=== PATIENT | male | born 1950 | race Caucasian/White ===

== ENCOUNTER 2019-08-08 14:22 | Emergency (ER) | payer OTHER ==
[2019-08-08 15:21] LABS: Basophils % 0.6 % (0-1.3); Lymphocytes % 10.1 % (15.3-44.8); MPV 7.8 fL (7.6-11.3); RBC Red Blood Cell Count 3.82 M/uL (4.33-5.43)
[2019-08-08 15:34] LABS: Albumin 3.5 g/dL (3.4-5.0); Bilirubin Direct 0.2 mg/dL (0-0.2); Bilirubin Total 0.6 mg/dL (0.2-1.0); Potassium 4.4 mmol/L (3.5-5.1); Protein, Total 7.9 g/dL (6.4-8.2)
--- NOTE | 2019-08-08 16:42 | RAD REPORT ---
EXAM DESCRIPTION: CT - Abdomen Pelvis Wo Contrast - 08/08/2019 4:20 pm CLINICAL HISTORY: ABD PAIN COMPARISON: CT ABD PELVIS W WO CONTRAST dated 01/11/2010 TECHNIQUE: Axial [address] imaging of the abdomen and pelvis was performed without IV contrast. No IV contrast was given because of allergy, abnormal renal function, patient refusal or physician re quest. No oral contrast administered. All CT scans are performed using dose optimization technique as appropriate and may include automated exposure control or mA/KV adjustment according to patient size. FINDINGS: No suspicious findings in the lung bases. The liver, spleen and pancreas show no suspicious findings on non-contrast imaging. Gallbladder and b iliary tree are also without suspicious finding. Moderate hydronephrosis of the pelvis and calices on the right noted secondary to an 8 mm UPJ calculu s. No other obstructing or nonobstructing calculi seen. Right kidney is mildly edematous when compare d with the left. No left-sided calculus or hydronephrosis. There is stranding along the course of the right ureter and there is stranding in the right lower quadrant. This is believed to be related a nd not appendicitis stranding. Nonobstructing calculi are seen in the lower pole of the right kidney. An exophytic 20 millimeter homogeneous hyperdense right renal mass is believed to be a high protein content cysts. The cyst has enlarged from 2009. No significant adrenal finding. Isodense renal masses and pyelonephritis cannot be excluded in the absence of IV contrast. The urinary bladder is without significant finding. Parapelvic cysts noted on the left. No dilated bowel loops or bowel wall thickening. Moderate stool volume is present in the colon. Acute appendicitis is not suspected. No free air or pneumatosis. No mass or bulky lymphadenopathy. Bilater al fat filled inguinal hernias are present. Disc and bone degenerative changes are present. Advanced degenerative disc disease present at L2-3 an d L3-4. No pathologic bone process. Dense arterial tree calcifications are present. IMPRESSION: Moderate severity hydronephrosis of the right side pelvis and calices secondary to an 8 mm UPJ calculus. Stranding is present along the course of the right ureter and there is stranding in the right lower q uadrant that is believed to be related to the system and not related to appendicitis. Full assessment is limited is the absence of IV contrast.
[2019-08-08] MEDS ORDERED: ONDANSETRON 4 MG/2 ML VIAL ONE ×2 (17:50→19:48)
[2019-08-08] MEDS ORDERED: MORPHINE 4 MG/ML SYR ONE (17:50)
--- NOTE | 2019-08-08 18:44 | ER ---
Nurse's Notes [facility] Name: Jose Perry Age: 68 yrs Sex: Male : 1950 Arrival Date: 08/08/2019 Time: 14:24 Bed 6 Private MD: Sagar Cavanaugh Diagnosis: 8 mm right UPJ stone, right hydronephrosis;Abdominal and pelvic pain;Unspecified kidney failure Presentation: 08/07 14:33 Chief complaint: Chief complaint: Patient states: RLQ pain x 7 days, feeling bloated, jl7 constipated, last BM 08/06/2019 with bilateral flank pain for a few days now. Denies nausea. Coronavirus screen: The patient has NOT traveled to a country currently being monitored by the CDC within the last 14 days. Proceed with normal triage procedures. Ebola Screen: No symptoms or risks identified at this time. Initial Sepsis Screen: Does the patient meet any 2 criteria? No. Patient's initial sepsis screen is negative. Does the patient have a suspected source of infection? No. Patient's initial sepsis screen is negative. Risk Assessment: Do you want to hurt yourself or someone else? Patient reports no desire to harm self or others. Onset of symptoms was August 01, 2019. 14:33 Method Of Arrival: Ambulatory [facility] 14:33 Acuity: JESISKA 3 jl7 Triage Assessment: 14:40 General: Appears in no apparent distress. uncomfortable, Behavior is calm, cooperative, jl7 appropriate for age. Pain: Complains of pain in right lower quadrant Pain currently is 4 out of 10 on a pain scale. Neuro: Level of Consciousness is awake, alert, obeys commands. GI: Abdomen is non-distended. Historical: - Allergies: 14:40 No Known Allergies; jl7 - Home Meds: 14:40 Metformin Oral [Active]; losartan oral oral [Active]; jl7 - PMHx: 14:40 Diabetes - NIDDM; Hypertension; jl7 - PSHx: 14:40 corneal transplant- right; jl7 - Immunization history:: Adult Immunizations not up to date. - Social history:: Smoking status: Patient denies any tobacco usage or history of. Screenin:15 Abuse screen: Denies threats or abuse. Denies injuries from another. Nutritional sg screening: No deficits noted. Tuberculosis screening: No symptoms or risk factors identified. Never had TB. Fall Risk None identified. Assessment: 15:00 General: Appears in no apparent distress. uncomfortable, well groomed, well developed, sg well nourished, Behavior is calm, cooperative, appropriate for age. Pain: Complains of pain in right lower quadrant Quality of pain is described as aching. Neuro: Level of Consciousness is awake, alert, obeys commands, Oriented to person, place, time, End User Support Specialist are equal bilaterally Moves all extremities. Speech is normal, Facial symmetry appears normal. Cardiovascular: Capillary refill is brisk in bilateral fingers Patient's skin is warm and dry. Chest pain is denied. Respiratory: Airway is patent Respiratory effort is even, unlabored, Respiratory pattern is regular, symmetrical. GI: Abdomen is round non-distended, obese, Bowel sounds present X 4 quads. Abd is soft X 4 quads Abdomen is tender to palpation in right lower quadrant. : Reports pain in right flank(s). EENT: No signs and/or symptoms were reported regarding the EENT system. Derm: Skin is pink, warm \T\ dry. Musculoskeletal: Circulation, motion, and sensation intact. Range of motion: intact in all extremities. 16:30 Reassessment: Patient appears in no apparent distress at this time. Patient and/or hb family updated on plan of care and expected duration. Pain level reassessed. Patient is alert, oriented x 3, equal unlabored respirations, skin warm/dry/pink. 17:30 Reassessment: Patient appears in no apparent distress at this time. Patient and/or hb family updated on plan of care and expected duration. Pain level reassessed. Patient is alert, oriented x 3, equal unlabored respirations, skin warm/dry/pink. 18:30 Reassessment: Patient appears in no apparent distress at this time. Patient and/or hb family updated on plan of care and expected duration. Pain level reassessed. Patient is alert, oriented x 3, equal unlabored respirations, skin warm/dry/pink. 19:30 Reassessment: Patient appears in no apparent distress at this time. Patient and/or ah family updated on plan of care and expected duration. Pain level reassessed. Pt states that pain is creeping back up. He rates it at 4/10. Informed Dr Aranda and her gave order for Dilaudid and Zofran. No other needs voiced at this time. 20:50 Reassessment: Report called to BE Olivares. Receiving nurse. Vital Signs: 14:33 BP 138 / 66; Pulse 58; Resp 16 S; Temp 98.2(O); Pulse Ox 97% on R/A; Pain 4/10; jl7 17:00 BP 141 / 75; Pulse 49; Resp 16; Pulse Ox 100% on R/A; Pain 5/10; hb 18:00 BP 137 / 71; Pulse 48; Resp 16; Pulse Ox 99% on R/A; hb 19:33 BP 136 / 67; Pulse 50; Resp 17; Pulse Ox 99% ; ah 20:30 BP 142 / 82; Pulse 52; Resp 17; Temp 98; Pulse Ox 98.0% ; ah ED Course: 14:24 Patient arrived in ED. ag5 14:24 Sagar Cavanaugh MD is Private Physician. ag5 14:39 Triage completed. jl7 14:40 Arm band placed on right wrist. jl7 14:53 Rey Lizama MD is Attending Physician. kdr 15:00 Patient has correct armband on for positive identification. Bed in low position. Call sg light in reach. equipment monitor phototypesetting on. Pulse ox on. NIBP on. Head of bed elevated. 15:42 Initial lab(s) drawn, by ED staff, sent to lab. Inserted saline lock: 20 gauge in right sg antecubital area, using aseptic technique. 16:14 Adi Lovett RN is Primary Nurse. 16:21 CT completed. Patient tolerated procedure well. Patient moved to OR via wheelchair. nv Patient moved back from OR. 19:08 Attending Physician role handed off by Rey Lizama MD [facility] 19:08 Tre Aranda MD is Attending Physician. [facility] 19:52 Urine Culture Sent. 4 21:00 No provider procedures requiring assistance completed. Patient transferred, IV remains in place. intact. Administered Medications: 17:50 Drug: morphine 4 mg {Note: pre medication Alert and calm - 0 .} Route: IVP; Site: right dm5 antecubital; 21:33 Follow up: Response: No adverse reaction 17:51 Drug: Zofran (Ondansetron) 4 mg Route: IVP; Site: right antecubital; dm5 21:33 Follow up: Response: No adverse reaction 19:37 Drug: Rocephin 1 grams Route: IV; Rate: per protocol; Site: right antecubital; 19:50 Drug: Zofran (Ondansetron) 4 mg Route: IVP; Site: left antecubital; 21:33 Follow up: Response: No adverse reaction 19:51 Drug: Dilaudid 0.5 mg {Note: RASS 1.} Route: IVP; Site: left antecubital; 21:33 Follow up: Response: No adverse reaction 21:10 Drug: Dilaudid 0.5 mg Route: IVP; Site: right antecubital; 21:32 Follow up: Response: No adverse reaction; Pain is decreased Outcome: 18:40 ER care complete, transfer ordered by . kdr 20:50 Transferred by ground EMS to [facility], Transfer form completed. X-rays sent w/ patient. 20:50 Condition: stable 20:50 Discharge instructions given to patient, family, Instructed on the need for transfer, Demonstrated understanding of instructions. 21:35 Patient left the ED. Addendum: 08/13/2019 08:02 Addendum: Culture Results: Positive urine culture. Phone call Attempt #1 Called [facility]. Pt has been treated and discharged home to follow up. Signatures: Mulu Galvan RN BE dm5 Adi Lovett RN RN sg Anderson, Corey, MD MD cha Rittger, Kevin, MD MD kdr Smirch, Shelby, RN RN ss Swanson, Donovan ds4 Peggy York RN RN hb Jordan, Nathan nj Leal, Jahala, RN RN jl7 Perla Peraza Amy, RN RN Corrections: (The following items were deleted from the chart) 08/07 18:03 17:50 morphine 4 mg IVP in right antecubital frederic dm5 19:57 19:51 Dilaudid 0.5 mg IVP in left antecubital [facility]
--- NOTE | 2019-08-08 18:44 | EDPHYS ---
Physician Documentation [facility] Name: Jose Perry Age: 68 yrs Sex: Male : 1950 Arrival Date: 08/08/2019 Time: 14:24 Bed 6 Private MD: Sagar Cavanaugh ED Physician Tre Aranda HPI: 08/07 18:46 This 68 yrs old Male presents to ER via Ambulatory with complaints of kdr Abdominal Pain. 18:46 The patient presents with abdominal pain right lower quadrant, Also, bilateral flank kdr pain and bloating. Onset: The symptoms/episode began/occurred gradually, 7 day(s) ago. The symptoms radiate to both flanks. Associated signs and symptoms: Pertinent positives: nausea. The symptoms are described as achy, crampy, dull, vague, waxing/waning. Modifying factors: The symptoms are alleviated by nothing, the symptoms are aggravated by movement. Severity of pain: At its worst the pain was moderate severe this morning, in the emergency department the pain has improved mildly. The patient has not experienced similar symptoms in the past. The patient has not recently seen a physician. Historical: - Allergies: 14:40 No Known Allergies; jl7 - Home Meds: 14:40 Metformin Oral [Active]; losartan oral oral [Active]; jl7 - PMHx: 14:40 Diabetes - NIDDM; Hypertension; jl7 - PSHx: 14:40 corneal transplant- right; jl7 - Immunization history:: Adult Immunizations not up to date. - Social history:: Smoking status: Patient denies any tobacco usage or history of. ROS: 18:46 Constitutional: Negative for fever, chills, and weight loss, Eyes: Negative for injury, kdr pain, redness, and discharge, ENT: Negative for injury, pain, and discharge, Neck: Negative for injury, pain, and swelling, Cardiovascular: Negative for chest pain, palpitations, and edema, Respiratory: Negative for shortness of breath, cough, wheezing, and pleuritic chest pain, : Negative for injury, bleeding, discharge, and swelling, MS/Extremity: Negative for injury and deformity, Skin: Negative for injury, rash, and discoloration, Neuro: Negative for headache, weakness, numbness, tingling, and seizure activity. Psych: Negative for depression, anxiety, suicide ideation, homicidal ideation, and hallucinations, Allergy/Immunology: Negative for hives, rash, and allergies, Endocrine: Negative for neck swelling, polydipsia, polyuria, polyphagia, and marked weight changes, Hematologic/Lymphatic: Negative for swollen nodes, abnormal bleeding, and unusual bruising. 18:46 Abdomen/GI: Positive for abdominal pain, nausea, Negative for abdominal cramps, abdominal distension, anorexia, black/tarry stool, rectal pain. Exam: 18:46 Constitutional: This is a well developed, well nourished patient who is awake, alert, kdr and in no acute distress. Head/Face: Normocephalic, atraumatic. Eyes: Pupils equal round and reactive to light, extra-ocular motions intact. Lids and lashes normal. Conjunctiva and sclera are non-icteric and not injected. Cornea within normal limits. Periorbital areas with no swelling, redness, or edema. Neck: Trachea midline, no thyromegaly or masses palpated, and no cervical lymphadenopathy. Supple, full range of motion without nuchal rigidity, or vertebral point tenderness. No Meningismus. Chest/axilla: Normal chest wall appearance and motion. Nontender with no deformity. No lesions are appreciated. Cardiovascular: Regular rate and rhythm with a normal S1 and S2. No gallops, murmurs, or rubs. Normal PMI, no JVD. No pulse deficits. Respiratory: Lungs have equal breath sounds bilaterally, clear to auscultation and percussion. No rales, rhonchi or wheezes noted. No increased work of breathing, no retractions or nasal flaring. Skin: Warm, dry with normal turgor. Normal color with no rashes, no lesions, and no evidence of cellulitis. MS/ Extremity: Pulses equal, no cyanosis. Neurovascular intact. Full, normal range of motion. Neuro: Awake and alert, GCS 15, oriented to person, place, time, and situation. Cranial nerves II-XII grossly intact. Motor strength 5/5 in all extremities. Sensory grossly intact. Cerebellar exam normal. Normal gait. Psych: Awake, alert, with orientation to person, place and time. Behavior, mood, and affect are within normal limits. 18:46 Abdomen/GI: Inspection: abdomen appears normal. Vital Signs: 14:33 BP 138 / 66; Pulse 58; Resp 16 S; Temp 98.2(O); Pulse Ox 97% on R/A; Pain 4/10; jl7 17:00 BP 141 / 75; Pulse 49; Resp 16; Pulse Ox 100% on R/A; Pain 5/10; hb 18:00 BP 137 / 71; Pulse 48; Resp 16; Pulse Ox 99% on R/A; hb 19:33 BP 136 / 67; Pulse 50; Resp 17; Pulse Ox 99% ; ah 20:30 BP 142 / 82; Pulse 52; Resp 17; Temp 98; Pulse Ox 98.0% ; ah MDM: 18:40 Patient medically screened. kdr 19:16 Data reviewed: vital signs, nurses notes, lab test result(s), radiologic studies, CT iglesia scan. 08/07 15:06 Order name: Basic Metabolic Panel 08/07 15:06 Order name: CBC with Diff 08/07 15:06 Order name: Creatinine for Radiology 08/07 15:06 Order name: Hepatic Function 08/07 15:06 Order name: Lipase 08/07 15:27 Order name: CBC with Automated Diff; Complete Time: 16:01 EDNY 08/07 15:34 Order name: Creatinine (Radiology Only); Complete Time: 16:01 EDNY 08/07 15:39 Order name: Basic Metabolic Panel; Complete Time: 16:01 EDNY 08/07 15:39 Order name: Liver (Hepatic) Function; Complete Time: 16:01 EDNY 08/07 15:39 Order name: Lipase; Complete Time: 16:01 EDNY 08/07 16:01 Order name: CT Abd/Pelvis - IV Contrast Only [facility] 08/07 17:49 Order name: Abdomen ; Complete Time: 19:16 EDNY 08/07 19:18 Order name: Urine Culture [facility] 08/07 19:53 Order name: Urine Dipstick--Ancillary (enter results) ds4 08/07 15:06 Order name: IV Saline Lock; Complete Time: 15:08 08/07 15:06 Order name: Labs collected and sent; Complete Time: 15:08 08/07 19:18 Order name: Urine Dipstick-Ancillary (obtain specimen); Complete Time: 19:52 [facility] Administered Medications: 17:50 Drug: morphine 4 mg {Note: pre medication Alert and calm - 0 .} Route: IVP; Site: right dm5 antecubital; 21:33 Follow up: Response: No adverse reaction 17:51 Drug: Zofran (Ondansetron) 4 mg Route: IVP; Site: right antecubital; dm5 21:33 Follow up: Response: No adverse reaction 19:37 Drug: Rocephin 1 grams Route: IV; Rate: per protocol; Site: right antecubital; 19:50 Drug: Zofran (Ondansetron) 4 mg Route: IVP; Site: left antecubital; 21:33 Follow up: Response: No adverse reaction 19:51 Drug: Dilaudid 0.5 mg {Note: RASS 1.} Route: IVP; Site: left antecubital; 21:33 Follow up: Response: No adverse reaction 21:10 Drug: Dilaudid 0.5 mg Route: IVP; Site: right antecubital; 21:32 Follow up: Response: No adverse reaction; Pain is decreased Disposition: 08/08/19 18:40 Transfer ordered to [facility]. Diagnosis are 8 mm right UPJ stone, right hydronephrosis, Abdominal and pelvic pain, Unspecified kidney failure. - Reason for transfer: Higher level of care. - Accepting physician is [facility]. - Condition is Fair. - Problem is new. - Symptoms have improved. Signatures: Dispatcher [employer] EDMulu Dailey RN RN dm5 Adi Lovett RN RN sg Anderson, Corey, MD MD cha Rittger, Kevin, MD MD kdr Leal, Jahala, RN RN jl7 Gayle Armando RN RN Corrections: (The following items were deleted from the chart) 19:20 18:40 08/08/2019 18:40 Transfer ordered to [facility]. iglesia Diagnosis is 8 mm right UPJ stone, right hydronephrosis; Abdominal and pelvic pain. Reason for transfer: Higher level of care. Accepting physician is [facility]. Condition is Fair. Problem is new. Symptoms have improved. kdr 21:35 19:20 08/08/2019 18:40 Transfer ordered to [facility]. Diagnosis is 8 mm right UPJ stone, right hydronephrosis; Abdominal and pelvic pain; Unspecified kidney failure. Reason for transfer: Higher level of care. Accepting physician is [facility]. Condition is Fair. Problem is new. Symptoms have improved. iglesia
[2019-08-08] MEDS ORDERED: CEFTRIAXONE/SWI 1gm 1 GM/10 ML SYR ONE (19:34)
[2019-08-08] MEDS ORDERED: HYDROMORPHONE HCL 0.5 MG/0.5 ML INJ ONE ×2 (19:48→21:09)
[2019-08-08 20:09] LABS: Urine Blood NEGATIVE (NEG); Urine Glucose NEGATIVE (NEG); Urine Protein 2+ (NEG); Urine Specific Gravity 1.025 (1.005-1.030); Urine pH 5.5 (5.0-7.0)
[2019-08-08 21:53] VITALS: O2SAT 99
[2019-08-08 21:56] VITALS: BP 142/82; TEMP 98
== END 2019-08-08 21:35 | disposition short-term general hospital (02) ==
LOC: ER 14:22
DX: N13.2 Hydronephrosis with renal and ureteral calculous obstruction (principal); N19 Unspecified kidney failure; I10 Essential (primary) hypertension; E11.9 Type 2 diabetes mellitus without complications
CPT/HCPCS: 87088; 85025; 87086; 80048; 36415; 80076; 87077; 87186; 81003; 83690; 74176; 99285; J1170 ×2; J0696; J2405 ×2

== ENCOUNTER 2020-12-02 15:42 | Emergency (ER) | payer OTHER ==
--- OUTSIDE RECORDS SUMMARY | 2020-12-02 15:44 | XMS REPORT | Continuity of Care Document ---
:1950 Author Organization [facility] t Address [address] [place] [place] [address] Care Team Providers Name Role Phone Ronald Cavanaugh Primary Care Physician Maikol Huang MD Attending Clinician Maikol Huang MD Attending Clinician Nirav NGUYEN Attending Clinician Yuriy LEE Attending Clinician MAIKOL HUANG Attending Clinician Unavailable AYO GALVAN Attending Clinician Unavailable MAIKOL HUANG Admitting Clinician Unavailable AYO GALVAN Admitting Clinician Unavailable Payers Payer Name Policy Type Policy Effective Date Expiration Date Sour ce Number MEDICAREMEDICARE PART [id number] 2018 Stewart Del nAgel [id number] 2017- 00:00:00 - Alysha lowery PresentMedicare Center CIGNA - MGD CARECIGNA [id number] 2016 Stewart Del Angel HMO/POS/OPEN 00:00:00 - Medical [id number]/ [place] [address] C[facility]NACIGNA OPEN [id number] 2013 [place] ACCESS/NETWORKxxxxxxx 00:00:00 Met jony 231 2013-Present MO Problems Condition Condition Condition Status Onset Resolution Last Treating Co mments Source Name Details Category Date Date Treatment Clinician Date Hydronephr Hydronephr Disease Active [facility] osis with osis with 3-13 [facility] - urinary urinary 00:00: Medical obstructio obstructio 00 Ce nter n due to n due to renal renal calculus calculus Allergies, Adverse Reactions, Alerts Allergy Allergy Status Severity Reaction(s) Onset Inactive Treating Comm ents Source Name Type Date Date Clinician No Known DA Active U [facility] Allergie 4-24 [place] s 00:00: d 00 [facility] Family History Family Member Diagnosis Comments Start Date Stop Date Source Natural brother Hypertension [facility] Natural brother Cancer [facility] Natural father Cancer [facility] Natural father Hypertension [facility] Natural sister Cancer [facility] Natural sister Hypertension [facility] Social History Social Habit Start Date Stop Date Quantity Comments Source History SDOH [facility] Dr[facility] History [facility] - Alcohol Binge Medical Robbi [facility] Sex Assigned At [facility] Tobacco use and 2019-12-25 2019-12-[address] [facility] k[facility] - exposure 00:00:00 00:00:00 [facility] Alcohol intake 2019-12-25 2019-12-25 [facility] 00:[facility]00:00 alcohol (finding) [facility] Center History SDOH 2019-08-08 2019-08-[address] [facility] - Alcohol Frequency 00:00:00 00:00:00 [facility] Alcohol Comment 2019-08-08 2019-08-08 occassionaly [address] [facility] - 00:00:00 00:00:00 2-3 days [facility] Smoking Status Start Date Stop Date Source Never smoker [facility] Medications Ordered Filled Start Stop Current Ordering Indication Dosage Frequency Signature Comments Components Source Medication Medication Date Date Medication? Clinician (SIG) Name Name metFORMIN Yes 1000mg Take 1,[address] (GLUCOPHAGE 7-29 mg by Lukes - ) 1000 MG 11:19: mouth 2 Medic al tablet 10 (two) Center times daily with breakfast and dinner. minoxidil 2020-0 Yes 10mg QD Take [address] (LONITEN) 12-24 by mouth [facility]ukes - 10 MG 11:19: daily. Medical tablet 10 Center latanoprost 2020-0 Yes 1[drp] QD Place [address] (XALATAN) - drop into [facility] - 0.005 % 11:19: both eyes Medic al ophthalmic 10 nightly . Cent er solution aspirin 81 2020-0 Yes 81mg QD Take [address] MG EC 12-24 by mouth [facility]ukes - tablet 11:19: daily. Medical 10 Center AMLODIPINE 2020-0 Yes 10mg QD [address] BESYLATE, 12-24 Miscellane Luke s - BULK, MISC 11:19: ous route Me dical 10 nightly. Center hydroCHLORO 2020-0 Yes 12.5mg QD Take 12.[address] thiazide - mg by Lukes - (HYDRODIURI 11:19: mouth Medic al L) 12.5 MG 10 daily. Center tablet fluorometho 2020-0 Yes 1[drp] QD Place [address] lone (FML) 12-24 drop into Luke s - 0.1 % 11:19: the right Medical ophthalmic [address] suspension cholecalcif 2020-0 Yes Take by [facility] daniel, 12-24 mouth. [facility]ukes - vitamin D3, 11:19: Medica l (VITAMIN D3 10 Center ORAL) cyanocobala 2020-0 Yes Take by [facility] min, 12-24 mouth. [facility]ukes - vitamin 11:19: Medical B-12, 10 Center (VITAMIN B-12 ORAL) omega-3 2020-0 Yes 1{tbl} Take [address] fatty acids - tablet by Monika es - (FISH OIL 11:19: mouth. Medica l CONCENTRATE 10 Center ORAL) ascorbic 2020-0 Yes 1{tbl} Take 1 [facility]I S t acid - tablet by Lukes - (VITAMIN C 11:19: mouth. Medic al ORAL) 10 Center gatifloxaci 2020-0 Yes 1[drp] Apply [address] n 0.5 % - drop to [facility] - Drop 11:19: eye(s) Medical 10 Administer Center in right eye . UNKNOWN 2020-0 Yes [place] XL . [facility] 12-24 [facility] - 11:19: [address] Vital Signs Vital Name Observation Time Observation Value Comments Source Systolic blood 2019-12-25 11:00:00 143 mm[Hg] [facility] Diastolic blood 2019-12-25 11:00:00 58 mm[Hg] [facility] Heart rate 2019-12-25 11:00:00 75 /min [facility] Respiratory rate 2019-12-25 11:00:00 22 /min [facility] Oxygen saturation in 2019-12-25 11:00:00 95 /min [facility] Arterial blood by Medical Ce nter Pulse oximetry Body temperature 2019-12-25 10:35:00 36.56 Dina [facility] Body height 2019-12-23 16:34:00 170.2 cm [facility] Body weight 2019-12-23 16:34:00 92.987 kg [facility] BMI 2019-12-23 16:34:00 32.11 kg/m2 [facility] Procedures Procedure Date / Time Performed Performing Clinician [facility] e TRANSPLANT,CORNEAL 2019-12-25 08:36:00 Devonte Huang I [facility] POCT-GLUCOSE METER 2019-12-25 07:19:00 Devonte Huang I [facility] ACRIDINE ORANGE STAIN 2019-12-20 15:00:00 [facility]onte Huang [facility] EYE C[facility]URE, 2019-12-20 15:00:00 [facility]onte [facility] ANAEROBIC EYE CULTURE 2019-12-20 15:00:00 [facility]onte [facility] GRAM STAIN 2019-12-20 15:00:00 [facility]onte [facility] FUNGUS CULTURE 2019-12-20 15:00:00 Devonte [facility] Plan of Care Planned Activity Planned Date Details Comments Source Future Scheduled 2021-01-27 INFLUENZA VACCINE [facility] 00:00:00 (Season Ended) [code = [facility] INFLUENZA VACCINE (Season Ended)] Future Scheduled 2020-12-27 INFL[place]ZA VACCINE [place] [facility] 00:00:00 [code = INFLUENZA VACCINE] Future Scheduled 2020-05-[address] [facility] - Test 00:00:00 (12+) [code = Medical Center DEPRESSION SCREENING (12+)] Future Scheduled 2013 PNEUMOCOCCAL 65+ YRS [facility] - Test 00:00:00 (1 of 1 - Medical Center [id number] PCV13) [code = PNEUMOCOCCAL 65+ YRS (1 of 1 - [id number] PCV13)] Future Scheduled 2013 65+ PNEUMOCOCCAL [facility] Test 00:00:00 VACCINE (1 of 1 - PPSV23) [code = 65+ PNEUMOCOCCAL VACCINE (1 of 1 - PPSV23)] Future Scheduled 1998 SHINGLES VACCINES ([address] [facility] - Test 00:00:00 of 2) [code = SHINGLES Medic al Center VACCINES (1 of 2)] Future Scheduled 1998 COLONOSCOPY SCREENING [place] [facility] 00:00:00 [code = COLONOSCOPY SCREENING] Future Scheduled 1998 SHINGLES VACCINES (#1) [place] [facility] Test 00:00:00 [code = SHINGLES VACCINES (#1)] Future Scheduled 1967-11-18 DTAP/TDAP/TD VACCINES [facility] Test 00:00:00 (1 - Tdap) [code = Medical C enter DTAP/TDAP/TD VACCINES (1 - Tdap)] Future Scheduled 1966 HEPATITIS C SCREENING [facility] Test 00:00:00 [code = HEPATITIS C Medical Center SCREENING] Future Scheduled 1960 COVID-19 VACCINE (1) [facility] - Test 00:00:00 [code = COVID-[address] VACCINE (1)] Future Scheduled 1960 COVID-19 VACCINE (1) [facility] Test 00:00:00 [code = COVID-19 VACCINE (1)] Future Scheduled [address] [facility] - Test 00:00:00 [facility] colon (procedure) [code = 796974810] Encounters Start End Encounter Admission Attending Care Care Encounter Source Date/Time Date/Time Type Type Clinicians Facility Department ID 2020-03-02 2020-03-02 AYSE Duron [id number] 10:45:08 10:55:08 Visit Devonte AMBULATOR [id number] Maikol Y 0.2.7.2.686 [id number] 300 2020-01-28 2020-01-28 Office AYSE Huang [id number] 12:31:31 12:41:31 Visit Devonte AMBULATOR [id number] Maikol Y 0.2.7.2.686 [id number] 300 2020-01-20 2020-01-20 Office AYSE Huang 1.2.840.114 [id number] 10:26:35 10:36:35 Visit Devonte AMBULATOR [id number] Maikol Y 0.2.7.2.686 [id number] 300 2020-01-06 2020-01-06 Office AYSE Huang 1.2.840.114 [id number] 07:26:28 07:36:28 Visit Devonte AMBULATOR [id number] Maikol Y 0.2.7.2.686 [id number] 300 2019-12-30 2019-12-30 Office AYSE Huang 1.2.840.114 [id number] 09:40:16 09:50:16 Visit Devonte AMBULATOR 350.1.13.21 Maikol Y 0.2.7.2.686 [id number] 300 2019-12-26 2019-12-26 Office AYSE Huang 1.2.840.114 [id number] 15:46:14 15:56:14 Visit Devonte AMBULATOR 350.1.13.21 Maikol Y 0.2.7.2.686 [id number] 300 2019-12-24 2019-12-24 Office AYSE Huang 1.2.840.114 [id number] 12:29:14 12:39:14 Visit Devonte AMBULATOR 350.1.13.21 Maikol Y 0.2.7.2.686 [id number] 300 2019-12-23 2019-12-23 Office AYSE Huang 1.2.840.114 [id number] 09:45:01 10:26:23 Visit Devonte AMBULATOR 350.1.13.21 Maikol Y 0.2.7.2.686 [id number] 300 2019-12-21 2019-12-21 [facility] Candice [facility] 1.2.840.114 [id number] 09:00:00 09:10:00 Visit Devonte AMBULATOR 350.1.13.21 Maikol Y 0.2.7.2.686 [id number] 300 2019-12-20 2019-12-20 [facility] Candice [facility] 1.2.840.114 [id number] 13:44:32 17:12:04 Visit Devonte AMBULATOR 350.1.13.21 Maikol Y 0.2.7.2.686 [id number] 300 2019-12-20 2019-12-[address] [facility] [id number] [address] [place] [address] 00:00:00 00:00:00 DEVONTE Chowdary[address] 2019-07-23 2019-07-23 [facility] 1.2.840.114 [id number] 13:06:08 13:16:08 Visit Devonte AMBULATOR 350.1.13.21 Maikol Y 0.2.7.2.686 [id number] 300 2019-01-15 2019-01-15 [facility] Candice [facility] 1.2.840.114 [id number] 14:15:43 14:30:43 Visit Devonte AMBULATOR 350.1.13.21 Maikol Y 0.2.7.2.686 [id number] 300 Results Test Description Test Time Test Comments Results Result Comments Source Fungus culture 2020-01-18 00:16:03 Test Item Value Reference Range Interpretation Comme nts Fungus culture isolate No growth after 4 weeks of Specimen InformationSpecimen (test code = 1441) incubation. Source: C orneal scrapingSpecimen Site: Right Eye [place] Vanesa [id number] 07:08:56 Test Item Value Reference Interpretation Comments Range Eye culture Corynebacterium A Specimen isolate (test code pseudodiphtheritic Inf ormationSpecimen = 1369) um1+Growth first Source: Cor mala detected on scrapingSpecime n Site: Blood/Chocolate Right Eye agar on day 2Interpretations of the ARACELY values are based on serum and urinelevels. Interpret results accordingly.Interp retations of the ARACELY values are based on serum and urinelevels. Interpret results accordingly. Lab Interpretation Abnormal (test code = 75854-3) [place] Vanesa culture, [id number] 07:08:56 Test Item Value Reference Interpretation Comments Range Eye culture Cutibacterium acnes A Specimen isolate, (formerly InformationSpec imen anaerobic (test Propionibacterium Source: Corneal code = 1370) acnes)Growth first scrapingS pecimen detected on Site: Right Eye [place] blood agar on day 5Interpretations of the ARACELY values are based on serum and urinelevels. Interpret results accordingly. Lab Abnormal Interpretation (test code = 97020-2) [facility] [id number] 07:30:00 Test Item Value Reference Range Interpretation Comments POC-Glucose Meter (test 129 mg/dL 70-110 H : TE STED AT code = 1538) [facility] [address], [address] [place] [address] 0: Host Coordinator/Techni adalid ID = [id number] for [place] TTE Lab Interpretation (test Abnormal code = 71800-2) [facility] [id number] 07:30:00 Test Item Value Reference Range Interpretation Comments POC-GLUCOSE METER 129 mg/dL 70-110 H : TESTED A T [facility] (BEAKER) (test code [address] [facility], BLDG B = 1538) [place] [address] 0: Host Coordinator/Techni adalid ID = [id number] for VANNESSA MCLAIN Fungus [id number] 14:55:25 Test Item Value Reference Range Interpretation Comments Fungus smear No fungi Specimen (test code = observed. InformationSpec imen Source: 1443) Corneal scrapin gSpecimen Site: Right Eye [place] MethodistAcridine orange [id number] 22:01:35Acridine orange stainOccasional WBC'sNo organisms seen Comment: Specimen InformationSpecimen Source:Corneal scrapingSpecimen Site: [facility] MethodistGram [id number] 22:01:35Gram stain isolateCancelled - Gram stain not performed since Acridine orange stain is negative. Comment: Specimen InformationSpecimen Source: Corneal scrapingSpecimen Site: Right Eye [facility] MethodistCALCULI URINARY WITH [id number] 15:09:00 Test Item Value Reference Range Interpretation Comments ST COLOR (test code = Alger () COLST) ST SIZE (test code = 5x4 mm () Multipl e pieces SIZST) received. Dime nsions of the largest piecereported. ST WEIGHT (test code 105.0 mg () = WGTST) ST COMPOSITION (test Comment () Percent age (Represents code = COMPST) the % composi tion) ST URIC ACID (test 100 % () code = URIST) ST PHOTO (test code = Comment () Photog raph will follow PHOTST) under a separat e cover ST COMMENT 3 (test Comment () Physician questions code = CMTST3) regarding Moiz culi Analysis contac [facility]Lab[facility] at: . - XR FLUOROSCOPY 0-60 [id number] 10:11:00 Name: PAULCHRISTINA Lamas [facility] : 1950 Age/S: 68 / M [id number] Unit #: [id number] Loc: [place] [address] Phys: Franko Crowley MD Acct: [id number] Dis Date: Status: [facility] PHONE #: [phone] Exam Date: 09/24/2019 0824 FAX #: Reason: LASER LITHO WITH STENT EXAMS: CPT: [id number] XR FLUOROSCOPY 0-60 MIN 68438 Fluoro Time: 28 SEC DAP (Gy m2): Air Kerma (mGy): EXAM: - XR FLUOROSCOPY 0-60 MINHISTORY: LASER LITHO WITH STENT LOCATION CODE: B2 IMPRESSION: Fluoroscopic images provided for surgical guidance. Please see operative report for full details. Fluoroscopy time:28.9 seconds Cumulative Dose: 8.79 mGy at 1011 Reported and signed by: Edda Diallo MD CC: Franko Crowley MD; Sagar Cavanaugh MD PAGE1 Signed Report Name: CHRISTINA NICHOLS : 1950 Age/S: 68 / M [address] Unit #: [id number] Loc: [place] [address] Phys: Eren josephFranko MD Acct: [id number] Dis Date: Status: REG SDC PHONE #: [phone] Exam Date: 09/24/2019 0845 FAX #: Reason: LASER LITHO WITH STENT EXAMS: CPT: [id number] XR FLUOROSCOPY 0-60 MIN 42388 Fluoro Time: 28 SEC DAP (Gy m2): Air Kerma (mGy): <Continued> Technologist: Maggy Monge, RT(R) Trnscb Date/Time: 09/24/2019 (1011) SaraEB14 Orig Print D/T: S: 09/24/2019 (1015) PAGE 2 Signed ReportGLUCOSE BEDSIDE [id number] 06:32:00 Test Item Value Reference Range Interpretation Comments GLUCOSE BEDSIDE TESTING (test code 141 mg/dL 70-110 H = GLUBED) URINALYSIS [id number] 14:48:00 Test Item Value Reference Range Interpretation Comments RBC UA (BEAKER) (test code = 519) 1072 /HPF WBC UA (BEAKER) (test code = 520) 1555 /HPF Host Coordinator ID - techURINALYSIS WITH MICROSCOPIC IF [id number] 14:37:00 Test Item Value Reference Range Interpretation Comments COLOR (BEAKER) (test code = 470) Red CLARITY (BEAKER) (test code = 469) Cloudy SPECIFIC GRAVITY UA (BEAKER) (test 1.016 1.001-1.035 code = 468) PH UA (BEAKER) (test code = 467) 6.0 5.0-8.0 PROTEIN UA (BEAKER) (test code = 200 mg/dL Negative A 464) GLUCOSE UA (BEAKER) (test code = Negative Negative 365) KETONES UA (BEAKER) (test code = Trace Negative A 371) BILIRUBIN UA (BEAKER) (test code = Negative Negative 462) BLOOD UA (BEAKER) (test code = 461) Large Negative A NITRITE UA (BEAKER) (test code = Negative Negative 465) LEUKOCYTE ESTERASE UA (BEAKER) Large Negative A (test code = 466) UROBILINOGEN UA (BEAKER) (test code 0.2 mg/dL 0.2-1.0 = 463) SOURCE(BEAKER) (test code = 2795) Host Coordinator ID - [auto]FL, FLUORO, NON-SPECIFIC, UP TO 1 [id number] 11:28:00 Reason for exam:->ureter stoneFINAL REPORT Fluoroscopic spot imaging was performed at the time of the procedure by the ordering service. This examination is nondiagnostic. Fluoroscopy was not performed by theundersigned, and the radiologist was not present at the time of examination. Interpretation of the images was not requested. Total fluoroscopy time: 1 minute 42 seconds Total number of films: 32 Pleaserefer to the referring physician's procedure report for complete detail. Signed: Iraj Loredo MDReport Verified Date/Time: 08/10/2019 11:28:32 Reading Location: [address] Transitional Reading Room POCT-GLUCOSE [id number] 11:17:00 Test Item Value Reference Range Interpretation Comments POC-GLUCOSE METER 146 mg/dL 70-110 H : TESTED A T [facility] 6720 (BEAKER) (test code = RUI Lamas [facility], 1538) [address]: Host Coordinator/Techni adalid ID = [id number] for FRANCIA JULES BASIC METABOLIC [id number] 06:56:00 Test Item Value Reference Range Interpretation Comments SODIUM (BEAKER) 137 meq/L 136-145 (test code = 381) POTASSIUM (BEAKER) 4.5 meq/L 3.5-5.1 (test code = 379) CHLORIDE (BEAKER) 103 meq/L 98-107 (test code = 382) CO2 (BEAKER) (test 24 meq/L 22-29 code = 355) BLOOD UREA NITROGEN 30 mg/dL 7-21 H (BEAKER) (test code = 354) CREATININE (BEAKER) 2.07 mg/dL 0.57-1.25 H (test code = 358) GLUCOSE RANDOM 141 mg/dL 70-105 H (BEAKER) (test code = 652) CALCIUM (BEAKER) 9.8 mg/dL 8.4-10.2 (test code = 697) EGFR (BEAKER) (test 32 mL/min/1.73 ESTIMA RADHA GFR IS code = 1092) sq m NOT ACCURATE CREATININE CLEARANCE IN PREDICTING GLOMERULAR FILTRATION RATE . ESTIMATED GFR I S NOT APPLICABLE FOR DIALYSIS PATIEN TS. Host Coordinator ID - KIKA MCBC W/PLT COUNT & AUTO [id number] 06:35:00 Test Item Value Reference Range Interpretation Comments WHITE BLOOD CELL COUNT (BEAKER) 8.2 K/ L 3.5-10.5 (test code = 775) RED BLOOD CELL COUNT (BEAKER) 3.59 M/ L 4.63-6.08 L (test code = 761) HEMOGLOBIN (BEAKER) (test code = 11.7 GM/DL 13.7-17.5 L 410) HEMATOCRIT (BEAKER) (test code = 34.3 % 40.1-51.0 L 411) MEAN CORPUSCULAR VOLUME (BEAKER) 95.5 fL 79.0-92.2 H (test code = 753) MEAN CORPUSCULAR HEMOGLOBIN 32.6 pg 25.7-32.2 H (BEAKER) (test code = 751) MEAN CORPUSCULAR HEMOGLOBIN CONC 34.1 GM/DL 32.3-36.5 (BEAKER) (test code = 752) RED CELL DISTRIBUTION WIDTH 12.1 % 11.6-14.4 (BEAKER) (test code = 412) PLATELET COUNT (BEAKER) (test 278 K/CU MM 150-450 code = 756) MEAN PLATELET VOLUME (BEAKER) 9.6 fL 9.4-12.4 (test code = 754) NUCLEATED RED BLOOD CELLS 0 /100 WBC 0-0 (BEAKER) (test code = 413) NEUTROPHILS RELATIVE PERCENT 71 % (BEAKER) (test code = 429) LYMPHOCYTES RELATIVE PERCENT 16 % (BEAKER) (test code = 430) MONOCYTES RELATIVE PERCENT 9 % (BEAKER) (test code = 431) EOSINOPHILS RELATIVE PERCENT 2 % (BEAKER) (test code = 432) BASOPHILS RELATIVE PERCENT 1 % (BEAKER) (test code = 437) NEUTROPHILS ABSOLUTE COUNT 5.81 K/ L 1.78-5.38 H (BEAKER) (test code = 670) LYMPHOCYTES ABSOLUTE COUNT 1.32 K/ L 1.32-3.57 (BEAKER) (test code = 414) MONOCYTES ABSOLUTE COUNT (BEAKER) 0.75 K/ L 0.30-0.82 (test code = 415) EOSINOPHILS ABSOLUTE COUNT 0.17 K/ L 0.04-0.54 (BEAKER) (test code = 416) BASOPHILS ABSOLUTE COUNT (BEAKER) 0.07 K/ L 0.01-0.08 (test code = 417) IMMATURE GRANULOCYTES-RELATIVE 0 % 0-1 PERCENT (BEAKER) (test code = 2801) POCT-GLUCOSE [id number] 23:53:00 Test Item Value Reference Range Interpretation Comments POC-GLUCOSE METER 168 mg/dL 70-110 H : TESTED A T [facility] 6720 (BEAKER) (test code = [place], 1538) [address]: Host Coordinator/Techni adalid ID = [id number] for GIFTY HOLMAN, HENNA RAD, CHEST, 1 VIEW, NON [id number] 13:37:00Reason for exam:->pre-opShould this be performed at the bedside?->YesFINAL REPORT INDICATION: pre-op COMPARISON: None TECHNIQUE: Single frontal view of the chest. FINDINGS: Lungs and pleura: Clear lungs. No effusion.Heart and mediastinum: Normal heart size. Unremarkable mediastinal contours.Osseous structures: No acute abnormality.Other: None. IMPRESSION: No acute intrathoracic abnormality. Signed: Paras Batista MDReport Verified Date/Time: 08/09/2019 13:37:32 Reading Location: [facility] Radiology Reading Room URINALYSIS W/ REFLEX URINE [id number] 07:47:00 Test Item Value Reference Range Interpretation Comments COLOR (BEAKER) (test code = 470) Yellow CLARITY (BEAKER) (test code = 469) Clear SPECIFIC GRAVITY UA (BEAKER) (test 1.024 1.001-1.035 code = 468) PH UA (BEAKER) (test code = 467) 5.5 5.0-8.0 PROTEIN UA (BEAKER) (test code = 100 mg/dL Negative A 464) GLUCOSE UA (BEAKER) (test code = Negative Negative 365) KETONES UA (BEAKER) (test code = Negative Negative 371) BILIRUBIN UA (BEAKER) (test code = Negative Negative 462) BLOOD UA (BEAKER) (test code = 461) Negative Negative NITRITE UA (BEAKER) (test code = Negative Negative 465) LEUKOCYTE ESTERASE UA (BEAKER) Negative Negative (test code = 466) UROBILINOGEN UA (BEAKER) (test code 2.0 mg/dL 0.2-1.0 H = 463) RBC UA (BEAKER) (test code = 519) 5 /HPF WBC UA (BEAKER) (test code = 520) 3 /HPF MUCUS (BEAKER) (test code = 1574) Rare SQUAMOUS EPITHELIAL (BEAKER) (test 1 /HPF code = 516) HYALINE CASTS (BEAKER) (test code = 3 /LPF 514) SOURCE(BEAKER) (test code = 2795) Host Coordinator ID - [auto]Host Coordinator ID - hankBASIC METABOLIC [id number] 07:13:00 Test Item Value Reference Range Interpretation Comments SODIUM (BEAKER) 139 meq/L 136-145 (test code = 381) POTASSIUM (BEAKER) 4.4 meq/L 3.5-5.1 (test code = 379) CHLORIDE (BEAKER) 105 meq/L 98-107 (test code = 382) CO2 (BEAKER) (test 24 meq/L 22-29 code = 355) BLOOD UREA NITROGEN 30 mg/dL 7-21 H (BEAKER) (test code = 354) CREATININE (BEAKER) 2.06 mg/dL 0.57-1.25 H (test code = 358) GLUCOSE RANDOM 151 mg/dL 70-105 H (BEAKER) (test code = 652) CALCIUM (BEAKER) 9.4 mg/dL 8.4-10.2 (test code = 697) EGFR (BEAKER) (test 32 mL/min/1.73 ESTIMA RADHA GFR IS code = 1092) sq m NOT ACCURATE CREATININE CLEARANCE IN PREDICTING GLOMERULAR FILTRATION RATE . ESTIMATED GFR I S NOT APPLICABLE FOR DIALYSIS PATIEN TS. Host Coordinator ID - KIKA MCBC W/PLT COUNT & AUTO [id number] 06:04:00 Test Item Value Reference Range Interpretation Comments WHITE BLOOD CELL COUNT (BEAKER) 9.3 K/ L 3.5-10.5 (test code = 775) RED BLOOD CELL COUNT (BEAKER) 3.71 M/ L 4.63-6.08 L (test code = 761) HEMOGLOBIN (BEAKER) (test code = 12.3 GM/DL 13.7-17.5 L 410) HEMATOCRIT (BEAKER) (test code = 35.0 % 40.1-51.0 L 411) MEAN CORPUSCULAR VOLUME (BEAKER) 94.3 fL 79.0-92.2 H (test code = 753) MEAN CORPUSCULAR HEMOGLOBIN 33.2 pg 25.7-32.2 H (BEAKER) (test code = 751) MEAN CORPUSCULAR HEMOGLOBIN CONC 35.1 GM/DL 32.3-36.5 (BEAKER) (test code = 752) RED CELL DISTRIBUTION WIDTH 12.4 % 11.6-14.4 (BEAKER) (test code = 412) PLATELET COUNT (BEAKER) (test 270 K/CU MM 150-450 code = 756) MEAN PLATELET VOLUME (BEAKER) 9.4 fL 9.4-12.4 (test code = 754) NUCLEATED RED BLOOD CELLS 0 /100 WBC 0-0 (BEAKER) (test code = 413) NEUTROPHILS RELATIVE PERCENT 75 % (BEAKER) (test code = 429) LYMPHOCYTES RELATIVE PERCENT 14 % (BEAKER) (test code = 430) MONOCYTES RELATIVE PERCENT 9 % (BEAKER) (test code = 431) EOSINOPHILS RELATIVE PERCENT 2 % (BEAKER) (test code = 432) BASOPHILS RELATIVE PERCENT 1 % (BEAKER) (test code = 437) NEUTROPHILS ABSOLUTE COUNT 6.94 K/ L 1.78-5.38 H (BEAKER) (test code = 670) LYMPHOCYTES ABSOLUTE COUNT 1.32 K/ L 1.32-3.57 (BEAKER) (test code = 414) MONOCYTES ABSOLUTE COUNT (BEAKER) 0.81 K/ L 0.30-0.82 (test code = 415) EOSINOPHILS ABSOLUTE COUNT 0.14 K/ L 0.04-0.54 (BEAKER) (test code = 416) BASOPHILS ABSOLUTE COUNT (BEAKER) 0.07 K/ L 0.01-0.08 (test code = 417) IMMATURE GRANULOCYTES-RELATIVE 0 % 0-1 PERCENT (BEAKER) (test code = 2801) POCT-GLUCOSE [id number] 08:29:00 Test Item Value Reference Range Interpretation Comments POC-GLUCOSE METER 178 mg/dL 70-110 H TESTED AT [facility] 7200 (FABYCOLLEEN) (test code KRISTANG E BLDG B = 1538) [facility] 7703 0
[2020-12-02 16:26] LABS: Absolute Lymphocytes (CBC) 0.6 K/uL (0.7-4.9); Basophils % 0.4 % (0-1.3); Hematocrit 39.1 % (39.6-49.0); Lymphocytes % 7.6 % (15.3-44.8); MPV 9.2 fL (7.6-11.3); RBC Red Blood Cell Count 4.27 M/uL (4.33-5.43)
[2020-12-02 16:41] LABS: Protime INR 1.11
[2020-12-02 16:51] LABS: ALT/SGPT 40 U/L (12-78); AST/SGOT 23 U/L (15-37); Albumin 3.4 g/dL (3.4-5.0); Alkaline Phosphatase 107 U/L (45-117); BUN Blood Urea Nitrogen 46 mg/dL (7-18); Bicarbonate 22 mmol/L (21-32); Bilirubin Direct 0.5 mg/dL (0-0.2); Bilirubin Total 1.1 mg/dL (0.2-1.0); Glucose Level 273 mg/dL (74-106); Magnesium 1.7 mg/dL (1.8-2.4); NT PRO-BNP 7796 pg/mL (<125); Protein, Total 8.1 g/dL (6.4-8.2); Sodium Level 133 mmol/L (136-145); Troponin (Emerg Dept Use Only) < 0.02 ng/mL (0.0-0.045)
--- NOTE | 2020-12-02 17:23 | RAD REPORT ---
EXAM DESCRIPTION: Dave Single View12/02/2020 4:56 pm CLINICAL HISTORY: Palpitations COMPARISON: none FINDINGS: The lungs appear clear of acute infiltrate. The heart is mildly enlarged IMPRESSION: No acute abnormalities displayed
--- NOTE | 2020-12-02 18:54 | ER ---
Nurse's Notes [facility] Name: Jose Perry Age: 70 yrs Sex: Male : 1950 Arrival Date: 12/02/2020 Time: 15:44 Bed 26 Private MD: Diagnosis: Unspecified atrial flutter Presentation: 12/02 15:57 Chief complaint: Patient states: Noticed pain to R jaw and R shoulder Monday. R foot ll1 pain, L shoulder/hand pain started Monday morning. + body aches and chills. Today, still has L shoulder/L hand, and bilateral jaw pain still. Went to see his doctor, EKG showed A flutter. Sent in for eval. Coronavirus screen: Client denies travel out of the [place] in the last 14 days. At this time, the client does not indicate any symptoms associated with coronavirus-19. Ebola Screen: Patient denies travel to an Ebola-affected area in the 21 days before illness onset. Initial Sepsis Screen: Does the patient meet any 2 criteria? No. Patient's initial sepsis screen is negative. Does the patient have a suspected source of infection? No. Patient's initial sepsis screen is negative. Risk Assessment: Do you want to hurt yourself or someone else? Patient reports no desire to harm self or others. Onset of symptoms was November 30, 2020. 15:57 Method Of Arrival: Ambulatory ll1 15:57 Acuity: JESSIKA 3 ll1 Historical: - Allergies: 15:56 No Known Allergies; ll1 - Home Meds: 17:23 cholecalciferol (vitamin D3) 25 mcg (1,000 unit) oral cap [Active]; fluorometholone ca1 0.25 % ophthalmic (eye) drps 1 drop 2 times per day [Active]; latanoprost 0.005 % ophthalmic (eye) drop 1 drop once daily [Active]; losartan-hydrochlorothiazide 100-25 mg oral tab 1 tab once daily [Active]; metformin 500 mg oral tr24 2 tabs 2 times per day [Active]; minoxidil 10 mg Oral tab 1 tab once daily [Active]; omega-3 fatty acids 1,000 mg oral cap daily [Active]; - PMHx: 15:56 Diabetes - NIDDM; Hypertension; bradycardia; high cholesterol; ll1 - PSHx: 15:56 cataract repair; kidney stone removal; ll1 - Immunization history:: Flu vaccine is not up to date. - Social history:: Smoking status: Patient denies any tobacco usage or history of. Screenin:15 Abuse screen: Denies threats or abuse. Denies injuries from another. Nutritional ca1 screening: No deficits noted. Tuberculosis screening: No symptoms or risk factors identified. Fall Risk IV access (20 points). Assessment: 16:15 General: Appears in no apparent distress. comfortable, Behavior is calm, cooperative, ca1 appropriate for age. Pain: Complains of pain in jaw and L shoulder Pain currently is 0 out of 10 on a pain scale. at worst was 6 out of 10 on a pain scale. Pain began 2-3 days ago. Is intermittent. Neuro: Level of Consciousness is awake, alert, obeys commands, Oriented to person, place, time, situation. Cardiovascular: Heart tones S1 S2 present Capillary refill < 3 seconds Patient's skin is warm and dry. Rhythm is atrial flutter. Respiratory: Airway is patent Respiratory effort is even, unlabored, Respiratory pattern is regular, symmetrical, Breath sounds are clear bilaterally. GI: Abdomen is round non-distended, Bowel sounds present X 4 quads. Abd is soft and non tender X 4 quads. : No signs and/or symptoms were reported regarding the genitourinary system. EENT: No signs and/or symptoms were reported regarding the EENT system. Derm: Skin is intact, is healthy with good turgor, Skin is pink, warm \T\ dry. Musculoskeletal: Circulation, motion, and sensation intact. Capillary refill < 3 seconds. 16:48 Reassessment: Patient appears in no apparent distress at this time. Patient and/or ca1 family updated on plan of care and expected duration. Pain level reassessed. Patient is alert, oriented x 3, equal unlabored respirations, skin warm/dry/pink. 17:57 Reassessment: Patient appears in no apparent distress at this time. Patient and/or ca1 family updated on plan of care and expected duration. Pain level reassessed. Patient is alert, oriented x 3, equal unlabored respirations, skin warm/dry/pink. 18:49 Reassessment: Patient appears in no apparent distress at this time. Patient and/or ca1 family updated on plan of care and expected duration. Pain level reassessed. Patient is alert, oriented x 3, equal unlabored respirations, skin warm/dry/pink. 19:11 Reassessment: Patient appears in no apparent distress at this time. Patient is alert, ca1 oriented x 3, equal unlabored respirations, skin warm/dry/pink. Vital Signs: 15:57 BP 118 / 62; Pulse 83; Resp 17; Temp 97.7; Pulse Ox 100% ; Weight 93.89 kg; Height 5 ll1 ft. 8 in. (172.72 cm); Pain 2/10; 16:48 BP 147 / 96; Pulse 88; Resp 18 S; Pulse Ox 98% on R/A; ca1 17:57 BP 111 / 78; Pulse 90; Resp 18 S; Pulse Ox 100% on R/A; ca1 18:49 BP 125 / 74; Pulse 83; Resp 16 S; Pulse Ox 98% on R/A; ca1 19:11 BP 135 / 74; Pulse 81; Resp 16 S; Pulse Ox 99% on R/A; ca1 15:57 Body Mass Index 31.47 (93.89 kg, 172.72 cm) ll1 ED Course: 15:44 Patient arrived in ED. ds1 15:55 Arm band placed on. ll1 16:01 Triage completed. ll1 16:03 Nia Pelaez, BE is Primary Nurse. ca1 16:07 Rey Lizama MD is Attending Physician. kdr 16:15 Patient has correct armband on for positive identification. Placed in gown. Bed in low ca1 position. Call light in reach. Side rails up X 1. bus driver/monitor on. Pulse ox on. NIBP on. Warm blanket given. 16:17 No provider procedures requiring assistance completed. Initial lab(s) drawn, by nv, ca1 sent to lab. EKG done, by ED staff, reviewed by Rey Lizama MD. Inserted saline lock: 20 gauge in right antecubital area, using aseptic technique. Blood collected. 16:56 XRAY Chest (1 view) In Process Unspecified. EDMS 18:51 Parveen Rogers MD is Referral Physician. kdr 19:11 IV discontinued, intact, bleeding controlled, No redness/swelling at site. Pressure ca1 dressing applied. Administered Medications: 19:05 Drug: Eliquis (apixaban) 5 mg Route: PO; ca1 19:11 Follow up: Response: Medication administered at discharge. ca1 Outcome: 18:53 Discharge ordered by . kdr 19:11 Discharged to home ambulatory, with family. ca1 19:11 Condition: stable 19:11 Discharge instructions given to patient, Instructed on discharge instructions, follow up and referral plans. medication usage, Demonstrated understanding of instructions, follow-up care, medications, Prescriptions given X 1. 19:11 Patient left the ED. ca1 Signatures: Dispatcher [employer] EDMS Rey Lizama MD MD kdr Sanford, Demi ds1 Nia Pelaez RN RN ca1 Chaya Faye RN RN ll1
--- NOTE | 2020-12-02 18:54 | EDPHYS ---
Physician Documentation [facility] Name: Jose Perry Age: 70 yrs Sex: Male : 1950 Arrival Date: 12/02/2020 Time: 15:44 Bed 26 Private MD: ED Physician Rey Lizama HPI: 12/03 11:35 This 70 yrs old Male presents to ER via Ambulatory with complaints of kdr Abnormal EKG. 11:35 The patient presents with a history of irregular heart beat. Context: The symptoms kdr occur at rest, without known cause, This was an incidental finding on outpatient workup. Onset: The symptoms/episode began/occurred at an unknown time. Duration: The patient or guardian reports a single episode, that is still ongoing. Modifying factors: The symptoms are aggravated by nothing. The symptoms are alleviated by nothing. Associated signs and symptoms: The patient has no apparent associated signs or symptoms. Severity of symptoms: At their worst the symptoms were very mild in the emergency department the symptoms are unchanged. It is unknown whether or not the patient has had similar symptoms in the past. The patient has been recently seen by a physician: the patient's primary care provider. Historical: - Allergies: 12/02 15:56 No Known Allergies; ll1 - Home Meds: 17:23 cholecalciferol (vitamin D3) 25 mcg (1,000 unit) oral cap [Active]; fluorometholone ca1 0.25 % ophthalmic (eye) drps 1 drop 2 times per day [Active]; latanoprost 0.005 % ophthalmic (eye) drop 1 drop once daily [Active]; losartan-hydrochlorothiazide 100-25 mg oral tab 1 tab once daily [Active]; metformin 500 mg oral tr24 2 tabs 2 times per day [Active]; minoxidil 10 mg Oral tab 1 tab once daily [Active]; omega-3 fatty acids 1,000 mg oral cap daily [Active]; - PMHx: 15:56 Diabetes - NIDDM; Hypertension; bradycardia; high cholesterol; ll1 - PSHx: 15:56 cataract repair; kidney stone removal; ll1 - Immunization history:: Flu vaccine is not up to date. - Social history:: Smoking status: Patient denies any tobacco usage or history of. ROS: 12/03 11:35 Constitutional: Negative for fever, chills, and weight loss, Eyes: Negative for injury, kdr pain, redness, and discharge, ENT: Negative for injury, pain, and discharge, Neck: Negative for injury, pain, and swelling, Cardiovascular: Negative for chest pain, palpitations, and edema, Respiratory: Negative for shortness of breath, cough, wheezing, and pleuritic chest pain, Abdomen/GI: Negative for abdominal pain, nausea, vomiting, diarrhea, and constipation, Back: Negative for injury and pain, : Negative for injury, bleeding, discharge, and swelling, MS/Extremity: Negative for injury and deformity, Skin: Negative for injury, rash, and discoloration, Neuro: Negative for headache, weakness, numbness, tingling, and seizure activity. Psych: Negative for depression, anxiety, suicide ideation, homicidal ideation, and hallucinations, Allergy/Immunology: Negative for hives, rash, and allergies, Endocrine: Negative for neck swelling, polydipsia, polyuria, polyphagia, and marked weight changes, Hematologic/Lymphatic: Negative for swollen nodes, abnormal bleeding, and unusual bruising. Exam: 11:35 Constitutional: This is a well developed, well nourished patient who is awake, alert, kdr and in no acute distress. Head/Face: Normocephalic, atraumatic. Eyes: Pupils equal round and reactive to light, extra-ocular motions intact. Lids and lashes normal. Conjunctiva and sclera are non-icteric and not injected. Cornea within normal limits. Periorbital areas with no swelling, redness, or edema. Neck: Trachea midline, no thyromegaly or masses palpated, and no cervical lymphadenopathy. Supple, full range of motion without nuchal rigidity, or vertebral point tenderness. No Meningismus. Chest/axilla: Normal chest wall appearance and motion. Nontender with no deformity. No lesions are appreciated. Respiratory: Lungs have equal breath sounds bilaterally, clear to auscultation and percussion. No rales, rhonchi or wheezes noted. No increased work of breathing, no retractions or nasal flaring. Abdomen/GI: Soft, non-tender, with normal bowel sounds. No distension or tympany. No guarding or rebound. No evidence of tenderness throughout. Back: No spinal tenderness. No costovertebral tenderness. Full range of motion. Skin: Warm, dry with normal turgor. Normal color with no rashes, no lesions, and no evidence of cellulitis. MS/ Extremity: Pulses equal, no cyanosis. Neurovascular intact. Full, normal range of motion. Neuro: Awake and alert, GCS 15, oriented to person, place, time, and situation. Cranial nerves II-XII grossly intact. Motor strength 5/5 in all extremities. Sensory grossly intact. Cerebellar exam normal. Normal gait. Psych: Awake, alert, with orientation to person, place and time. Behavior, mood, and affect are within normal limits. 11:35 Cardiovascular: Rate: normal, Rhythm: irregular. Vital Signs: 12/02 15:57 BP 118 / 62; Pulse 83; Resp 17; Temp 97.7; Pulse Ox 100% ; Weight 93.89 kg; Height 5 ll1 ft. 8 in. (172.72 cm); Pain 2/10; 16:48 BP 147 / 96; Pulse 88; Resp 18 S; Pulse Ox 98% on R/A; ca1 17:57 BP 111 / 78; Pulse 90; Resp 18 S; Pulse Ox 100% on R/A; ca1 18:49 BP 125 / 74; Pulse 83; Resp 16 S; Pulse Ox 98% on R/A; ca1 19:11 BP 135 / 74; Pulse 81; Resp 16 S; Pulse Ox 99% on R/A; ca1 15:57 Body Mass Index 31.47 (93.89 kg, 172.72 cm) ll1 MDM: 18:53 Patient medically screened. [facility] 12/03 11:35 Data reviewed: vital signs, nurses notes, lab test result(s), radiologic studies. kdr Counseling: I had a detailed discussion with the patient and/or guardian regarding: the historical points, exam findings, and any diagnostic results supporting the discharge/admit diagnosis, lab results, radiology results, the need for outpatient follow up. Physician consultation: Parveen Rogers MD regarding consult, patient's condition, and will see patient in office, in 2-3 days, would like medications started, Eliquis 2.5 mg BID. 12/02 16:08 Order name: Basic Metabolic Panel kdr 12/02 16:08 Order name: CBC with Diff; Complete Time: 17:17 kdr 12/02 16:08 Order name: LFT's kdr 12/02 16:08 Order name: Magnesium; Complete Time: 17:17 kdr 12/02 16:08 Order name: NT PRO-BNP; Complete Time: 17:17 kdr 12/02 16:08 Order name: PT-INR; Complete Time: 17:17 kdr 12/02 16:08 Order name: Troponin (emerg Dept Use Only); Complete Time: 17:17 kdr 12/02 16:08 Order name: XRAY Chest (1 view); Complete Time: 18:40 kdr 12/02 16:08 Order name: EKG; Complete Time: 16:08 kdr 12/02 16:08 Order name: Cardiac monitoring; Complete Time: 16:17 kdr 12/02 16:08 Order name: EKG - Nurse/Tech; Complete Time: 16:18 kdr 12/02 16:08 Order name: Basic Metabolic Panel; Complete Time: 17:17 EDMS 12/02 16:08 Order name: Liver (Hepatic) Function; Complete Time: 17:17 EDMS 12/02 16:08 Order name: IV Saline Lock; Complete Time: 16:18 kdr 12/02 16:08 Order name: Labs collected and sent; Complete Time: 16:18 kdr 12/02 16:08 Order name: O2 Per Protocol; Complete Time: 16:18 kdr 12/02 16:08 Order name: O2 Sat Monitoring; Complete Time: 16:18 kdr Administered Medications: 12/02 19:05 Drug: Eliquis (apixaban) 5 mg Route: PO; ca1 19:11 Follow up: Response: Medication administered at discharge. ca1 Disposition Summary: 12/02/20 18:53 Discharge Ordered Location: Home kdr Problem: new kdr Symptoms: have improved kdr Condition: Stable kdr Diagnosis - Unspecified atrial flutter kdr Followup: kdr - With: Parveen Rogers MD - When: 2 - 3 days - Reason: If symptoms return, Further diagnostic work-up, Recheck today's complaints, Continuance of care, Re-evaluation by your physician, Be at his office at 8:30 AM on Monday Discharge Instructions: - Discharge Summary Sheet kdr - Atrial Flutter kdr Forms: - Medication Reconciliation Form kdr - Thank You Letter kdr Prescriptions: - Eliquis 2.5 mg Oral tablet - take 1 tablet by ORAL route 2 times per day; 20 tablet; Refills: 0, Product kdr Selection Permitted Signatures: Dispatcher MedHoPresbyterian Kaseman HospitalRey Burton MD MD kdr Arpit Du, FREIGHT COORDINATOR-C FREIGHT COORDINATOR-Cla1 Nia Pelaez, RN RN ca1 Chaya Faye RN RN ll1
[2020-12-02] MEDS ORDERED: APIXABAN 5 MG TABLET ONE (19:19)
[2020-12-02 19:22] VITALS: TEMP 97.7
[2020-12-02 19:28] VITALS: BP 135/74; O2SAT 99
--- NOTE | 2020-12-03 08:04 | EKG ---
Test Date: 2020-12-02 Test Time: 16:10:29 Mold Preparer: SRIDHAR MEASUREMENT RESULTS: Intervals: Rate: 91 DE: QRSD: 80 QT: 372 QTc: 457 [place]: P: DE: QRS: -3 T: 27 INTERPRETIVE STATEMENTS: Atrial flutter with variable AV block Low voltage QRS Cannot rule out Inferior infarct, age undetermined Abnormal ECG No previous ECG available for comparison Electronically Signed On 12-03-20 08:03:35 CDT by Parveen Rogers
== END 2020-12-02 19:11 | disposition home or self-care (01) ==
LOC: ER 15:42
DX: I48.92 Unspecified atrial flutter (principal); I10 Essential (primary) hypertension; E11.9 Type 2 diabetes mellitus without complications
CPT/HCPCS: 36415; 71045; 80048; 80076; 83735; 83880; 84484; 85025; 85610; 93005; 99285

== ENCOUNTER 2022-05-04 18:29 | Inpatient (IN) | payer BC, OTHER ==
--- OUTSIDE RECORDS SUMMARY | 2022-05-04 19:12 | XMS REPORT | Continuity of Care Document ---
:1950 Author Organization [facility] t Address [address] [place] [address] Care Team Providers Name Role Phone Asked, No Pcp Primary Care Physician Unavailable JEANE HUANG Attending Clinician Unavailable Franko Crowley Attending Clinician Unavailable [id number] Attending Clinician Unavailable NAVEED AFLARO Attending Clinician Unavailable AVERY KHAN Attending Clinician Unavailable JEANE HUANG Attending Clinician Unavailable LORI VIVEROS Attending Clinician Unavailable Naveed Alfaro MD Attending Clinician Jeane Huang MD Attending Clinician [phone] NAZIA GALVAN Attending Clinician Unavailable JEANE HUANG Admitting Clinician Unavailable Sagar Cavanaugh Admitting Clinician Unavailable NAZAI GALVAN Admitting Clinician Unavailable Payers Payer Name Policy Type Policy Number Effective Date Expiration Date S soraida MEDICARE PART A [id number] 2018 00:00:00 CIGNA HMO/POS/OPEN [id number] 2016 ACCESS 00:00:00 BCBS 2 [id number] 2020 00:00:00 OUT OF STATE [facility] [id number] O - [facility] OPEN ACCESS PLUS - [id number] 2016 CIGNA 00:00:00 CVCP-CIGNA O [id number] MEDICARE PART A [id number] \T\ B - MEDICARE Problems Condition Condition Condition Status Onset Resolution Last Treating Co mments Source Name Details Category Date Date Treatment Clinician Date 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 6-17 Seybold 00:00: - 00 Externa l Stage 3a Stage 3a Disease Active Kelse y chronic chronic 6-17 Seybold kidney kidney 00:00: - disease disease 00 Externa l Bradycardi Bradycardi Disease Active Coy miles a a 6-17 Seybold 00:00: - 00 Externa l 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 6-17 Se ybold ventricula ventricula 00:00: r r 00 contractio contractio n) n) 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 6-17 Se ybold ventricula ventricula 00:00: - r r 00 Externa contractio contractio l n) n) Hydronephr Hydronephr Disease Active [facility] osis with osis with 3-13 Luke s urinary urinary 00:00: Medical obstructio obstructio 00 Ce nter n due to n due to renal renal calculus calculus Presence Presence Disease Active [facility] [facility] cornea of cornea 5-11 [place] transplant transplant 00:00: of 00 Medicin e CRF CRF Disease Active Mirtha (chronic (chronic Seybol d renal renal - failure), failure), Exte rna stage 3 stage 3 l (moderate) (moderate) 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 Natural father Hypertension [facility] Natural sister Cancer [facility] Natural sister Hypertension [facility] Social History Social Habit Start Date Stop Date Quantity Comments Source History of Cigarette Smoker [facility] [place] self tobacco use of Medicine History [facility] Alcohol Std Medical Cente r Drinks History [facility] Alcohol Binge Medical [address] Alcohol intake 2019-12-25 2019-12-25 [facility] 00:[facility]:00 alcohol (finding) Medical Center History [facility] 2019-08-09 2019-08-[address] [facility] Alcohol Frequency 00:00:00 00:00:00 Medical Center History [facility] 2019-08-08 2019-08-[address] [facility] Alcohol Comment 00:00:00 00:00:00 2-3 days Medical C enter Tobacco use and 2018-10-05 2018-10-[address] [facility] exposure 00:00:00 00:00:00 Medical Center Sex Assigned At [address] [facility] 00:[facility]00 00[facility] Center Smoking Status Start Date Stop Date Source Tobacco smoking [facility] consumption unknown Never smoked tobacco Mirtha Bk old - External Former smoker 2020-03-02 00:00:00 2020-03-02 [facility] Colle ge of 00:00:00 Medicine Medications Ordered Filled Start Stop Current Ordering Indication Dosage Frequency Signature Comments Components Source Medication Medication Date Date Medication? Clinician (SIG) Name Name Apixaban 2021-05- No 2.5mg Take 2.5 Omer sey 2.5 MG oral 2-07 12-07 mg by Seybol d Tablet 08:25: 00:00 mouth 2 - 32 :00 times Externa daily l Cholecalcif 2021-05 Yes 1{tbl} Take 1 Paras gomez daniel 2-07 tablet by Kely (D3-1000) 08:04: mouth - 25 MCG 24 daily Externa (1000 UT) l oral Capsule [place]-3 2021-05 Yes 1{tbl} Take 1 Mirtha Fatty Acids 2-07 tablet by Solomon delgadillo (Fish Oil) 08:04: mouth - 1000 MG 24 Externa oral l Capsule Latanoprost 2021-05 Yes 1[drp] 1 drop Paras gomez 0.005 % 2-07 nightly Seybold ophthalmic 08:04: - Solution 24 Externa l Ascorbic 2021-05 Yes 1{tbl} Take 1 Omerse y Acid 2-07 tablet by Kely (Vitamin C) 08:04: mouth - 100 MG oral 24 Externa Chewable l Tablet FLUOROMETHO 2021-05 Yes 1[drp] 1 drop 2 Mirtha LONE, 2-07 times Seybold OPHTH, 0.25 08:04: daily - % 24 Externa ophthalmic l Suspension Aspirin 81 2021-05 Yes 81mg Take 81 mg K elsey MG oral 2-07 by mouth Seybold Tablet 08:04: daily - Delayed 24 Externa Response l Gatifloxaci 2021-05 Yes 1[drp] Apply 1 K elsey n (ZYMAXID) 2-07 drop to Seybo ld 0.5 % 08:04: eye - ophthalmic 24 Externa Solution l Losartan 2021-05 Yes [id number] 1{tbl} Take 1 K elsey Potassium-H 2-07 tablet by Solomon delgadillo CTZ 100-25 00:00: mouth - MG oral 00 daily Externa Tablet l Metformin 2021-05 Yes [id number] 500mg Take 1 K elsey HCl ER 500 2-07 tablet Seybold MG oral 00:00: (500 mg - TABLET SR 00 total) by Exter na 24 HR mouth 4 l times daily Apixaban 2021-05 Yes [id number] 2.5mg Take 1 Ke lsey (Eliquis) 2-07 tablet Seybold 2.5 MG oral 00:00: (2.5 mg - Tablet 00 total) by Externa mouth 2 l times daily Metoprolol 2021-05 Yes [id number] 25mg Take 0.5 Mirtha Tartrate 50 2-07 tablets Seybo ld MG oral 00:00: (25 mg - Tablet 00 total) by Externa mouth l daily Minoxidil 2021-05 Yes [id number] 10mg Take 1 Ke lsey 10 MG oral 2-07 tablet (10 Sey bold Tablet 00:00: mg total) - 00 by mouth Externa daily l Losartan 2021-05- No [id number] 1{tbl} TAKE 1 Mirtha Potassium-H 2-05 12-07 TABLET BY Se ybskyalr CTZ 100-25 00:00: 00:00 MOUTH - MG oral 00 :00 DAILY Externa Tablet l Minoxidil 2020-05- No TAKE 1 Kelse y 10 MG oral 2-16 12-07 TABLET(10 Sey bold Tablet 00:00: 00:00 MG) BY - 00 :00 MOUTH Externa DAILY l Cholecalcif 2020-05 Yes 1{tbl} Take 1 Ke lsey daniel 0-22 tablet by Seybold (D3-1000) 09:51: mouth 25 MCG 47 daily (1000 UT) oral Capsule [place]-3 2020-05 Yes 1{tbl} Take 1 Mirtha Fatty Acids 0-22 tablet by Sey bold (Fish Oil) 09:51: mouth 1000 MG 47 oral Capsule Latanoprost 2020-05 Yes 1[drp] 1 drop Ke lsey 0.005 % 0-22 nightly Seybold ophthalmic 09:51: Solution 47 Ascorbic 2020-05 Yes 1{tbl} Take 1 Kelse y Acid 0-22 tablet by Seybold (Vitamin C) 09:51: mouth 100 MG oral 47 Chewable Tablet FLUOROMETHO 2020-05 Yes 1[drp] 1 drop 2 Mirtha LONE, 0-22 times Seybold OPHTH, 0.25 09:51: daily % 47 ophthalmic Suspension Aspirin 81 2020-05 Yes 81mg Take 81 mg K elsey MG oral 0-22 by mouth Seybold Tablet 09:51: daily Delayed 47 Response Gatifloxaci 2020-05 Yes 1[drp] Apply 1 K elsey n (ZYMAXID) 0-22 drop to Seybo ld 0.5 % 09:51: eye ophthalmic 47 Solution Apixaban 2020-05 Yes 2.5mg Take 2.5 Kenzie ey (Eliquis) 0-22 mg by Seybold 2.5 MG oral 09:51: mouth 2 Tablet 47 times daily Losartan 2020-05 Yes [id number] 1{tbl} Take 1 K elsey Potassium-H 0-22 tablet by Sey bold CTZ 00:00: mouth 100-12.5 MG 00 daily oral Tablet Metformin 2020-05 Yes [id number] 500mg Take 1 K elsey HCl ER 500 0-22 tablet Seybold MG oral 00:00: (500 mg TABLET SR 00 total) by 24 HR mouth 4 times daily Losartan 2020-05- No [id number] 1{tbl} Take 1 Mirtha Potassium-H 0-22 12-07 tablet by Se ybold CTZ 00:00: 00:00 mouth - 100-12.5 MG 00 :00 daily Externa oral Tablet l Metformin 2020-05- No [id number] 500mg Take 1 Mirtha HCl ER 500 0-22 12-07 tablet Seybol d MG oral 00:00: 00:00 (500 mg - TABLET SR 00 :00 total) by Chaitanya amin 24 HR mouth 4 l times daily Metformin 2020-05- No Mirtha HCl ER 500 0-09 10-22 Seybold MG oral 00:00: 00:00 TABLET SR 00 :00 24 HR Losartan 2020- No [id number] 1{tbl} Take 1 Mirtha Potassium-H 7-23 10-22 tablet by Se ybold CTZ 00:00: 00:00 mouth 100-12.5 MG 00 :00 daily oral Tablet Metoprolol Yes 25mg Take 25 mg K elsey Tartrate 50 7-09 by mouth Seyb old MG oral 00:00: daily Tablet 00 Metoprolol 2021- No 25mg Take 25 mg Mirtha Tartrate 50 7 12-07 by mouth Sey bold MG oral 00:00: 00:00 daily - Tablet 00 :00 Externa l Eliquis 2.5 Yes 2.5mg Take 2.5 K elsey MG oral 7-08 mg by Seybold Tablet 00:00: mouth 2 00 times daily Eliquis 2.5 0 2021- No 2.5mg Take 2.5 Mirtha MG oral 7-08 12-07 mg by Seybold Tablet 00:00: 00:00 mouth 2 - 00 :00 times Externa daily l Fluorometho Yes PLACE 1 Omer sey lone 0.1 % 6-08 DROP INTO Seyb old ophthalmic 00:00: THE RIGHT Suspension 00 EYE DAILY. Fluorometho Yes PLACE 1 Omer sey lone 0.1 % 6-08 DROP INTO Seyb old ophthalmic 00:00: THE RIGHT - Suspension 00 EYE DAILY. Ext priscilla l Minoxidil Yes 10mg Take 1 Mirtha 10 MG oral 5-28 tablet (10 Sey bold Tablet 00:00: mg total) 00 by mouth daily metFORMIN 2019-0 Yes 1000mg Take 1,[address] [facility] [facility] (GLUCOPHAGE 7-29 mg by [facility] ) 1000 MG 11:19: mouth 2 Medic al tablet 10 (two) Center times daily with breakfast and dinner. minoxidil 2019-0 Yes 10mg QD Take [address] (LONITEN) 7- by mouth Lukes 10 MG 11:19: daily. Medical tablet 10 [place] latanoprost 2019-0 Yes 1[drp] QD Place [address] (XALATAN) 7- drop into [facility]ukes 0.005 % 11:19: both eyes Medic al ophthalmic 10 nightly . Cent er solution aspirin 81 2019-0 Yes 81mg QD Take [address] MG EC 7- by mouth Lukes tablet 11:19: daily. Medical 10 Center AMLODIPINE 2019-0 Yes 10mg QD [address] BESYLATE, 7- Miscellane Luke s BULK, MISC 11:19: ous route Me dical 10 nightly. Center hydroCHLORO 2019-0 Yes 12.5mg QD Take 12.[address] thiazide 7-29 mg by [employer] (HYDRODIURI 11:19: mouth Medic al L) 12.5 MG 10 daily. Center tablet fluorometho 2020-0 Yes 1[drp] QD Place [address] lone (FML) 7-29 drop into Luke s 0.1 % 11:19: the right Medical ophthalmic [address] suspension cholecalcif 2020-0 Yes Take by [facility] daniel, 12-24 mouth. [employer] vitamin D3, 11:19: Medica l (VITAMIN D3 10 Center ORAL) cyanocobala 2020-0 Yes Take by [facility] St min, 12-24 mouth. [facility]ukes vitamin 11:19: Medical B-12, 10 Center (VITAMIN B-12 ORAL) omega-3 2020-0 Yes 1{tbl} Take [address] [facility] [address] fatty acids -29 tablet by Monika es (FISH OIL 11:19: mouth. Medica l CONCENTRATE 10 Center ORAL) ascorbic 2020-0 Yes 1{tbl} Take 1 [facility] t acid - tablet by [employer] (VITAMIN C 11:19: mouth. Medic al ORAL) 10 Center gatifloxaci 2020-0 Yes 1[drp] Apply [address] n 0.5 % - drop to [facility]ukes Drop 11:19: eye(s) Medical 10 Administer Center in right eye . UNKNOWN 2020-0 Yes [place] XL . [facility] 12-24 [facility] 11:19: Medical 10 Center diflupredna 2020-0 Yes 1[drp] Place 1 [facility] [facility] 7-27 Drop into [facility] (DUREZOL) 00:00: the right of 0.05 % 00 eye four Medicin ophthalmic times e emulsion daily. diflupredna 2020-0 Yes 1[drp] Place 1 [facility] [place] te 7-27 Drop into [facility] (DUREZOL) 00:00: the right of 0.05 % 00 eye four Medicin ophthalmic times e emulsion daily. diflupredna 2020-0 Yes 1[drp] Place 1 [facility] [place] te 7-27 Drop into [facility] (DUREZOL) 00:00: the right of 0.05 % 00 eye four Medicin ophthalmic times e emulsion daily. diflupredna 2020-0 Yes 1[drp] Place 1 [facility] [place] te 7-27 Drop into [facility] (DUREZOL) 00:00: the right of 0.05 % 00 eye four Medicin ophthalmic times e emulsion daily. diflupredna 2020-0 Yes 1[drp] Place 1 [facility] [place] te 7-27 Drop into [facility] (DUREZOL) 00:00: the right of 0.05 % 00 eye four Medicin ophthalmic times e emulsion daily. diflupredna 2020-0 Yes 1[drp] Place 1 [facility] [place] te 7-27 Drop into [facility] (DUREZOL) 00:00: the right of 0.05 % 00 eye four Medicin ophthalmic times e emulsion daily. diflupredna 2020-0 Yes 1[drp] Place 1 [facility] [place] te 7-27 Drop into [facility] (DUREZOL) 00:00: the right of 0.05 % 00 eye four Medicin ophthalmic times e emulsion daily. diflupredna 2020-0 Yes 1[drp] Place 1 B [place] te 7-27 Drop into [place] (DUREZOL) 00:00: the right of 0.05 % 00 eye four Medicin ophthalmic times e emulsion daily. moxifloxaci 2020-0 Yes 400mg Take 1 Tab Dom n (AVELOX) 7-24 by mouth Colle ge 400 MG 00:00: daily. of tablet 00 Medicin e atropine 1 2020-0 Yes 1[drp] Apply 1 Ba ylor % 7-24 Drop to [place] ophthalmic 00:00: eye two of solution 00 times Medicin daily. e Apply to eye(s) as directed. moxifloxaci 2020-0 Yes 400mg Take 1 Tab [facility] n (AVELOX) 7-24 by mouth Colle ge 400 MG 00:00: daily. of tablet 00 Medicin e atropine 1 2020-0 Yes 1[drp] Apply 1 Ba ylor % 7-24 Drop to [place] ophthalmic 00:00: eye two of solution 00 times Medicin daily. e Apply to eye(s) as directed. moxifloxaci 2020-0 Yes 400mg Take 1 Tab Dom n (AVELOX) 7-24 by mouth Colle ge 400 MG 00:00: daily. of tablet 00 Medicin e atropine 1 2020-0 Yes 1[drp] Apply 1 Ba ylor % 7-24 Drop to [place] ophthalmic 00:00: eye two of solution 00 times Medicin daily. e Apply to eye(s) as directed. moxifloxaci 2020-0 Yes 400mg Take 1 Tab Dom n (AVELOX) 7-24 by mouth Colle ge 400 MG 00:00: daily. of tablet 00 Medicin e atropine 1 2020-0 Yes 1[drp] Apply 1 Ba ylor % 7-24 Drop to [place] ophthalmic 00:00: eye two of solution 00 times Medicin daily. e Apply to eye(s) as directed. moxifloxaci 2020-0 Yes 400mg Take 1 Tab [facility] n (AVELOX) 7-24 by mouth Colle ge 400 MG 00:00: daily. of tablet 00 Medicin e atropine 1 2020-0 Yes 1[drp] Apply 1 Ba ylor % 7-24 Drop to [place] ophthalmic 00:00: eye two of solution 00 times Medicin daily. e Apply to eye(s) as directed. moxifloxaci 2020-0 Yes 400mg Take 1 Tab Dom n (AVELOX) 7-24 by mouth Colle ge 400 MG 00:00: daily. of tablet 00 Medicin e atropine 1 2020-0 Yes 1[drp] Apply 1 Ba ylor % 7-24 Drop to [place] ophthalmic 00:00: eye two of solution 00 times Medicin daily. e Apply to eye(s) as directed. moxifloxaci 2020-0 Yes 400mg Take 1 Tab [facility] n (AVELOX) 7-24 by mouth Colle ge 400 MG 00:00: daily. of tablet 00 Medicin e atropine 1 2020-0 Yes 1[drp] Apply 1 Ba ylor % 7-24 Drop to [place] ophthalmic 00:00: eye two of solution 00 times Medicin daily. e Apply to eye(s) as directed. moxifloxaci 2020-0 Yes 400mg Take 1 Tab Dom n (AVELOX) 7-24 by mouth Colle ge 400 MG 00:00: daily. of tablet 00 Medicin e atropine 1 2020-0 Yes 1[drp] Apply 1 Ba ylor % 7-24 Drop to [place] ophthalmic 00:00: eye two of solution 00 times Medicin daily. e Apply to eye(s) as directed. moxifloxaci 2020-0 Yes 400mg Take 1 Tab [facility] n (AVELOX) 7-24 by mouth Colle ge 400 MG 00:00: daily. of tablet 00 Medicin e atropine 1 2020-0 Yes 1[drp] Apply 1 Ba ylor % 7-24 Drop to [place] ophthalmic 00:00: eye two of solution 00 times Medicin daily. e Apply to eye(s) as directed. moxifloxaci 2020-0 Yes 400mg Take 1 Tab [facility] n (AVELOX) 7-24 by mouth Colle ge 400 MG 00:00: daily. of tablet 00 Medicin e atropine 1 2020-0 Yes 1[drp] Apply 1 Ba ylor % 7-24 Drop to [place] ophthalmic 00:00: eye two of solution 00 times Medicin daily. e Apply to eye(s) as directed. fluorometho 2019-0 Yes 1[drp] Place 1 [place] (FML) 7-23 Drop into [place] 0.1 % 00:00: the right of ophthalmic 00 eye daily. Med icin suspension e fluorometho 2019-0 Yes 1[drp] Place 1 [place] (FML) 7-23 Drop into [place] 0.1 % 00:00: the right of ophthalmic 00 eye daily. Med icin suspension e fluorometho 2019-0 Yes 1[drp] Place 1 [place] (FML) 7-23 Drop into [place] 0.1 % 00:00: the right of ophthalmic 00 eye daily. Med icin suspension e fluorometho 2019-0 Yes 1[drp] Place 1 [place] (FML) 7-23 Drop into [place] 0.1 % 00:00: the right of ophthalmic 00 eye daily. Med icin suspension e fluorometho 2019-0 Yes 1[drp] Place 1 [place] (FML) 7-23 Drop into [place] 0.1 % 00:00: the right of ophthalmic 00 eye daily. Med icin suspension e fluorometho 2019-0 Yes 1[drp] Place 1 [place] (FML) 7-23 Drop into [place] 0.1 % 00:00: the right of ophthalmic 00 eye daily. Med icin suspension e fluorometho 2019-0 Yes 1[drp] Place 1 [place] (FML) 7-23 Drop into [place] 0.1 % 00:00: the right of ophthalmic 00 eye daily. Med icin suspension e fluorometho 2019-0 Yes 1[drp] Place 1 [place] (FML) 7-23 Drop into [place] 0.1 % 00:00: the right of ophthalmic 00 eye daily. Med icin suspension e fluorometho 2019-0 Yes 1[drp] Place 1 [place] (FML) 7-23 Drop into [place] 0.1 % 00:00: the right of ophthalmic 00 eye daily. Med icin suspension e fluorometho 2018- Yes 1[drp] Place 1 [place] (FML) 7-23 Drop into [place] 0.1 % 00:00: the right of ophthalmic 00 eye daily. Med icin suspension e fluorometho 2019-0 Yes 1[drp] Place 1 [place] (FML) 7-23 Drop into [place] 0.1 % 00:00: the right of ophthalmic 00 eye daily. Med icin suspension e fluorometho 2018- Yes 1[drp] Place 1 [place] (FML) 7-23 Drop into [place] 0.1 % 00:00: the right of ophthalmic 00 eye daily. Med icin suspension e diflupredna 2018- Yes [id number] 1[drp] Place 1 Dom te 5-11 Drop into [facility] (DUREZOL) 00:00: the right of 0.05 % 00 eye four Medicin ophthalmic times e emulsion daily. VALTREX 1 g Yes [id number] 1000mg Take 1 Tab Dom tablet 5-11 by mouth 3 College 00:00: times of 00 daily. Medicin e COMBIGAN Yes [id number] 1[drp] Place 1 [facility] [place] 0.2-0.5 % 5-11 Drop into [facility] ge ophthalmic 00:00: both eyes of solution 00 every 12 Medicin hours. e diflupredna 2018- Yes [id number] 1[drp] Place 1 [facility] te 5-11 Drop into College (DUREZOL) 00:00: the right of 0.05 % 00 eye four Medicin ophthalmic times e emulsion daily. VALTREX 1 g Yes [id number] 1000mg Take 1 Tab Dom tablet 5-11 by mouth 3 College 00:00: times of 00 daily. Medicin e diflupredna Yes [id number] 1[drp] Place 1 Dom te 5-11 Drop into [facility] (DUREZOL) 00:00: the right of 0.05 % 00 eye four Medicin ophthalmic times e emulsion daily. VALTREX 1 g Yes [id number] 1000mg Take 1 Tab Dom tablet 5-11 by mouth 3 College 00:00: times of 00 daily. Medicin e COMBIGAN 2018- Yes [id number] 1[drp] Place 1 [facility] [place] 0.2-0.5 % 5-11 Drop into Colle ge ophthalmic 00:00: both eyes of solution 00 every 12 Medicin hours. e COMBIGAN 2018- Yes [id number] 1[drp] Place 1 [place] 0.2-0.5 % 5-11 Drop into Colle ge ophthalmic 00:00: both eyes of solution 00 every 12 Medicin hours. e diflupredna 2018- Yes [id number] 1[drp] Place 1 Dom te 5-11 Drop into [facility] (DUREZOL) 00:00: the right of 0.05 % 00 eye four Medicin ophthalmic times e emulsion daily. VALTREX 1 g Yes [id number] 1000mg Take 1 Tab [facility] tablet 5-11 by mouth 3 [place] 00:00: times of 00 daily. Medicin e COMBIGAN Yes [id number] 1[drp] Place 1 [place] 0.2-0.5 % 5-11 Drop into Colle ge ophthalmic 00:00: both eyes of solution 00 every 12 Medicin hours. e diflupredna 2018- Yes [id number] 1[drp] Place 1 Dom te 5-11 Drop into [facility] (DUREZOL) 00:00: the right of 0.05 % 00 eye four Medicin ophthalmic times e emulsion daily. VALTREX 1 g Yes [id number] 1000mg Take 1 Tab [facility] tablet 5-11 by mouth 3 College 00:00: times of 00 daily. Medicin e COMBIGAN 2018- Yes [id number] 1[drp] Place 1 [place] 0.2-0.5 % 5-11 Drop into Colle ge ophthalmic 00:00: both eyes of solution 00 every 12 Medicin hours. e diflupredna 2019- Yes [id number] 1[drp] Place 1 [facility] te 5-11 Drop into [facility] (DUREZOL) 00:00: the right of 0.05 % 00 eye four Medicin ophthalmic times e emulsion daily. VALTREX 1 g 2019- Yes [id number] 1000mg Take 1 Tab Dom tablet 5-11 by mouth 3 College 00:00: times of 00 daily. Medicin e COMBIGAN 2018- Yes [id number] 1[drp] Place 1 [place] 0.2-0.5 % 5-11 Drop into Colle ge ophthalmic 00:00: both eyes of solution 00 every 12 Medicin hours. e diflupredna 2019- Yes [id number] 1[drp] Place 1 Dom te 5-11 Drop into [facility] (DUREZOL) 00:00: the right of 0.05 % 00 eye four Medicin ophthalmic times e emulsion daily. VALTREX 1 g Yes [id number] 1000mg Take 1 Tab [facility] tablet 5-11 by mouth 3 [place] 00:00: times of 00 daily. Medicin e COMBIGAN 2018- Yes [id number] 1[drp] Place 1 [facility] [place] 0.2-0.5 % 5-11 Drop into Colle ge ophthalmic 00:00: both eyes of solution 00 every 12 Medicin hours. e diflupredna 2018- Yes [id number] 1[drp] Place 1 Dom te 5-11 Drop into [facility] (DUREZOL) 00:00: the right of 0.05 % 00 eye four Medicin ophthalmic times e emulsion daily. VALTREX 1 g Yes [id number] 1000mg Take 1 Tab [facility] tablet 5-11 by mouth 3 [place] 00:00: times of 00 daily. Medicin e COMBIGAN 2018- Yes [id number] 1[drp] Place 1 [place] 0.2-0.5 % 5-11 Drop into Colle ge ophthalmic 00:00: both eyes of solution 00 every 12 Medicin hours. e diflupredna 2019- Yes [id number] 1[drp] Place 1 [facility] te 5-11 Drop into College (DUREZOL) 00:00: the right of 0.05 % 00 eye four Medicin ophthalmic times e emulsion daily. VALTREX 1 g Yes [id number] 1000mg Take 1 Tab [facility] tablet 5-11 by mouth 3 [place] 00:00: times of 00 daily. Medicin e COMBIGAN 2018- Yes [id number] 1[drp] Place 1 [place] 0.2-0.5 % 5-11 Drop into Colle ge ophthalmic 00:00: both eyes of solution 00 every 12 Medicin hours. e diflupredna Yes [id number] 1[drp] Place 1 Dom te 5-11 Drop into [facility] (DUREZOL) 00:00: the right of 0.05 % 00 eye four Medicin ophthalmic times e emulsion daily. VALTREX 1 g Yes [id number] 1000mg Take 1 Tab Dom tablet 5-11 by mouth 3 [place] 00:00: times of 00 daily. Medicin e COMBIGAN Yes [id number] 1[drp] Place 1 [place] 0.2-0.5 % 5-11 Drop into Colle ge ophthalmic 00:00: both eyes of solution 00 every 12 Medicin hours. e diflupredna Yes [id number] 1[drp] Place 1 [facility] te 5-11 Drop into [place] (DUREZOL) 00:00: the right of 0.05 % 00 eye four Medicin ophthalmic times e emulsion daily. VALTREX 1 g Yes [id number] 1000mg Take 1 Tab [facility] tablet 5-11 by mouth 3 [place] 00:00: times of 00 daily. Medicin e COMBIGAN Yes [id number] 1[drp] Place 1 [place] 0.2-0.5 % 5-11 Drop into Colle ge ophthalmic 00:00: both eyes of solution 00 every 12 Medicin hours. e diflupredna Yes [id number] 1[drp] Place 1 [facility] te 5-11 Drop into [place] (DUREZOL) 00:00: the right of 0.05 % 00 eye four Medicin ophthalmic times e emulsion daily. VALTREX 1 g Yes [id number] 1000mg Take 1 Tab [facility] tablet 5-11 by mouth 3 [place] 00:00: times of 00 daily. Medicin e COMBIGAN Yes [id number] 1[drp] Place 1 [place] 0.2-0.5 % 5-11 Drop into Colle ge ophthalmic 00:00: both eyes of solution 00 every 12 Medicin hours. e valacyclovi Yes TK 1 T PO B [facility] r (VALTREX) 7-26 QD College 500 MG 00:00: of tablet 00 Medicin e valacyclovi Yes TK 1 T PO B [facility] r (VALTREX) 12-21 QD College 500 MG 00:00: of tablet 00 Medicin e valacyclovi Yes TK 1 T PO B [facility] r (VALTREX) 12-21 QD [facility] 500 MG 00:00: of tablet 00 Medicin e valacyclovi Yes TK 1 T [facility] (VALTREX) 12-21 QD [facility] 500 MG 00:00: of tablet Medicin e valacyclovi Yes TK 1 T [facility] (VALTREX) 12-21 QD [facility] 500 MG 00:00: of tablet Medicin e valacyclovi Yes TK 1 T [facility] (VALTREX) 12-21 QD [facility] 500 MG 00:00: of tablet Medicin e valacyclovi Yes TK 1 T [facility] (VALTREX) 12-21 QD [facility] 500 MG 00:00: of tablet Medicin e valacyclovi Yes TK 1 T PO [facility] (VALTREX) 12-21 QD [facility] 500 MG 00:00: of tablet Medicin e valacyclovi Yes TK 1 T PO [facility] (VALTREX) 12-21 QD [facility] 500 MG 00:00: of tablet Medicin e valacyclovi Yes TK 1 T PO [facility] (VALTREX) 12-21 QD [facility] 500 MG 00:00: of tablet Medicin e valacyclovi Yes TK 1 T PO [facility] (VALTREX) 12-21 QD [facility] 500 MG 00:00: of tablet Medicin e valacyclovi Yes TK 1 T PO [facility] (VALTREX) 12-21 QD [facility] 500 MG 00:00: of tablet 00 Medicin e XALATAN Yes INSTILL 1 [facility] 0.005 % 6-28 GTT IN [facility] ophthal[facility] 00:00: BOTH EYES of solution 00 HS Medicin e XALATAN 2016- Yes INSTILL 1 [facility] 0.005 % 6-28 [facility] 00:00: BOTH EYES of solution 00 HS Medicin e XALATAN Yes INSTILL 1 [facility] 0.[facility] % 6-28 G[facility] 00:00: BOTH EYES of solution 00 HS Medicin e XALATAN 2016-0 Yes INSTILL 1 [facility] 0.005 % 6-28 GTT IN [place] [facility] 00:00: BOTH EYES of solution 00 HS Medicin e XALATAN 2017-0 Yes INSTILL 1 [facility] 0.[facility] % 6-28 GTT IN [place] [facility] 00:00: BOTH EYES of solution 00 HS Medicin e XALATAN 2016-0 Yes INSTILL 1 [facility] 0.005 % 6-28 GTT IN [place] [facility] 00:00: BOTH EYES of solution 00 HS Medicin e XALATAN 2016-0 Yes INSTILL 1 [facility] 0.005 % 6-28 GTT IN [place] [facility] 00:00: BOTH EYES of solution 00 HS Medicin e XALATAN 2016-0 Yes INSTILL 1 [facility] 0.[facility] % 6-28 GTT IN [place] [facility] 00:00: BOTH EYES of solution 00 HS Medicin e XALATAN 2016-0 Yes INSTILL 1 [facility] 0.[facility] % 6-28 GTT IN [place] [facility] 00:00: BOTH EYES of solution 00 HS Medicin e XALATAN 2016-0 Yes INSTILL 1 [facility] 0.005 % 6-28 GTT IN [place] [facility] 00:00: BOTH EYES of solution 00 HS Medicin e XALATAN 2016-0 Yes INSTILL 1 [facility] 0.[facility] % 6-28 GTT IN [place] [facility] 00:00: BOTH EYES of solution 00 HS Medicin e XALATAN 2016-0 Yes INSTILL 1 [facility] 0.[facility] % 6-28 GTT IN [place] [facility] 00:00: BOTH EYES of solution 00 HS Medicin e minoxidil Yes TK 1 T PO [facility] (LONITEN) 11-21 QD [place] 10 MG 00:00: of tablet Medicin e minoxidil Yes TK 1 T PO [facility] (LONITEN) 11-21 QD [place] 10 MG 00:00: of tablet Medicin e minoxidil Yes TK 1 T PO [facility] (LONITEN) 11-21 QD [place] 10 MG 00:00: of tablet Medicin e minoxidil Yes TK 1 T PO [facility] (LONITEN) 11-21 QD [place] 10 MG 00:00: of tablet Medicin e minoxidil Yes TK 1 T PO [facility] (LONITEN) 11-21 QD [facility] 10 MG 00:00: of tablet 00 Medicin e minoxidil Yes TK 1 T PO [facility] (LONITEN) 6 QD [facility] 10 MG 00:00: of tablet 00 Medicin e minoxidil Yes TK 1 T PO [facility] (LONITEN) 11-21 QD [facility] 10 MG 00:00: of tablet 00 Medicin e minoxidil Yes TK 1 T PO [facility] (LONITEN) 11-21 QD [facility] 10 MG 00:00: of tablet 00 Medicin e minoxidil Yes TK 1 T PO [facility] (LONITEN) 11-21 QD [facility] 10 MG 00:00: of tablet Medicin e minoxidil Yes TK 1 T PO [facility] (LONITEN) 11-21 QD [facility] 10 MG 00:00: of tablet 00 Medicin e minoxidil Yes TK 1 T PO [facility] (LONITEN) 11-21 QD [facility] 10 MG 00:00: of tablet Medicin e minoxidil Yes TK 1 T PO [facility] (LONITEN) 11-21 QD [facility] 10 MG 00:00: of tablet 00 Medicin e amlodipine Yes [facility] (NORVASC) 6-16 [facility] 10 MG 00:00: of tablet 00 Medicin e amlodipine Yes [facility] (NORVAS) 6-16 [facility] 10 MG 00:00: of tablet 00 Medicin e amlodipine Yes [facility] (LENORAVASC) 6-16 [facility] 10 MG 00:00: of tablet 00 Medicin e amlodipine Yes [facility] (NORVASC) 6-16 [facility] 10 MG 00:00: of tablet 00 Medicin e amlodipine Yes [facility] (NORVASC) 6-16 [facility] 10 MG 00:00: of tablet 00 Medicin e amlodipine Yes [facility] (NORVASC) 6-16 [facility] 10 MG 00:00: of tablet 00 Medicin e amlodipine Yes [facility] (NORVASC) 6-16 [facility] 10 MG 00:00: of tablet 00 Medicin e amlodipine Yes [facility] (NORVASC) 6-16 [facility] 10 MG 00:00: of tablet 00 Medicin [address] Yes [facility] 6-16 [place] 10 MG 00:00: of tablet 00 Medicin e amlodipine [address] [facility] 6-16 [place] 10 MG 00:00: of tablet 00 Medicin e amlodipine [address] [facility] 6-16 [place] 10 MG 00:00: of tablet 00 Medicin e amlodipine [address] [facility] 6-16 [place] 10 MG 00:00: of tablet 00 Medicin e INVOKANA 20170 Yes TK 1 T PO [facility] 100 MG TABS 6-03 QD [facility] 00:00: of 00 Medicin e INVOKANA 2017-0 Yes TK 1 T PO [facility] 100 MG TABS 6-03 QD [facility] 00:00: of 00 Medicin e INVOKANA 2017-0 Yes TK 1 T PO [facility] 100 MG TABS 6-03 QD [facility] 00:00: of 00 Medicin e INVOKANA 2017-0 Yes TK 1 T PO [facility] 100 MG TABS 6-03 QD [facility] 00:00: of 00 Medicin e INVOKANA 2017-0 Yes TK 1 T PO [facility] 100 MG TABS 6-03 QD [facility] 00:00: of 00 Medicin e INVOKANA 2017-0 Yes TK 1 T PO [facility] 100 MG TABS 6-03 QD [facility] 00:00: of 00 Medicin e INVOKANA 2017-0 Yes TK 1 T PO [facility] 100 MG TABS 6-03 QD [facility] 00:00: of 00 Medicin e INVOKANA 2017-0 Yes TK 1 T PO [facility] 100 MG TABS 6-03 QD [facility] 00:00: of 00 Medicin e INVOKANA 2017-0 Yes TK 1 T PO [facility] 100 MG TABS 6-03 QD [facility] 00:00: of 00 Medicin e INVOKANA 2017-0 Yes TK 1 T PO [facility] 100 MG TABS 6-03 QD [facility] 00:00: of 00 Medicin e INVOKANA 2017-0 Yes TK 1 T PO [facility] 100 MG TABS 6-03 QD [facility] 00:00: of 00 Medicin e INVOKANA 2017-0 Yes TK 1 T PO [facility] 100 MG TABS 6-03 QD [facility] 00:00: of 00 Medicin e losartan-hy 2017-0 Yes TK ONE T [facility] drochloroth 5-27 PO D [facility] iazide 00:00: of (HYZAAR) 00 Medicin 100-25 MG e per tablet losartan-hy Yes TK ONE [facility] drochloroth 5-27 PO D [facility] iazide 00:00: of (HYZAAR) 00 Medicin 100-25 MG e per tablet losartan-hy Yes TK ONE [facility] drochloroth 5-27 PO D [facility] iazide 00:00: of (HYZAAR) 00 Medicin 100-25 MG e per tablet losartan-hy Yes TK ONE [facility] dro[facility] 5-27 PO D [facility] iazide 00:00: of (HYZAAR) 00 Medicin 100-25 MG e per tablet losartan-hy Yes TK ONE [facility] dro[facility] 5-27 PO D [facility] iazide 00:00: of (HYZAAR) 00 Medicin 100-25 MG e per tablet losartan-hy Yes TK ONE [facility] dro[facility] 5-27 PO D [facility] iazide 00:00: of (HYZAAR) 00 Medicin 100-25 MG e per tablet losartan-hy Yes TK ONE [facility] dro[facility] 5-27 PO D [facility] iazide 00:00: of (HYZAAR) 00 Medicin 100-25 MG e per tablet losartan-hy Yes TK ONE [facility] dro[facility] 5-27 PO D [facility] iazide 00:00: of (HYZAAR) 00 Medicin 100-25 MG e per tablet losartan-hy Yes TK ONE [facility] dro[facility] 5-27 PO D [facility] iazide 00:00: of (HYZAAR) 00 Medicin 100-25 MG e per tablet losartan-hy Yes TK ONE [facility] dro[facility] 5-27 PO D [facility] iazide 00:00: of (HYZAAR) 00 Medicin 100-25 MG e per tablet losartan-hy Yes TK ONE [facility] dro[facility] 5-27 PO D [facility] iazide 00:00: of (HYZAAR) 00 Medicin 100-25 MG e per tablet losartan-hy 2017-0 Yes TK ONE [facility] dro[facility] 5-27 PO D [facility] iazide 00:00: of (HYZAAR) 00 Medicin 100-25 MG e per tablet metformin Yes TK 2 TS [facility] (GLUCOPHAGE 5-22 BID [facility] -XR) 500 MG 00:00: of XR tablet 00 Medicin e metformin Yes TK 2 TS [facility] (GLUCOPHAGE 5-22 BID [facility] -XR) 500 MG 00:00: of XR tablet 00 Medicin e metformin Yes TK 2 TS [facility] (GLUCOPHAGE 5-22 BID [facility] -XR) 500 MG 00:00: of XR tablet 00 Medicin e metformin Yes TK 2 TS [facility] (GLUCOPHAGE 5-22 BID [facility] -XR) 500 MG 00:00: of XR tablet 00 Medicin e metformin Yes TK 2 TS [facility] (GLUCOPHAGE 5-22 BID [facility] -XR) 500 MG 00:00: of XR tablet 00 Medicin e metformin Yes TK 2 TS [facility] (GLUCOPHAGE 5-22 BID [facility] -XR) 500 MG 00:00: of XR tablet 00 Medicin e metformin Yes TK 2 TS [facility] (GLUCOPHAGE 5-22 BID [facility] -XR) 500 MG 00:00: of XR tablet 00 Medicin e metformin Yes TK 2 TS [facility] (GLUCOPHAGE 5-22 BID [facility] -XR) 500 MG 00:00: of XR tablet 00 Medicin e metformin Yes TK 2 TS [facility] (GLUCOPHAGE 5-22 BID [facility] -XR) 500 MG 00:00: of XR tablet 00 Medicin e metformin Yes TK 2 TS [facility] (GLUCOPHAGE 5-22 BID [facility] -XR) 500 MG 00:00: of XR tablet 00 Medicin e metformin Yes TK 2 TS [facility] (GLUCOPHAGE 5-22 BID [facility] -XR) 500 MG 00:00: of XR tablet 00 Medicin e metformin Yes TK 2 TS [facility] (GLUCOPHAGE 5-22 BID [facility] -XR) 500 MG 00:00: of XR tablet 00 Medicin e Immunizations Ordered Immunization Filled Immunization Date Status Commen ts Source Name Name Tdap- (Boostrix, 2019-05-14 Completed Mirtha S eybold Adacel) 00:00:00 Tdap- (Boostrix, 2019-05-14 Completed Mirtha tylerbold Adacel) 00:00:00 - External Influenza Virus 2014-04-04 Completed Mirtha ybold Vaccine, age 6 months 00:00:00 and up Influenza Virus 2014-04-04 Completed Mirtha Woods ybold Vaccine, age 6 months 00:00:00 - E xternal and up Shingles SQ 2014-03-14 Completed Mirtha Seybol d (Zostavax) 00:00:00 Shingles SQ 2014-03-14 Completed Mirtha Seybol d (Zostavax) 00:00:00 - External Pneumococcal Vaccine, 2014-01-07 Completed Omer sey Seybold Polysaccharide 00:00:00 Pneumococcal Vaccine, 2014-01-07 Completed Omer sey [facility] Polysaccharide 00:00:00 - External Vital Signs Vital Name Observation Time Observation Value Comments Source HEIGHT 2019-12-23 00:00:00 170.2 cm WEIGHT 2019-12-23 00:00:00 92.987 kg Systolic blood 2022-05-04 14:01:00 124 mm[Hg] Mirtha Woodsybold - pressure External Diastolic blood 2022-05-04 14:01:00 72 mm[Hg] Gomez delgadillo Seybold - pressure External Heart rate 2022-05-04 14:01:00 82 /min Mirthasolomon tylerbogénesis - External Body temperature 2022-05-04 14:01:00 36.56 Dina Kenzie tyler Seybold - External Respiratory rate 2022-05-04 14:01:00 14 /min Kenziemeredith tyler Seybold - External Body height 2022-05-04 14:01:00 172.7 cm Mirtha Meredith nayelibogénesis - External Body weight 2022-05-04 14:01:00 97.977 kg Mirtha Meredith nayelibogénesis - External BMI 2022-05-04 14:01:00 32.84 kg/m2 Mirtha S nayelibogénesis - External Oxygen saturation in 2022-05-04 14:01:00 99 /min Mirtha Edge - Arterial blood by External Pulse oximetry Systolic blood 2021-03-19 14:46:00 156 mm[Hg] Mirtha Woodsybskylar pressure Diastolic blood 2021-03-19 14:46:00 76 mm[Hg] Kelse y Seybskylar pressure Heart rate 2021-03-19 14:46:00 63 /min Mirtha burns Body temperature 2021-03-19 14:46:00 36.56 Dina Kenzie Edge Respiratory rate 2021-03-19 14:46:00 16 /min Kenzie Edge Body height 2021-03-19 14:46:00 165.1 cm Mirtha burns Body weight 2021-03-19 14:46:00 92.534 kg Mirtha burns BMI 2021-03-19 14:46:00 33.95 kg/m2 Mirtha burns HEIGHT 2019-12-23 00:00:00 170.2 cm WEIGHT 2019-12-23 00:00:00 92.987 kg Systolic blood 2019-12-23 15:05:00 135 mm[Hg] [facility] Medicine Diastolic blood 2019-12-23 15:05:00 70 mm[Hg] [facility] Medicine Heart rate 2019-12-23 15:05:00 48 /min [facility] Systolic blood 2019-12-23 15:05:00 135 mm[Hg] [facility] Diastolic blood 2019-12-23 15:05:00 70 mm[Hg] [facility] Medicine Heart rate 2019-12-23 15:05:00 48 /min [facility] Procedures This patient has no known procedures. Plan of Care Planned Activity Planned Date Details Comments Source Future Scheduled 2022-04-03 HEPATITIS B VACCINES [facility] 13:39:02 (1 of 3 - 3-dose Hospital series) [code = HEPATITIS B VACCINES (1 of 3 - 3-dose series)] Future Scheduled 2022-04-03 COVID-[address] Test 13:39:02 (#1) [code = Hospital COVID-19 VACCINE (#1)] Future Scheduled 2022-04-03 COLONOSCOPY [facility] 13:39:02 SCREENING [code = Hospital COLONOSCOPY SCREENING] Future Scheduled 2022-04-03 SHINGLES VACCINES (1 [facility] 13:39:02 of 2) [code = Hospital SHINGLES VACCINES (1 of 2)] Future Scheduled 2022-04-03 65+ [facility]OCOCCAL [facility] 13:39:02 VACCINE (1 - PCV) Hospital [code = 65+ PNEUMOCOCCAL VACCINE (1 - PCV)] Future Scheduled 2022-04-03 INFLUENZA VACCINE [facility] Test 13:39:02 [code = INFLUENZA Hospital VACCINE] Future Scheduled 2022-01-[address] [facility] Test 00:00:00 (#1) [code = Medical Center INFLUENZA VACCINE (#1)] Future Scheduled 2021-05-[address] [facility] Test 00:00:00 (12+) [code = Medical Center DEPRESSION SCREENING (12+)] Future Scheduled 2021-05-29 FALLS RISK SCREENING [facility] Test 00:00:00 [code = FALLS RISK Medical C enter SCREENING] Future Scheduled 2020-12-[address] [facility] Test 00:00:00 [facility] Cent[facility] r Screening (12+) [code = Tobacco Cessation Counseling and Screening (12+)] Future Scheduled 2013 PNEUMOCOCCAL 65+ YRS [facility] Test 00:00:00 (1 - PCV) [code = Medical Ce nter PNEUMOCOCCAL 65+ YRS (1 - PCV)] Future Scheduled 1998 SHINGLES VACCINES ([address] [facility] Test 00:00:00 of 2) [code = Medical Center SHINGLES VACCINES (1 of 2)] Future Scheduled 1967-11-18 DTAP/TDAP/TD [facility] Test 00:[facility]:00 VACCINES (1 - Tdap) [facility] Center [code = DTAP/TDAP/TD VACCINES (1 - Tdap)] Future Scheduled [address] [facility] Test 00:00:00 SCREENING [code = Medical Ce nter HEPATITIS C SCREENING] Future Scheduled 1949-05-19 COVID-[address] [facility] Test 00:00:00 (#1) [code = Medical Center COVID-19 VACCINE (#1)] Future Scheduled [address] [facility] Test 00[facility]00:00 (combo) [code = CT Medical C enter Colonography (combo)] Future Scheduled [address] [facility] 00:00:00 malignant neoplasm Medical C enter of colon (procedure) [code = 088463344] Future Scheduled [address] [facility] Test 00:00:00 malignant neoplasm Medical C enter of colon (procedure) [code = [id number]] Future Scheduled [address] [facility] Test 00:00:00 malignant neoplasm Medical C enter of colon (procedure) [code = [id number]] Future Scheduled [address] [facility] Test 00:00:00 malignant neoplasm Medical C enter of colon (procedure) [code = [id number]] Future Scheduled 1948 Sigmoidoscopy [code [facility] Test 00:00:00 = Sigmoidoscopy] Medical [address] [facility] Future Scheduled TETANUS SHOT (ADULT) [facility] [facility] Test [code = TETANUS SHOT of Medi cine (ADULT)] Future Scheduled Diabetic foot [facility] Test examination of Medicine (regime/therapy) [code = [id number]] Future Scheduled HEPATITIS C [facility] Test SCREENING [code = of Medicin e HEPATITIS C SCREENING] Future Scheduled AAA Screen [code = [facility] [employer] [facility] AAA Screen] of Medicine Future Scheduled FALL SCREEN [code = [facility] Test FALL SCREEN] of Medicine Future Scheduled PNEUMOVAX >=65 [facility] Test (PPSV23) [code = of Medicine PNEUMOVAX >=65 (PPSV23)] Future Scheduled FLU VACCINE > 6 [facility] Test MONTHS [code = FLU of Medici ne VACCINE > 6 MONTHS] Future Scheduled ANNUAL DIABETIC [facility] C [facility]lege Test RETINOPATHY of Medicine SCREENING [code = ANNUAL DIABETIC RETINOPATHY SCREENING] Future Scheduled COLON CANCER [facility] Test SCREENING: of Medicine COLONOSCOPY [code = COLON CANCER SCREENING: COLONOSCOPY] Future Scheduled TETANUS SHOT (ADULT) [employer] [employer] [facility] Test [code = TETANUS SHOT of Medi cine (ADULT)] Future Scheduled Diabetic foot [facility] examination of Medicine (regime/therapy) [code = [id number]] Future Scheduled HEPATITIS C [facility] SCREENING [code = of Medicin e HEPATITIS C SCREENING] Future Scheduled AAA Screen [code = [facility] [employer] [facility] AAA Screen] of Medicine Future Scheduled FALL SCREEN [code = [facility] Test FALL SCREEN] of Medicine Future Scheduled PNEUMOVAX >=65 [facility] Test (PPSV23) [code = of Medicine PNEUMOVAX >=65 (PPSV23)] Future Scheduled FLU VACCINE > 6 [facility] C [facility]lege Test MONTHS [code = FLU of Medici ne VACCINE > 6 MONTHS] Future Scheduled ANNUAL DIABETIC [facility] C [facility]lege Test RETINOPATHY of Medicine SCREENING [code = ANNUAL DIABETIC RETINOPATHY SCREENING] Future Scheduled COLON CANCER [facility] Test SCREENING: of Medicine COLONOSCOPY [code = COLON CANCER SCREENING: COLONOSCOPY] Future Scheduled TETANUS SHOT (ADULT) [facility] [employer] [facility] Test [code = TETANUS SHOT of Medi cine (ADULT)] Future Scheduled Diabetic foot [facility] Test examination of Medicine (regime/therapy) [code = [id number]] Future Scheduled HEPATITIS C [facility] Test SCREENING [code = of Medicin e HEPATITIS C SCREENING] Future Scheduled [facility] Screen [code = [employer] [facility] AAA Screen] of Medicine Future Scheduled FALL SCREEN [code = [facility] Test FALL SCREEN] of Medicine Future Scheduled PNEUMOVAX >=65 [facility] Test (PPSV23) [code = of Medicine PNEUMOVAX >=65 (PPSV23)] Future Scheduled FLU VACCINE > 6 [facility] C [facility] Test MONTHS [code = FLU of Medici ne VACCINE > 6 MONTHS] Future Scheduled ANNUAL DIABETIC [facility] RETINOPATHY of Medicine SCREENING [code = ANNUAL DIABETIC RETINOPATHY SCREENING] Future Scheduled COLON CANCER [facility] Test SCREENING: of Medicine COLONOSCOPY [code = COLON CANCER SCREENING: COLONOSCOPY] Future Scheduled TETANUS SHOT (ADULT) [facility] [employer] [facility] Test [code = TETANUS SHOT of Medi cine (ADULT)] Future Scheduled COLON CANCER [facility] Test SCREENING: of Medicine COLONOSCOPY [code = COLON CANCER SCREENING: COLONOSCOPY] Future Scheduled TETANUS SHOT (ADULT) [facility] [facility] [facility] Test [code = TETANUS SHOT of Medi cine (ADULT)] Future Scheduled Diabetic foot [facility] Test examination of Medicine (regime/therapy) [code = [id number]] Future Scheduled HEPATITIS C [facility] Test SCREENING [code = of Medicin e HEPATITIS C SCREENING] Future Scheduled AAA Screen [code = [employer] [facility] AAA Screen] of Medicine Future Scheduled FALL SCREEN [code = [facility] [employer] Test FALL SCREEN] of Medicine Future Scheduled PNEUMOVAX >=65 [facility] Test (PPSV23) [code = of Medicine PNEUMOVAX >=65 (PPSV23)] Future Scheduled HEPATITIS C [facility] SCREENING [code = of Medicin e HEPATITIS C SCREENING] Future Scheduled FLU VACCINE > 6 [facility] Test MONTHS [code = FLU of Medici ne VACCINE > 6 MONTHS] Future Scheduled ANNUAL DIABETIC [facility] C [facility] Test RETINOPATHY of Medicine SCREENING [code = ANNUAL DIABETIC RETINOPATHY SCREENING] Future Scheduled FALL SCREEN [code = [facility] [employer] Test FALL SCREEN] of Medicine Future Scheduled PNEUMOVAX >=65 [facility] Test (PPSV23) [code = of Medicine PNEUMOVAX >=65 (PPSV23)] Future Scheduled COLON CANCER [facility] Test SCREENING: of Medicine COLONOSCOPY [code = COLON CANCER SCREENING: COLONOSCOPY] Future Scheduled TETANUS SHOT (ADULT) [employer] [facility] Test [code = TETANUS SHOT of Medi cine (ADULT)] Future Scheduled Diabetic foot [facility] Test examination of Medicine (regime/therapy) [code = [id number]] Future Scheduled HEPATITIS C [facility] Test SCREENING [code = of Medicin e HEPATITIS C SCREENING] Future Scheduled [facility] Screen [code = [employer] [facility] AAA Screen] of Medicine Future Scheduled FALL SCREEN [code = [facility] [employer] Test FALL SCREEN] of Medicine Future Scheduled PNEUMOVAX >=65 [facility] Test (PPSV23) [code = of Medicine PNEUMOVAX >=65 (PPSV23)] Future Scheduled FLU VACCINE > 6 [facility] C [facility]lege Test MONTHS [code = FLU of Medici ne VACCINE > 6 MONTHS] Future Scheduled ANNUAL DIABETIC [facility] C [facility] Test RETINOPATHY of Medicine SCREENING [code = ANNUAL DIABETIC RETINOPATHY SCREENING] Future Scheduled PREVNAR >= 65 [facility] Test (PCV13) [code = of Medicine PREVNAR >= 65 (PCV13)] Future Scheduled FLU VACCINE > 6 [facility] Test MONTHS [code = FLU of Medici ne VACCINE > 6 MONTHS] Future Scheduled COLON CANCER [facility] Test SCREENING: of Medicine COLONOSCOPY [code = COLON CANCER SCREENING: COLONOSCOPY] Future Scheduled TETANUS SHOT (ADULT) [employer] Test [code = TETANUS SHOT of Medi cine (ADULT)] Future Scheduled Diabetic foot [facility] Test examination of Medicine (regime/therapy) [code = [id number]] Future Scheduled HEPATITIS C [facility] SCREENING [code = of Medicin e HEPATITIS C SCREENING] Future Scheduled [facility] Screen [code = [employer] [facility] AAA Screen] of Medicine Future Scheduled FALL SCREEN [code = [facility] [facility] [employer] Test FALL SCREEN] of Medicine Future Scheduled PNEUMOVAX >=65 [facility] Test (PPSV23) [code = of Medicine PNEUMOVAX >=65 (PPSV23)] Future Scheduled FLU VACCINE > 6 [facility] Test MONTHS [code = FLU of Medici ne VACCINE > 6 MONTHS] Future Scheduled ANNUAL DIABETIC [facility] Test RETINOPATHY of Medicine SCREENING [code = ANNUAL DIABETIC RETINOPATHY SCREENING] Future Scheduled COLON CANCER [facility] Test SCREENING: of Medicine COLONOSCOPY [code = COLON CANCER SCREENING: COLONOSCOPY] Future Scheduled TETANUS SHOT (ADULT) [employer] Test [code = TETANUS SHOT of Medi cine (ADULT)] Future Scheduled Diabetic foot [facility] Test examination of Medicine (regime/therapy) [code = [id number]] Future Scheduled HEPATITIS C [facility] Test SCREENING [code = of Medicin e HEPATITIS C SCREENING] Future Scheduled ZOSTER VACCINE (1 of [employer] Test 2) [code = ZOSTER of Medicin e VACCINE (1 of 2)] Future Scheduled [facility] Screen [code = [employer] [facility] AAA Screen] of Medicine Future Scheduled FALL SCREEN [code = [facility] Test FALL SCREEN] of Medicine Future Scheduled PNEUMOVAX >=65 [facility] Test (PPSV23) [code = of Medicine PNEUMOVAX >=65 (PPSV23)] Future Scheduled FLU VACCINE > 6 [facility] C [facility]lege Test MONTHS [code = FLU of Medici ne VACCINE > 6 MONTHS] Future Scheduled ANNUAL DIABETIC [facility] C [facility] Test RETINOPATHY of Medicine SCREENING [code = ANNUAL DIABETIC RETINOPATHY SCREENING] Future Scheduled COLON CANCER [facility] Test SCREENING: of Medicine COLONOSCOPY [code = COLON CANCER SCREENING: COLONOSCOPY] Future Scheduled TETANUS SHOT (ADULT) [employer] Test [code = TETANUS SHOT of Medi cine (ADULT)] Future Scheduled Diabetic foot [facility] Test examination of Medicine (regime/therapy) [code = [id number]] Future Scheduled HEPATITIS C [facility] Test SCREENING [code = of Medicin e HEPATITIS C SCREENING] Future Scheduled ZOSTER VACCINE (1 of [employer] Test 2) [code = ZOSTER of Medicin e VACCINE (1 of 2)] Future Scheduled [facility] Screen [code = [employer] [facility] AAA Screen] of Medicine Future Scheduled FALL SCREEN [code = [facility] [employer] Test FALL SCREEN] of Medicine Future Scheduled PNEUMOVAX >=65 [facility] Test (PPSV23) [code = of Medicine PNEUMOVAX >=65 (PPSV23)] Future Scheduled FLU VACCINE > 6 [facility] C [facility] Test MONTHS [code = FLU of Medici ne VACCINE > 6 MONTHS] Future Scheduled ANNUAL DIABETIC [facility] C [facility] Test RETINOPATHY of Medicine SCREENING [code = ANNUAL DIABETIC RETINOPATHY SCREENING] Future Scheduled COLON CANCER [facility] Test SCREENING: of Medicine COLONOSCOPY [code = COLON CANCER SCREENING: COLONOSCOPY] Future Scheduled TETANUS SHOT (ADULT) [employer] Test [code = TETANUS SHOT of Medi cine (ADULT)] Future Scheduled Diabetic foot [facility] Test examination of Medicine (regime/therapy) [code = [id number]] Future Scheduled HEPATITIS C [facility] Test SCREENING [code = of Medicin e HEPATITIS C SCREENING] Future Scheduled ZOSTER VACCINE (1 of [employer] Test 2) [code = ZOSTER of Medicin e VACCINE (1 of 2)] Future Scheduled [facility] Screen [code = [facility] [facility] [place] Test AAA Screen] of Medicine Future Scheduled FALL SCREEN [code = [employer] Test FALL SCREEN] of Medicine Future Scheduled PNEUMOVAX >=65 [facility] Co [facility]lege Test (PPSV23) [code = of Medicine PNEUMOVAX >=65 (PPSV23)] Future Scheduled FLU VACCINE > 6 [facility] C ollege Test MONTHS [code = FLU of Medici ne VACCINE > 6 MONTHS] Future Scheduled ANNUAL DIABETIC [facility] C [facility] Test RETINOPATHY of Medicine SCREENING [code = ANNUAL DIABETIC RETINOPATHY SCREENING] Future Scheduled COLON CANCER [facility] Migue [facility]ge Test SCREENING: of Medicine COLONOSCOPY [code = COLON CANCER SCREENING: COLONOSCOPY] Future Scheduled TETANUS SHOT (ADULT) [employer] Test [code = TETANUS SHOT of Medi cine (ADULT)] Future Scheduled HEPATITIS C [facility] Test SCREENING [code = of Medicin e HEPATITIS C SCREENING] Future Scheduled FALL SCREEN [code = [employer] Test FALL SCREEN] of Medicine Future Scheduled PNEUMOVAX >=65 [facility] Test (PPSV23) [code = of Medicine PNEUMOVAX >=65 (PPSV23)] Future Scheduled PREVNAR >= 65 [facility] Test (PCV13) [code = of Medicine PREVNAR >= 65 (PCV13)] Future Scheduled FLU VACCINE > 6 [facility] Test MONTHS [code = FLU of Medici ne VACCINE > 6 MONTHS] Future Scheduled DC REPAIR CORNEA Ordered: [facility] Test LAC,PERF,NO UVEAL 12/20/2019 of Medicin e [code = 98987] Future Scheduled COLON CANCER [facility] Test SCREENING: of Medicine COLONOSCOPY [code = COLON CANCER SCREENING: COLONOSCOPY] Future Scheduled TETANUS SHOT (ADULT) [facility] College Test [code = TETANUS SHOT of Medi cine (ADULT)] Future Scheduled Diabetic foot [facility] Col lege Test examination of Medicine (regime/therapy) [code = 908309414] Future Scheduled HEPATITIS C [facility] Test SCREENING [code = of Medicin e HEPATITIS C SCREENING] Future Scheduled AAA Screen [code = [facility] [place] Test AAA Screen] of Medicine Future Scheduled FALL SCREEN [code = [facility] or [place] Test FALL SCREEN] of Medicine Future Scheduled PNEUMOVAX >=65 [facility] Test (PPSV23) [code = of Medicine PNEUMOVAX >=65 (PPSV23)] Future Scheduled FLU VACCINE > 6 [facility] C [facility]lege Test MONTHS [code = FLU of Medici ne VACCINE > 6 MONTHS] Future Scheduled ANNUAL DIABETIC [facility] C [facility] Test RETINOPATHY of Medicine SCREENING [code = ANNUAL DIABETIC RETINOPATHY SCREENING] Future Scheduled COLON CANCER [facility] Test SCREENING: of Medicine COLONOSCOPY [code = COLON CANCER SCREENING: COLONOSCOPY] Future Scheduled CT ORBITS W WO 1 Occurrences [facility] C [facility]lege Test CONTRAST [code = starting of Medicine 38854] 12/20/2019 until 12/19/2020 Encounters Start End Encounter Admission Attending Care Care Encounter Source Date/Time Date/Time Type Type Clinicians Facility Department ID 2021-03-03 Outpatient CAL HUANG Surgery [id number] [facility] 01:06:36 JEANE 2019-09-24 [facility] [id number] [facility] 08:00:00 Franko Mckenzie [facility] 2019-08-08 Inpatient [facility] [id number] SLE 22:36:00 [id number] 2022-05-04 2022-05-04 Outpatient LAB90 MIRTHA SOLIS [id number] [facility] 09:00:00 09:00:00 Seybol d 2022-05-04 2022-05-04 Outpatient MIRTHA ALFARO [id number] [facility] 08:00:00 08:00:00 NAVEED Seybol d 2022-05-04 2022-05-04 Outpatient MIRTHA ALFARO [id number] [place] 00:00:00 00:00:00 NAVEED Seybol d 2022-05-02 2022-05-02 Outpatient MIRTHA KHAN [id number] [place] 00:00:00 00:00:00 AVERY Seybol d 2022-05-02 2022-05-02 Outpatient MIRTHA ALFARO [id number] [place] 00:00:00 00:00:00 NAVEED Seybol d 2021-07-15 2021-07-15 Outpatient REINA, [facility] [id number] [facility] 12:34:28 13:54:29 JEANE Colle ge of Medicin e 2021-06-24 2021-06-24 Outpatient MIRTHA ALFARO [id number] [place] 15:00:00 15:00:00 NAVEED Seybol d 2021-06-10 2021-06-10 Outpatient ALFRED, [facility] [id number] [facility] 12:25:46 14:50:53 JEANE Colle ge of Medicin e 2021-05-13 2021-05-13 Outpatient ALFRED, [facility] [id number] [facility] 12:47:48 15:00:02 JEANE Colle ge of Medicin e 2021-05-12 2021-05-12 Outpatient LROI VIVEROS [id number] [facility] 00:00:00 00:00:00 Seybol d 2021-05-11 2021-05-11 Outpatient MIRTHA ALFARO [id number] [place] 00:00:00 00:00:00 NAVEED Seybol d 2021-03-19 2021-03-19 Outpatient LAB90 MIRTHA SOLIS [id number] [facility] 11:00:00 11:00:00 Seybol d 2021-03-19 2021-03-19 Office Jairo Alfaro 1.2.840.114 [id number] [place] 09:44:50 10:29:50 Visit Naveed Retana 350.1.13.13 Se batsheva Miller 1.2.7.2.686 [id number] 2021-01-14 2021-01-14 Outpatient LAB90 MIRTHA SOLIS [id number] [place] 10:15:00 10:15:00 Seybol d 2021-01-14 2021-01-14 Outpatient LORI VIVEROS MIRTHA SOLIS [id number] [place] 00:00:00 00:00:00 Seybol d 2020-12-18 2020-12-18 Outpatient DOMINIC MIRTHA SOLIS [id number] [place] 10:30:00 10:30:00 NAVEED Seybol d 2020-11-03 2020-11-03 Outpatient REINA [facility] [id number] [facility] 13:14:18 14:57:56 JEANE Colle ge of Medicin e 2020-03-02 2020-03-02 Office Reina [facility] 1.2.840.114 [id number] 10:45:08 10:55:08 Visit Jeane AMBULATOR 350.1.13.21 Evelyn Y 0.2.7.2.686 [id number] 300 2020-03-02 2020-03-02 Office Reina, [facility] 1.2.840.114 [id number] [facility] 10:45:08 10:55:08 Visit Jeane AMBULATOR 350.1.13.21 College Evelyn Y 0.2.7.2.686 of [id number] Medi reginaldo 300 e 2020-01-28 2020-01-28 Office Reina [facility] 1.2.840.114 [id number] 12:31:31 12:41:31 Visit Jeane AMBULATOR 350.1.13.21 Evelyn Y 0.2.7.2.686 [id number] 300 2020-01-28 2020-01-28 Office Reina [facility] 1.2.840.114 [id number] [facility] 12:31:31 12:41:31 Visit Jeane AMBULATOR 350.1.13.21 College Evelyn Y 0.2.7.2.686 of [id number] Medi reginaldo 300 e 2020-01-20 2020-01-20 Office Reina [facility] 1.2.840.114 [id number] 10:26:35 10:36:35 Visit Jeane AMBULATOR 350.1.13.21 Evelyn Y 0.2.7.2.686 [id number] 300 2020-01-20 2020-01-20 Office Reina, BCM 1.2.840.[id number] [place] [address] 10:26:35 10:36:35 Visit Jeane AMBULATOR 350.1.13.21 College Evelyn Y 0.2.7.2.686 of [id number] Medi reginaldo 300 e 2020-01-06 2020-01-06 Office Blanco, BCM 1.2.840.114 [id number] 07:26:28 07:36:28 Visit Jeane AMBULATOR 350.1.13.21 Evelyn Y 0.2.7.2.686 [id number] 300 2020-01-06 2020-01-06 Office Reina, BCM 1.2.840.[id number] [place] [address] 07:26:28 07:36:28 Visit Jeane AMBULATOR 350.1.13.21 College Evelyn Y 0.2.7.2.686 of [id number] Medi reginaldo 300 e 2019-12-30 2019-12-30 Office Reina, BCM 1.2.840.114 [id number] 09:40:16 09:50:16 Visit Jeane AMBULATOR 350.1.13.21 Evelyn Y 0.2.7.2.686 [id number] 300 2019-12-30 2019-12-30 Office Reina, BCM 1.2.840.[id number] [place] [address] 09:40:16 09:50:16 Visit Jeane AMBULATOR 350.1.13.21 College Evelyn Y 0.2.7.2.686 of [id number] Medi reginaldo 300 e 2019-12-26 2019-12-26 Office Reina, BCM 1.2.840.114 [id number] 15:46:14 15:56:14 Visit Jeane AMBULATOR 350.1.13.21 Evelyn Y 0.2.7.2.686 [id number] 300 2019-12-26 2019-12-26 Office Reina, BCM 1.2.840.114 [id number] [facility] 15:46:14 15:56:14 Visit Jeane AMBULATOR 350.1.13.21 College Evelyn Y 0.2.7.2.686 of [id number] [facility] 300 e 2019-12-24 2019-12-24 Office Reina, BCM 1.2.840.114 [id number] 12:29:14 12:39:14 Visit Jeane AMBULATOR 350.1.13.21 Evelyn Y 0.2.7.2.686 [id number] 300 2019-12-24 2019-12-24 Office Blanco, BCM 1.2.840.[id number] [place] [address] 12:29:14 12:39:14 Visit Jeane AMBULATOR 350.1.13.21 College Evelyn Y 0.2.7.2.686 of [id number] [facility] 300 e 2019-12-23 2019-12-23 Office Reina, [place] 1.2.840.114 [id number] 09:45:01 10:26:23 Visit Jeane AMBULATOR 350.1.13.21 Evelyn Y 0.2.7.2.686 [id number] [facility] 2019-12-23 2019-12-23 Office Reina, [facility] 1.2.840.[id number] [place] [address] 09:45:01 10:26:23 Visit Jeane AMBULATOR 350.1.13.21 College Evelyn Y 0.2.7.2.686 of [id number] [facility] 300 e 2019-12-23 2019-12-23 Outpatient [facility] [id number] [facility] 00:00:00 00:00:00 2019-12-21 2019-12-21 Office Reina, [facility] 1.2.840.114 [id number] 09:00:00 09:10:00 Visit Jeane AMBULATOR 350.1.13.21 Evelyn Y 0.2.7.2.686 [id number] 300 2019-12-21 2019-12-21 Office Blanco, BCM 1.2.840.114 [id number] [facility] 09:00:00 09:10:00 Visit Jeane AMBULATOR 350.1.13.21 College Evelyn Y 0.2.7.2.686 of [id number] Medi reginaldo 300 e 2019-12-20 2019-12-20 Office AYSE Huang 1.2.840.114 [id number] 13:44:32 17:12:04 Visit Jeane AMBULATOR 350.1.13.21 Evelyn Y 0.2.7.2.686 [id number] 300 2019-12-20 2019-12-20 Office AYSE Huang 1.2.840.114 [id number] [facility] 13:44:32 17:12:04 Visit Jeane AMBULATOR 350.1.13.21 College Evelyn Y 0.2.7.2.686 of [id number] [facility] reginaldo 300 e 2019-12-20 2019-12-20 [facility] [id number] [address] [place] [address] 00:00:00 00:00:00 JEANE [address] 2019-07-23 2019-07-23 Office AYSE Huang 1.2.840.114 [id number] 13:06:08 13:16:08 Visit Jeane AMBULATOR 350.1.13.21 Evelyn Y 0.2.7.2.686 [id number] 300 2019-07-23 2019-07-23 Office AYSE Huang 1.2.840.[id number] [place] [address] 13:06:08 13:16:08 Visit Jeane AMBULATOR 350.1.13.21 College Evelyn Y 0.2.7.2.686 of [id number] [facility] reginaldo 300 e 2019-01-15 2019-01-15 Office MYRON Huang 1.2.840.114 [id number] 14:15:43 14:30:43 Visit Jeane AMBULATOR 350.1.13.21 Evelyn Y 0.2.7.2.686 [id number] 300 2019-01-15 2019-01-15 Office AYSE Huang 1.2.840.114 [id number] [facility] 14:15:43 14:30:43 Visit Jeane AMBULATOR 350.1.13.21 College Evelyn Y 0.2.7.2.686 of [id number] [facility] reginaldo 300 e Results Test Description Test Time Test Comments Results Result Comments Source POCT-GLUCOSE METER 2019-12-25 07:30:00 Test Item Value Reference Range Interpretation Comme nts POC-GLUCOSE METER (BEAKER) 129 mg/dL 70-110 H : TESTED AT [facility] [address], (test code = 1538) [place] [address]: General Assembler Installer/Techni adalid ID = [id number] for [employer] GOOD TTE CALCULI URINARY WITH [id number] 15:09:00 Test Item Value Reference Range Interpretation Comments ST COLOR (test code = [place] () COLST) ST SIZE (test code = 5x4 mm () Multipl e pieces SIZST) received. Dimen sions of the largest piecereported. ST WEIGHT (test [...] [facility] at: . - XR FLUOROSCOPY 0-60 [id number] 10:11:00 Name: CHRISTINA NICHOLS [place] : 1950 Age/S: 68 / M [address] Unit #: [id number] Loc: [place] [address] Phys: Franko Crowley MD Acct: [id number] Dis Date: Status: [place] [facility] [place] #: [phone] Exam Date: 09/24/2019 0861 FAX #: Reason: LASER LITHO WITH STENT EXAMS: CPT: [id number] XR FLUOROSCOPY 0-60 MIN 00455 Fluoro Time: 28 SEC DAP (Gy m2): Air Kerma (mGy): EXAM: - XR FLUOROSCOPY 0-60 MIN HISTORY: LASER LITHO WITH STENT LOCATION CODE: B2 IMPRESSION: Fluoroscopic images provided for surgical guidance. Please see operative report for full details. Fluoroscopy time:28.9seconds Cumulative Dose: 8.79 mGy at 1011 Reported and signed by: Edda Diallo MD CC: Franko Crowley MD; Sagar Cavanaugh MD PAGE 1 Signed Report Name: CHRISTINA NICHOLS : 1950 Age/S: 68 / M [address] Unit #: [id number] Loc: [place] [address] Phys: Franko Crowley MD Acct: [id number] Date: Status: REG SDC PHONE #: [phone] Exam Date: 09/24/2019 0845 FAX #: Reason: LASER LITHO WITH STENT EXAMS: CPT: [id number] XR FLUOROSCOPY 0-60 MIN 76526 Fluoro Time: 28 SEC DAP (Gy m2): Air Kerma (mGy): (Continued) Technologist: Maggy Monge, RT(R) Trnscb Date/Time: 09/24/2019 (1011) [email or web address] Orig Print D/T: S: 09/24/2019 (1015) PAGE 2 Signed ReportGLUCOSE BEDSIDE [id number] 06:32:00 Test Item Value Reference Range Interpretation Comments GLUCOSE BEDSIDE TESTING (test code 141 mg/dL 70-110 H = GLUBED) URINALYSIS [id number] 14:48:00 Test Item Value Reference Range Interpretation Comments RBC UA (BEAKER) (test code = 519) 1072 /HPF WBC UA (BEAKER) (test code = 520) 1555 /HPF General Assembler Installer ID - techURINALYSIS WITH MICROSCOPIC IF [id number] 14:37:00 Test Item Value Reference Range Interpretation [...] = 463) SOURCE(BEAKER) (test code = 2795) General Assembler Installer ID - [auto]FL, FLUORO, NON-SPECIFIC, UP TO 1 [id number] 11:28:00 Reason for exam:->ureter stoneFINAL REPORT Fluoroscopic spot imaging was performed at the time of the procedure by the ordering service. This examination is nondiagnostic. Fluoroscopy was not performed by the un dersigned, and the radiologist was not present at the time of examination. Interpretation of the images was not requested. Total fluoroscopy time: 1 minute 42 seconds Total number of films: 32 Please refer to the referring physician's procedure report for complete detail. Signed: Iraj Loredo MDReplakeland regional hospital Verified Date/Time: 08/10/2019 11:28:32 Reading Location: [address] Reading Room -GLUCOSE [id number] 11:17:00 Test Item Value Reference Range Interpretation Comments POC-GLUCOSE METER 146 mg/dL 70-110 H : TESTED A T [facility] [address] (BEAKER) (test code = RUI Lamas [facility], 1538) [address]: General Assembler Installer/Techni adalid ID = [id number] for FRANCIA JULES BASIC METABOLIC [id number] 06:56:00 Test Item Value Reference Range Interpretation [...] S NOT APPLICABLE FOR DIALYSIS PATIEN TS. General Assembler Installer ID - KIKA MCBC W/PLT COUNT & AUTO [id number] 06:35:00 Test Item Value Reference Range Interpretation [...] PERCENT (BEAKER) (test code = 2801) POCT-GLUCOSE [id number] 23:53:00 Test Item Value Reference Range Interpretation Comments POC-GLUCOSE METER 168 mg/dL 70-110 H : TESTED A T [facility] [address] (BEAKER) (test code = FLORENCIAMACKENZIE Lamas [facility], 1538) [address]: General Assembler Installer/Techni adalid ID = [id number] for [place] MS, HENNA RAD, CHEST, 1 VIEW, NON [id number] 13:37:00Reason for exam:->pre-opShould this be performed at the bedside?->YesFINAL REPORT INDICATION: pre-op COMPARISON: None TECHNIQUE: Single frontal viewof the chest. FINDINGS: Lungs and pleura: Clear lungs. No effusion.Heart and mediastinum: Normal heart size. Unremarkable mediastinal contours.Osseous structures: No acute abnormality.Other: None. IMPRESSION: No acute intrathoracic abnormality. Signed: Amy Batista MDReport Verified Date/Time: 08/09/2019 13:37:32 Reading Location: [facility] Radiology Reading Room URINALYSIS W/ REFLEX URINE CULTURE 2019-08-09 07:47:00 Test Item Value Reference Range Interpretation [...] /LPF 514) SOURCE(BEAKER) (test code = 2795) General Assembler Installer ID - [auto]General Assembler Installer ID - hankBASIC METABOLIC [id number] 07:13:00 Test Item Value Reference Range Interpretation [...] S NOT APPLICABLE FOR DIALYSIS PATIEN TS. General Assembler Installer ID - KIKA MCBC W/PLT COUNT & AUTO [id number] 06:04:00 Test Item Value Reference Range Interpretation [...] (test code = 416) BASOPHILS ABSOLUTE COUNT ([facility]) 0.07 K/ L 0.01-0.08 (test code = 417) IMMATURE GRANULOCYTES-RELATIVE 0 % 0-1 PERCENT ([facility]) (test code = 2801) POCT-GLUCOSE [id number] 08:29:00 Test Item Value Reference Range Interpretation Comments POC-GLUCOSE METER 178 mg/dL 70-110 H TESTED AT [facility] 7[address] ([facility]) (test code [address] [place] = 1538) [place] [address]
[2022-05-04] MEDS ORDERED: NA CHLORIDE 0.9% 1,000 ML ONE (19:49)
--- NOTE | 2022-05-04 19:59 | ER ---
Nurse's Notes [facility] Name: Jose Perry Age: 71 yrs Sex: Male : 1950 Arrival Date: 05/04/2022 Time: 18:34 Bed 19 Private MD: Diagnosis: Chronic atrial fibrillation;Acute kidney failure, unspecified-ACUTE ON CHRONIC;Hyperkalemia Presentation: 05/04 19:04 Chief complaint: Patient states: "I was suppose to get shocked back into rhythm for tw5 afib, but they said my labs were all messed up. It was suppose to be tomorrow with Dr. Pyle.". Coronavirus screen: Vaccine status: Patient reports being unvaccinated. Ebola Screen: Patient negative for fever greater than or equal to 101.5 degrees Fahrenheit, and additional compatible Ebola Virus Disease symptoms Patient denies exposure to infectious person. Patient denies travel to an Ebola-affected area in the 21 days before illness onset. Initial Sepsis Screen: Does the patient meet any 2 criteria? No. Patient's initial sepsis screen is negative. Does the patient have a suspected source of infection? No. Patient's initial sepsis screen is negative. Risk Assessment: Do you want to hurt yourself or someone else? Patient reports no desire to harm self or others. Onset of symptoms is unknown. 19:04 Method Of Arrival: Ambulatory tw5 19:04 Acuity: JESSIKA 3 tw5 Triage Assessment: 19:06 General: Appears in no apparent distress. Behavior is calm, cooperative. Pain: Denies tw5 pain. Historical: - Allergies: 19:06 No Known Allergies; tw5 - Home Meds: 19:06 cholecalciferol (vitamin D3) 25 mcg (1,000 unit) Oral cap [Active]; fluorometholone tw5 0.25 % ophthalmic (eye) drps 1 drop 2 times per day [Active]; latanoprost 0.005 % ophthalmic (eye) drop 1 drop once daily [Active]; losartan-hydrochlorothiazide 100-25 mg Oral tab 1 tab once daily [Active]; metformin 500 mg Oral tr24 2 tabs 2 times per day [Active]; minoxidil 10 mg Oral tab 1 tab once daily [Active]; omega-3 fatty acids 1,000 mg Oral cap daily [Active]; Metoprolol Tartrate Oral [Active]; Eliquis oral [Active]; - PMHx: 19:06 BRADYCARDIA; Diabetes - NIDDM; High Cholesterol; Hypertension; Atrial fibrillation; tw5 - PSHx: 19:06 cataract repair; kidney stone removal; tw5 - Immunization history:: Flu vaccine is not up to date. - Social history:: Smoking status: Patient denies any tobacco usage or history of. Screenin:45 Abuse screen: Denies threats or abuse. Nutritional screening: No deficits noted. em6 Tuberculosis screening: No symptoms or risk factors identified. Fall Risk Total Gill Fall Scale indicates No Risk (0-24 pts). Assessment: 19:45 General: Appears in no apparent distress. Behavior is calm. Pain: Denies pain. Neuro: em6 Miller Agitation-Sedation Scale (RASS): 0 - Alert and Calm. Cardiovascular: Patient's skin is warm and dry. Respiratory: Airway is patent Respiratory effort is even, unlabored, Respiratory pattern is regular, symmetrical. GI: Abdomen is non-distended, Abd is soft and non tender X 4 quads. : No signs and/or symptoms were reported regarding the genitourinary system. EENT: No signs and/or symptoms were reported regarding the EENT system. Derm: No signs and/or symptoms reported regarding the dermatologic system. Musculoskeletal: Circulation, motion, and sensation intact. Range of motion: intact in all extremities. 20:45 Reassessment: Patient appears in no apparent distress at this time. No changes from em6 previously documented assessment. Patient and/or family updated on plan of care and expected duration. Pain level reassessed. Patient is alert, oriented x 3, equal unlabored respirations, skin warm/dry/pink. 21:45 Reassessment: Patient appears in no apparent distress at this time. No changes from em6 previously documented assessment. Patient and/or family updated on plan of care and expected duration. Pain level reassessed. Patient is alert, oriented x 3, equal unlabored respirations, skin warm/dry/pink. 22:45 Reassessment: Patient appears in no apparent distress at this time. No changes from em6 previously documented assessment. Patient and/or family updated on plan of care and expected duration. Pain level reassessed. Patient is alert, oriented x 3, equal unlabored respirations, skin warm/dry/pink. 23:45 Reassessment: Patient appears in no apparent distress at this time. No changes from em6 previously documented assessment. Patient and/or family updated on plan of care and expected duration. Pain level reassessed. Patient is alert, oriented x 3, equal unlabored respirations, skin warm/dry/pink. Vital Signs: 19:04 BP 122 / 58; Pulse 81; Resp 18; Temp 98.2; Pulse Ox 99% on R/A; Weight 97.07 kg; Height tw5 5 ft. 8 in. (172.72 cm); Pain 0/10; 20:00 BP 124 / 73; Pulse 55; Resp 18; Pulse Ox 100% on R/A; em6 21:00 BP 118 / 71; Pulse 54; Resp 18; Pulse Ox 100% on R/A; em6 22:00 BP 121 / 73; Pulse 62; Resp 18; Pulse Ox 100% on R/A; em6 23:00 BP 137 / 73; Pulse 63; Resp 18; Pulse Ox 100% on R/A; em6 19:04 Body Mass Index 32.54 (97.07 kg, 172.72 cm) tw5 ED Course: 18:34 Patient arrived in ED. rg4 19:06 Triage completed. tw5 19:06 Tre Aranda MD is Attending Physician. iglesia 19:06 Arm band placed on. tw5 19:39 Cecile Mcmanus, BE is Primary Nurse. em6 19:45 Placed in gown. Bed in low position. Call light in reach. Side rails up X 1. Cardiac em6 monitor on. Pulse ox on. NIBP on. Warm blanket given. 19:57 Kervin Lozano MD is Hospitalizing Provider. iglesia 19:59 SARS RAPID Sent. em6 19:59 Lipase Sent. em6 19:59 Inserted saline lock: 20 gauge in right antecubital area, using aseptic technique. em6 Blood collected. 20:07 XRAY Chest (1 view) In Process Unspecified. EDMS 20:[address] In Process Unspecified. EDMS 22:49 Inserted saline lock: 20 gauge in left antecubital area, using aseptic technique. em6 22:50 Parada cath inserted, using sterile technique, 18 Fr., by sd, balloon inflated, to em6 gravity drainage, returned clear yellow urine. Patient tolerated well. Administered Medications: 12/08 00:07 Discontinued: NS 0.9% 1000 ml IV at 125 ml/hr continuous la1 05/04 20:11 Drug: NS 0.9% 1000 ml Route: IV; Rate: 125 ml/hr; Site: left antecubital; em6 12 00:22 Follow up: Response: No adverse reaction; IV Status: Completed infusion em6 05/04 21:09 Drug: Kayexalate (polystyrene) 30 grams Route: PO; em6 22:00 Follow up: Response: No adverse reaction em6 22:21 Drug: Rocephin (cefTRIAXone) 1 grams Route: IV; Rate: per protocol; Site: left em6 antecubital; 23:00 Follow up: Response: No adverse reaction; IV Status: Completed infusion; IV Intake: [id number] 22:22 Drug: Kayexalate (polystyrene) 15 grams Route: PO; em6 23:00 Follow up: Response: No adverse reaction em6 23:04 Drug: Lasix (furosemide) 100 mg Route: IVP; Site: left antecubital; em6 23:30 Follow up: Response: No adverse reaction em6 23:35 Drug: Calcium Gluconate 1 grams Route: IVPB; Infused Over: 120 mins; Site: left em6 antecubital; 23:35 Drug: D10 in Water [2 mL/kg] 250 ml Route: IVP; Site: right antecubital; em6 23:51 Follow up: Response: No adverse reaction em6 23:52 Drug: Insulin Regular Human 10 units {Co-Signature: em6 (Cecile Mcmanus RN).} Route: kl IVP; Site: left antecubital; 05/05 00:29 Follow up: Response: No adverse reaction em6 05/04 23:57 Drug: Sodium Bicarbonate 1 amp Route: IVP; Site: right antecubital; em6 05/05 00:27 Follow up: Response: No adverse reaction em6 05/04 23:57 Drug: D5W 1000 ml, Sodium Bicarbonate 150 mEq Route: IV; Rate: 100 ml/hr; Site: right em6 antecubital; Medication: 05/05 00:34 VIS not applicable for this client. em6 Intake: 05/04 23:00 IV: 10ml; Total: 10ml. em6 Outcome: 19:58 Decision to Hospitalize [facility] Provider[facility] 05/05 18:43 Patient left the ED. kj1 Signatures: Dispatcher [employer] EDKaye Stewart, RN Tre Lewis MD MD cha Garcia, Rubi rg4 Erin Retana1 Mica Vega 5 Cecile Mcmanus RN RN em6 Cecile Mcmanus RN em6
--- NOTE | 2022-05-04 19:59 | EDPHYS ---
Physician Documentation [facility] Name: Jose Perry Age: 71 yrs Sex: Male : 1950 Arrival Date: 05/04/2022 Time: 18:34 Bed 19 Private MD: ED Physician Tre Aranda HPI: 05/04 19:47 This 71 yrs old Male presents to ER via Ambulatory with complaints of iglesia Abnormal Lab Results. 19:47 sent for BAD LABS. Onset: The symptoms/episode began/occurred 3 day(s) ago. Severity of iglesia symptoms: At their worst the symptoms were mild in the emergency department the symptoms are unchanged. The patient has not experienced similar symptoms in the past. Historical: - Allergies: 19:06 No Known Allergies; tw5 - Home Meds: 19:06 cholecalciferol (vitamin D3) 25 mcg (1,000 unit) Oral cap [Active]; fluorometholone tw5 0.25 % ophthalmic (eye) drps 1 drop 2 times per day [Active]; latanoprost 0.005 % ophthalmic (eye) drop 1 drop once daily [Active]; losartan-hydrochlorothiazide 100-25 mg Oral tab 1 tab once daily [Active]; metformin 500 mg Oral tr24 2 tabs 2 times per day [Active]; minoxidil 10 mg Oral tab 1 tab once daily [Active]; omega-3 fatty acids 1,000 mg Oral cap daily [Active]; Metoprolol Tartrate Oral [Active]; Eliquis oral [Active]; - PMHx: 19:06 BRADYCARDIA; Diabetes - NIDDM; High Cholesterol; Hypertension; Atrial fibrillation; tw5 - PSHx: 19:06 cataract repair; kidney stone removal; tw5 - Immunization history:: Flu vaccine is not up to date. - Social history:: Smoking status: Patient denies any tobacco usage or history of. ROS: 19:48 Constitutional: Negative for fever, chills, and weight loss, Eyes: Negative for injury, iglesia pain, redness, and discharge, ENT: Negative for injury, pain, and discharge, Neck: Negative for injury, pain, and swelling, Cardiovascular: Negative for chest pain, palpitations, and edema, Respiratory: Negative for shortness of breath, cough, wheezing, and pleuritic chest pain, Abdomen/GI: Negative for abdominal pain, nausea, vomiting, diarrhea, and constipation, Back: Negative for injury and pain, : Negative for injury, bleeding, discharge, and swelling, MS/Extremity: Negative for injury and deformity, Skin: Negative for injury, rash, and discoloration, Psych: Negative for depression, anxiety, suicide ideation, homicidal ideation, and hallucinations, Allergy/Immunology: Negative for hives, rash, and allergies, Endocrine: Negative for neck swelling, polydipsia, polyuria, polyphagia, and marked weight changes, Hematologic/Lymphatic: Negative for swollen nodes, abnormal bleeding, and unusual bruising. 19:48 Neuro: Positive for weakness. Exam: 19:48 Constitutional: This is a well developed, well nourished patient who is awake, alert, iglesia and in no acute distress. Head/Face: Normocephalic, atraumatic. Eyes: Pupils equal round and reactive to light, extra-ocular motions intact. Lids and lashes normal. Conjunctiva and sclera are non-icteric and not injected. Cornea within normal limits. Periorbital areas with no swelling, redness, or edema. ENT: Nares patent. No nasal discharge, no septal abnormalities noted. Tympanic membranes are normal and external auditory canals are clear. Oropharynx with no redness, swelling, or masses, exudates, or evidence of obstruction, uvula midline. Mucous membranes moist. Neck: Trachea midline, no thyromegaly or masses palpated, and no cervical lymphadenopathy. Supple, full range of motion without nuchal rigidity, or vertebral point tenderness. No Meningismus. Chest/axilla: Normal chest wall appearance and motion. Nontender with no deformity. No lesions are appreciated. Cardiovascular: Regular rate and rhythm with a normal S1 and S2. No gallops, murmurs, or rubs. Normal PMI, no JVD. No pulse deficits. Respiratory: Lungs have equal breath sounds bilaterally, clear to auscultation and percussion. No rales, rhonchi or wheezes noted. No increased work of breathing, no retractions or nasal flaring. Abdomen/GI: Soft, non-tender, with normal bowel sounds. No distension or tympany. No guarding or rebound. No evidence of tenderness throughout. Back: No spinal tenderness. No costovertebral tenderness. Full range of motion. Male : Normal genitalia with no discharge or lesions. Skin: Warm, dry with normal turgor. Normal color with no rashes, no lesions, and no evidence of cellulitis. MS/ Extremity: Pulses equal, no cyanosis. Neurovascular intact. Full, normal range of motion. Neuro: Awake and alert, GCS 15, oriented to person, place, time, and situation. Cranial nerves II-XII grossly intact. Motor strength 5/5 in all extremities. Sensory grossly intact. Cerebellar exam normal. Normal gait. Psych: Awake, alert, with orientation to person, place and time. Behavior, mood, and affect are within normal limits. 19:48 ECG was reviewed by the Attending Physician. Vital Signs: 19:04 BP 122 / 58; Pulse 81; Resp 18; Temp 98.2; Pulse Ox 99% on R/A; Weight 97.07 kg; Height tw5 5 ft. 8 in. (172.72 cm); Pain 0/10; 20:00 BP 124 / 73; Pulse 55; Resp 18; Pulse Ox 100% on R/A; em6 21:00 BP 118 / 71; Pulse 54; Resp 18; Pulse Ox 100% on R/A; em6 22:00 BP 121 / 73; Pulse 62; Resp 18; Pulse Ox 100% on R/A; em6 23:00 BP 137 / 73; Pulse 63; Resp 18; Pulse Ox 100% on R/A; em6 19:04 Body Mass Index 32.54 (97.07 kg, 172.72 cm) tw5 MDM: 19:06 Patient medically screened. [facility] 19:51 Data reviewed: vital signs, nurses notes, lab test result(s), EKG, radiologic studies, iglesia plain films. Data interpreted: secured entrance monitor: rate is 81 beats/min, rhythm is atrial fibrillation, Pulse oximetry: on room air is 99 %. Test interpretation: by ED physician or midlevel provider: ECG, plain radiologic studies. Counseling: I had a detailed discussion with the patient and/or guardian regarding: the historical points, exam findings, and any diagnostic results supporting the discharge/admit diagnosis, lab results, radiology results. 05/04 19:23 Order name: Basic Metabolic Panel; Complete Time: 20:52 [facility] 05/04 19:23 Order name: CBC with Diff; Complete Time: 20:33 [facility] 05/04 19:23 Order name: LFT's; Complete Time: 20:52 [facility] 05/04 19:23 Order name: Magnesium; Complete Time: 20:52 [facility] 05/04 19:23 Order name: NT PRO-BNP; Complete Time: 20:52 [facility] 05/04 19:23 Order name: PT-INR; Complete Time: 20:33 [facility] 05/04 19:23 Order name: Troponin HS; Complete Time: 20:52 [facility] 05/04 19:23 Order name: Lipase; Complete Time: 20:52 [facility] 05/04 19:24 Order name: SARS RAPID; Complete Time: 20:33 [facility] 05/04 20:11 Order name: Uric Acid; Complete Time: 20:52 [facility] 05/04 20:11 Order name: Creatine Phosphokinase; Complete Time: 20:52 [facility] 05/04 20:12 Order name: Urine Dipstick-Ancillary; Complete Time: 20:13 [facility] 05/04 21:16 Order name: Urine Culture [facility] 05/04 21:31 Order name: Potassium; Complete Time: 03:36 [facility] 05/05 02:57 Order name: Glucose, Ancillary Testing; Complete Time: 03:36 [facility] 05/05 05:05 Order name: CBC with Automated Diff [facility] 05/05 05:26 Order name: Hemoglobin A1c; Complete Time: 17:55 [facility] 05/05 06:14 Order name: Comprehensive Metabolic Panel; Complete Time: 17:55 [facility] 05/05 06:14 Order name: Lipid Profile [facility] 05/05 06:14 Order name: T4 Free [facility] 05/05 06:14 Order name: Magnesium [facility] 05/05 06:14 Order name: Thyroid Stimulating Hormone [facility] 05/05 12:41 Order name: Phosphorus EDMS 05/05 13:37 Order name: Glucose, Ancillary Testing [facility] 05/05 13:39 Order name: UR SODIUM EDMS 05/05 13:39 Order name: UR POTASSIUM EDMS 05/05 13:39 Order name: UR CL RANDOM EDMS 05/05 14:04 Order name: Urinalysis W/Microscopic EDMS 05/04 19:23 Order name: XRAY Chest (1 view); Complete Time: 20:53 [facility] 05/04 19:23 Order name: EKG; Complete Time: 19:24 [facility] 05/04 19:23 Order name: Cardiac monitoring; Complete Time: 19:59 [facility] 05/04 19:23 Order name: EKG - Nurse/Tech; Complete Time: 19:59 [facility] 05/04 19:23 Order name: IV Saline Lock; Complete Time: 19:59 [facility] 05/04 19:23 Order name: Labs collected and sent; Complete Time: 19:59 [facility] 05/04 19:23 Order name: O2 Per Protocol; Complete Time: 19:59 [facility] 05/04 19:23 Order name: O2 Sat Monitoring; Complete Time: 19:59 [facility] 05/04 19:23 Order name: Urine Dipstick-Ancillary (obtain specimen); Complete Time: 20:11 [facility] 05/04 19:42 Order name: Stone Protocol CT; Complete Time: 21:13 la1 05/04 21:27 Order name: Parada; Complete Time: 23:25 [facility] 05/05 07:41 Order name: US EDMS 05/05 14:17 Order name: Ur Protein EDMS 05/05 14:17 Order name: Urine Microalbumin/Creatinine EDMS 05/05 17:27 Order name: Glucose, Ancillary Testing EDMS EC:48 Rate is 76 beats/min. Rhythm is irregularly irregular. QRS [place] is Normal. MA interval iglesia is normal. QRS interval is normal. QT interval is normal. No Q waves. T waves are Normal. No ST changes noted. Clinical impression: Atrial Fibrillation. Interpreted by me. Reviewed by me. Administered Medications: 05/05 00:07 Discontinued: NS 0.9% 1000 ml IV at 125 ml/hr continuous la1 05/04 20:11 Drug: NS 0.9% 1000 ml Route: IV; Rate: 125 ml/hr; Site: left antecubital; em6 05/05 00:22 Follow up: Response: No adverse reaction; IV Status: Completed infusion em6 05/04 21:09 Drug: Kayexalate (polystyrene) 30 grams Route: PO; em6 22:00 Follow up: Response: No adverse reaction em6 22:21 Drug: Rocephin (cefTRIAXone) 1 grams Route: IV; Rate: per protocol; Site: left em6 antecubital; 23:00 Follow up: Response: No adverse reaction; IV Status: Completed infusion; IV Intake: [id number] 22:22 Drug: Kayexalate (polystyrene) 15 grams Route: PO; em6 23:00 Follow up: Response: No adverse reaction em6 23:04 Drug: Lasix (furosemide) 100 mg Route: IVP; Site: left antecubital; em6 23:30 Follow up: Response: No adverse reaction em6 23:35 Drug: Calcium Gluconate 1 grams Route: IVPB; Infused Over: 120 mins; Site: left em6 antecubital; 23:35 Drug: D10 in Water [2 mL/kg] 250 ml Route: IVP; Site: right antecubital; em6 23:51 Follow up: Response: No adverse reaction em6 23:52 Drug: Insulin Regular Human 10 units {Co-Signature: em6 (Cecile Mcmanus RN).} Route: kl IVP; Site: left antecubital; 05/05 00:29 Follow up: Response: No adverse reaction em6 05/04 23:57 Drug: Sodium Bicarbonate 1 amp Route: IVP; Site: right antecubital; em6 05/05 00:27 Follow up: Response: No adverse reaction em6 05/04 23:57 Drug: D5W 1000 ml, Sodium Bicarbonate 150 mEq Route: IV; Rate: 100 ml/hr; Site: right em6 antecubital; Disposition Summary: 05/04/22 19:58 Hospitalization Ordered Hospitalization Status: Inpatient Admission iglesia Provider: Kervin Lozano cha Condition: Fair iglesia Problem: new iglesia Symptoms: are unchanged iglesia Bed/Room Type: Standard iglesia Location: Telemetry/MedSurg (Inpatient)(05/05/22 17:33) ja1 Room Assignment: [facility](05/05/22 17:33) ja Diagnosis - Chronic atrial fibrillation iglesia - Acute kidney failure, unspecified - ACUTE ON CHRONIC iglesia - Hyperkalemia iglesia Forms: - Medication Reconciliation Form iglesia - SBAR form iglesia Signatures: Dispatcher [employer] EDMS Kaye Faye RN RN kl Anderson, Corey, MD MD cha Attema, Lee, SPEECH INSTRUCTOR-C SPEECH INSTRUCTOR-Cla1 Gladis Chilel RN RN Marky Maza RN RN ja1 Mica Vega tw5 Cecile Mcmanus RN RN em6 Cecile Mcmanus RN em6 Corrections: (The following items were deleted from the chart) 20:11 19:39 CREATINE PHOSPHOKINASE+C.LAB.BRZ ordered. EDMS EDMS 20:11 19:39 URIC ACID+C.LAB.BRZ ordered. EDMS EDMS 19:58 Telemetry/MedSurg (Inpatient) [facility] cg 19:58 [facility] 05/05 17:33 05/04 21:30 [facility] ER [facility] ja 05/05 17:33 05/04 21:30 ERHOLD- cg ja1
[2022-05-04] MEDS ORDERED: SOD POLYSTYREN SUL 15 GM/60 ML UCUP ONE ×2 (20:03→22:19)
[2022-05-04 20:12] LABS: Urine Blood Trace-intact (Negative); Urine Glucose Negative (Negative); Urine Protein 1+ (Negative)
[2022-05-04 20:13] LABS: Absolute Lymphocytes (CBC) 0.7 K/uL (0.7-4.9); Hematocrit 36.1 % (39.6-49.0); Lymphocytes % 10.5 % (15.3-44.8); MCV 97.8 fL (80-100); RBC Red Blood Cell Count 3.69 M/uL (4.33-5.43)
[2022-05-04 20:19] LABS: SARS-CoV-2 Antigen Rapid Res Negative (Negative)
[2022-05-04 20:25] LABS: Protime INR 1.13
[2022-05-04 20:28] LABS: Albumin 3.8 g/dL (3.4-5.0); Bilirubin Direct 0.2 mg/dL (0-0.2); Bilirubin Total 0.6 mg/dL (0.2-1.0); Magnesium 1.7 mg/dL (1.8-2.4); Protein, Total 7.7 g/dL (6.4-8.2); Troponin High Sensitivity 14.8 pg/mL (<58.9); Uric Acid 10.3 mg/dL (3.5-7.2)
--- NOTE | 2022-05-04 20:51 | RAD REPORT ---
EXAM DESCRIPTION: RAD - Chest Single View - 05/04/2022 8:05 pm CLINICAL HISTORY: COUGH COMPARISON: Portable 12/02/2020 TECHNIQUE: AP portable chest image was obtained 05/04/2022 8:05 pm . FINDINGS: No peripheral mass or consolidation. Cardiomegaly is present accentuated by pericardial fa t pads. No acute failure or volume overload findings. No measurable pleural effusion and no pneumotho rax. No acute bony abnormality seen. No acute aortic findings suspected. IMPRESSION: No acute lung parenchymal process. Cardiomegaly without other findings of failure or volume overload.
--- NOTE | 2022-05-04 21:11 | RAD REPORT ---
EXAM DESCRIPTION: CT - Stone Protocol - 05/04/2022 8:54 pm CLINICAL HISTORY: Acute kidney failure, possible obstruction COMPARISON: <Comparisons> TECHNIQUE: Axial 3 mm thick images were obtained without oral or IV contrast. The aypac-gy-qauk span s the entirety of the system including uppermost abdomen and lung bases. All CT scans are performed using dose optimization technique as appropriate and may include automated exposure control or mA/KV adjustment according to patient size. FINDINGS: No hydronephrosis is present in either kidney. Parapelvic cysts are present. No obstructin g calculi seen. Patient has bilateral nonobstructing calyx calculi, more prominent on the left. An ex ophytic 2 centimeter homogeneous slightly hyperdense mass projects from the lateral mid right kidney matching the 2019 study. This is believed to be an incidental high protein content cyst. There is a l obulated or prominent contour anterior upper pole left kidney approximately 3 cm in size. This is mor e prominent than on the prior studies. This may still be isodense lobulated parenchyma. An isodense m ass, while lower in likelihood, cannot be excluded. Isodense masses and pyelonephritis are not exclud ed. There is nonspecific stranding along the course of the left ureter down to the UVJ. Urinary bladd er is only partially filled. Bladder pruitt appear thickened and edematous with shaggy margins. No pro state abnormality. Imaged portions of the liver, spleen and pancreas show no suspicious findings on non-contrast imaging . Cholelithiasis present. Gallbladder is contracted which accentuates wall thickness. No biliary tree dilatation. No suspicious bowel findings. No mass or bulky lymphadenopathy. Bilateral small fat filled inguinal hernias are present. No free ai r, free fluid or pneumatosis. No significant bony abnormality. IMPRESSION: No hydronephrosis or obstructing calculi. Patient has nonobstructing bilateral calyx jarrod culi, greater on the left. Left ureter is not dilated there is stranding along the course of the left ureter which could indicat e a recently passed stone or infectious/ inflammatory change. Thickened shaggy urinary bladder pruitt would suggest cystitis. This needs correlation with clinical a nd laboratory findings. Lobulated contour anterior upper pole left kidney. This is probably normal isodense lobulation. An is odense mass, while less likely, cannot be excluded. Cholelithiasis Isodense masses and pyelonephritis are not excluded on stone protocol technique.
--- NOTE | 2022-05-04 21:34 | P.PN ---
Brief Renal note (chart review only) Pt is a clinic pt of Dr. Cevallos, last seen this fall, Cr level then stable at ~ 1.5 mg/dl. Pt found to have renal failure on routine labs done earlier in the day and advised to proceed to the ER immediately but did not do so until Dr. Cevallos was notified of labs and called pt and again advised him to proceed to the ER. Labs verified and show acute or sub-acute Stage III renal failure of unclear etiology, no evelio hydronephrosis/obstructive uropathy noted although pt may have passed stone recently. Will put in fletcher for strict output monitoring. Spoke with Dr. Aranda who has administered medical washout therapy, repeat k in a few hours. Will place on bicarb based IVF for the large bicarb deficit. If pt is oliguric and no improvement seen in metab profile, pt will require [employer] HELPER/HD. Mio Camargo MD, MARC
[2022-05-04] MEDS: D5W IV SCH ×2 (22:00)
[2022-05-04] MEDS: NA BICARB IV SCH ×2 (22:00)
[2022-05-04] MEDS ORDERED: CEFTRIAXONE 1000 MG/VIAL ONE (22:19)
[2022-05-04] MEDS ORDERED: FUROSEMIDE 100 MG/10 ML VIAL IV ONE (22:19)
[2022-05-04] MEDS ORDERED: INSULIN -REGULAR HUMAN 50 UNIT/0.5 ML ML ONE (22:36)
[2022-05-04] MEDS ORDERED: CALCIUM GLUCONATE 1 GM IVPB 1 GM/50 ML BAG IV ONE (22:37)
[2022-05-04] MEDS ORDERED: SODIUM BICARB 50 MEQ/50ML VIAL ONE (22:37)
[2022-05-04] MEDS ORDERED: D5W 1,000 ML IV ONE (22:37)
[2022-05-04] MEDS ORDERED: D10W 250 ML IV ONE (22:38)
--- NOTE | 2022-05-04 23:00 | P.HP ---
Certification for Inpatient Patient admitted to: Inpatient With expected LOS: >2 Midnights Patient will require the following post-hospital care: None Practitioner: I am a practitioner with admitting privileges, knowledge of patient current condition, hospital course, and medical plan of care. Services: Services provided to patient in accordance with Admission requirements found in Title 42 Section 412.3 of the Code of Federal Regulations <Arpit Du - Last Filed: 05/04/22 22:55> Patient History Date of Service: 05/04/22 Reason for admission: Acute renal failure History of Present Illness: 71-year-old male with history of atrial fibrillation/atrial flutter on chronic anticoagulation, diabetes mellitus type [id number], hypertension presents emergency department with chief complaint of abnormal labs. 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 Rogers but he had preoperative labs which suggested he was in kidney failure and was referred to the emergency department. Patient was evaluated here in the emergency department his labs did demonstrate acute renal failure with a creatinine of 13.2, GFR of 4 potassium of 6.0 bicarb 12, BUN 113 BNP 26,929 hemoglobin 12.3 hematocrit 36.1. Nephrology was contacted while patient was the emergency department recommended and ordered bicarb drip along with medications for reversal of hyperkalemia which were administered. Will admit for acute renal failure. - Past Medical/Surgical History -: Diabetes mellitus type 2not insulin-dependent -: Hypertension -: Atrial fibrillation/flutter on chronic anticoagulation -: Eye surgeries Psychosocial/ Personal History: Patient lives at home, alone works in [employer]. - Family History Brother -: Cancer Father -: Cancer - Social History Smoking Status: Never smoker Alcohol use: No CD- Drugs: No Caffeine use: Yes Place of Residence: Home <Arpit Du - Last Filed: 05/04/22 22:55> Date of Service: 05/05/22 <Mo Armas - Last Filed: 05/05/22 13:22> Allergies No Known Allergies Allergy (Unverified 05/04/22 11:22) Review of Systems 10-point ROS is otherwise unremarkable Genitourinary: Other (Decreased urinary output) <Arpit Du - Last Filed: 05/04/22 22:55> Physical Examination - Physical Exam General: Alert, In no apparent distress, Oriented x3 HEENT: Atraumatic, PERRLA, Mucous membr. moist/pink, EOMI, Sclerae nonicteric Neck: Supple, 2+ carotid pulse no bruit, No LAD, Without JVD or thyroid ab normality Respiratory: Clear to auscultation bilaterally, Normal air movement Cardiovascular: Normal S1 S2, Irregular heart rate/rhythm Gastrointestinal: Normal bowel sounds, No tenderness Musculoskeletal: No tenderness Integumentary: No rashes Neurological: Normal gait, Normal speech, Normal strength at 5/5 x4 extr, Normal tone, Normal affect - Studies Laboratory Data (last 24 hrs) 05/04/22 19:56: PT 12.4, INR 1.13 05/04/22 19:56: WBC 6.80, Hgb 12.3 L, Hct 36.1 L, Plt Count 168 05/04/22 19:56: Sodium 136, Potassium 6.0 H*, BUN 119 H, Creatinine 13.20 H*, Glucose 107 H, Uric Acid 10.3 H, Magnesium 1.7 L, Total Bilirubin 0.6, AST 21, ALT 38, Alkaline Phosphatase 73, Lipase 385 05/04/22 19:38: Uric Acid Cancelled <Arpit Du - Last Filed: 05/04/22 22:55> - Studies Laboratory Data (last 24 hrs) 05/04/22 19:56: PT 12.4, INR 1.13 05/04/22 19:56: WBC 6.80, Hgb 12.3 L, Hct 36.1 L, Plt Count 168 05/04/22 19:56: Sodium 136, Potassium 6.0 H*, BUN 119 H, Creatinine 13.20 H*, Glucose 107 H, Uric Acid 10.3 H, Magnesium 1.7 L, Total Bilirubin 0.6, AST 21, ALT 38, Alkaline Phosphatase 73, Lipase 385 05/04/22 19:38: Uric Acid Cancelled <Mo Armas - Last Filed: 05/05/22 13:22> Assessment and Plan - Plan Assessment: Acute renal failure with hyperkalemia Diabetes mellitus type [id number] Atrial fibrillation/atrial flutter on chronic anticoagulation therapy Hypertension Plan: Acute renal failure with hyperkalemia: Nephrology consulted, CT stone protocol negative for obstructing findings. Continue bicarb drip, renal ultrasound in the morning. Given potassium reversal agents in the ED, will recheck potassium tonight. N.p.o. after midnight in case patient does not have significant renal recovery and requires dialysis catheter placement. Diabetes mellitus type [id number]: Hold metformin, A1c in the morning. Atrial fibrillation/atrial flutter on chronic anticoagulation therapy: Hold Eliquis given possibility of surgical procedure in the morning, patient takes 2.5 mg daily he reports that he takes more than that he has occasional rectal bleeding. Hypertension: Hold losartan/hydrochlorothiazide given acute renal failure. Blood pressure appropriate at this time will monitor blood pressure throughout hospitalization. Adjust medications. DVT PPX:SCDs Code status:Full Discharge Plan: Home Plan to discharge in: Greater than 2 days - Advance Directives Does patient have a Living Will: No Does patient have a Durable POA for Healthcare: No - Code Status/Comfort Care Code Status Assessed: Yes (Full code) Critical Care: No Time Spent Managing Pts Care (In Minutes): 70 <Arpit Du - Last Filed: 05/04/22 22:55> Physician Review: Patient Assessed, Agree with Above Assessment and Plan <Mo Armas - Last Filed: 05/05/22 13:22>
[2022-05-05] MEDS ORDERED: ONDANSETRON 4 MG/2 ML VIAL IV PRN (00:57)
[2022-05-05 01:10] VITALS: BMI 32.5
[2022-05-05 05:03] LABS: Absolute Lymphocytes (CBC) 0.8 K/uL (0.7-4.9); Hematocrit 33.3 % (39.6-49.0); Lymphocytes % 13.2 % (15.3-44.8); MCV 97.2 fL (80-100); MPV 8.4 fL (7.6-11.3); RBC Red Blood Cell Count 3.43 M/uL (4.33-5.43)
[2022-05-05] MEDS ORDERED: METOPROLOL TAR 25 MG TAB ONE (05:56)
[2022-05-05] MEDS: METOPROLOL TAR 25 MG TAB PO SCH (06:00)
[2022-05-05 06:11] LABS: Albumin 3.3 g/dL (3.4-5.0); Bilirubin Total 0.6 mg/dL (0.2-1.0); Magnesium 1.7 mg/dL (1.8-2.4); Potassium 4.4 mmol/L (3.5-5.1); Protein, Total 6.8 g/dL (6.4-8.2); Thyroid Stimulating Hormone 2.94 uIU/mL (0.360-3.740)
[2022-05-05] MEDS: INSULIN -REGULAR HUMAN 50 UNIT/0.5 ML ML SQ SCH ×4 (07:30→21:00)
--- NOTE | 2022-05-05 07:41 | RAD REPORT ---
EXAM DESCRIPTION: US - Renal Ultrasound-Complete - 05/05/2022 7:15 am CLINICAL HISTORY: arf COMPARISON: Stone Protocol dated 05/04/2022None. FINDINGS: The right kidney measures 12.0 x 5.9 x 6.6 cm. The left kidney measures 12.6 x 7.0 x 4.8 cm. Renal cortical thinning is evident. Parenchymal echogenicity is only slightly increased. There is no hydronephrosis of either kidney. A 2.2 centimeter exophytic cyst is present lateral right kidney. This is the correlate to the suspected high protein content cyst on the CT study. This cyst has no w orrisome characteristics. An 11 millimeter cyst is present in the lower pole of the left kidney. The upper pole of the left kidney was difficult to visualize due to limited acoustic window. The upper po le of the left kidney was the area of concern on the CT study. Urinary bladder assessment was limited. IMPRESSION: The upper pole of the left kidney was poorly visualized due to limited sonographic acous tic window. Upper pole of the left kidney was the area of prominent lobulation noted on the CT study. Bilateral renal cortical thinning and increased cortical echogenicity consistent with underlying medi jarrod renal disease. The hyperdense small mass the right kidney is simple cyst characteristics at sonography. This is a be nign high protein content cyst. Due to the poor visualization, continued follow-up of the left kidney is needed. Repeat CT imaging co uld be performed with contrast when the patient has renal function allows. MRI imaging, even if perfo rmed without contrast, could also be used to evaluate the upper pole left kidney.
[2022-05-05] MEDS ORDERED: INFLUENZA VACCINE (for 6+ mo) 0.5 ML DOSE IMVAC ONE (08:00)
[2022-05-05] MEDS: NA BICARB IV SCH ×2 (08:00)
[2022-05-05] MEDS: D5W IV SCH ×2 (08:00)
[2022-05-05] MEDS ORDERED: PNEUMOCOCCAL VACCINE 0.5 ML IMVAC ONE (08:00)
--- NOTE | 2022-05-05 10:15 | P.CNS ---
Date of Consult: 05/05/22 Reason for Consult: INGRID/ CKD Requesting Physician: Mo Armas Primary Care Provider: Dr. Ibrahim Chief Complaint: Acute renal failure History of Present Illness: 71-year-old male with history of atrial fibrillation/atrial flutter on chronic anticoagulation, diabetes mellitus type [id number], hypertension presents emergency department with chief complaint of abnormal labs. 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 Rogers but he had preoperative labs which suggested he was in kidney failure and was referred to the emergency department. Patient was evaluated here in the emergency department his labs did demonstrate acute renal failure with a creatinine of 13.2, GFR of 4 potassium of 6.0 bicarb 12, BUN 113 BNP 26,929 hemoglobin 12.3 hematocrit 36.1. Nephrology was contacted while patient was the emergency department recommended and ordered bicarb drip along with medications for reversal of hyperkalemia which were administered. Will admit for acute renal failure. 19:47 This 71 yrs old Male presents to ER via Ambulatory with complaints of iglesia Abnormal Lab Results. 19:47 sent for BAD LABS. Onset: The symptoms/episode began/occurred 3 day(s) ago. Severity of iglesia symptoms: At their worst the symptoms were mild in the emergency department the symptoms are unchanged. The patient has not experienced similar symptoms in the past. He reports passing a kidney stone about a month ago after several hours of pain. He reports drinking lot of water and milk. He denies NSAIDs. He denies any difficulty with urination. 7-10 days ago he developed decreased urine output with worsening edema. He states that his urine output and edema improved over the last few days. He reports several weeks of dyspnea on exertion. Allergies No Known Allergies Allergy (Unverified 05/04/22 11:22) Home medications list reviewed: Yes - Past Medical/Surgical History Diabetic: Yes -: Diabetes mellitus type 2not insulin-dependent -: Hypertension -: Atrial fibrillation/flutter on chronic anticoagulation -: CKD III (Dr. Cevallos) -: Eye surgeries Psychosocial/ Personal History: Patient lives at home, alone works in [employer]. - Family History Brother Medical History: Cancer Father Medical History: Cancer - Social History Alcohol use: Yes CD- Drugs: No Caffeine use: No Place of Residence: Home Review of Systems 10-point ROS is otherwise unremarkable General: Weakness Respiratory: SOB with Excertion Cardiovascular: Edema Physical Examination Temp Pulse Resp BP Pulse Ox 97.3 F 69 16 106/61 98 05/05/22 04:00 05/05/22 06:00 05/05/22 04:00 05/05/22 06:00 05/05/22 04:00 General: In no apparent distress, Oriented x3, Cooperative HEENT: Atraumatic Neck: Supple Respiratory: Clear to auscultation bilaterally Cardiovascular: Regular rate/rhythm, Edema Gastrointestinal: Soft and benign, Non-distended Musculoskeletal: No clubbing, No contractures Integumentary: No rashes, No cyanosis Neurological: Normal speech Laboratory Data (last 24 hrs) 05/04/22 19:56: PT 12.4, INR 1.13 05/04/22 19:56: WBC 6.80, Hgb 12.3 L, Hct 36.1 L, Plt Count 168 05/04/22 19:56: Sodium 136, Potassium 6.0 H*, BUN 119 H, Creatinine 13.20 H*, Glucose 107 H, Uric Acid 10.3 H, Magnesium 1.7 L, Total Bilirubin 0.6, AST 21, ALT 38, Alkaline Phosphatase 73, Lipase 385 05/04/22 19:38: Uric Acid Cancelled Imagings Data: EXAM DESCRIPTION: CT - Stone Protocol - 05/04/2022 8:54 pm CLINICAL HISTORY: Acute kidney failure, possible obstruction COMPARISON: <Comparisons> TECHNIQUE: Axial 3 mm thick images were obtained without oral or IV contrast. The [id number] spans the entirety of the system including uppermost abdomen and lung bases. All CT scans are performed using dose optimization technique as appropriate and may include automated exposure control or mA/KV adjustment according to patient size. FINDINGS: No hydronephrosis is present in either kidney. Parapelvic cysts are present. No obstructing calculi seen. Patient has bilateral nonobstructing calyx calculi, more prominent on the left. An exophytic 2 centimeter homogeneous slightly hyperdense mass projects from the lateral mid right kidney matching the 2020 study. This is believed to be an incidental high protein content cyst. There is a lobulated or prominent contour anterior upper pole left kidney approximately 3 cm in size. This is more prominent than on the prior studies. This may still be isodense lobulated parenchyma. An isod ense mass, while lower in likelihood, cannot be excluded. Isodense masses and pyelonephritis are not excluded. There is nonspecific stranding along the course of the left ureter down to the UVJ. Uri nary bladder is only partially filled. Bladder pruitt appear thickened and edematous with shaggy margins. No prostate abnormality. Imaged portions of the liver, spleen and pancreas show no suspicious findings on non-contrast imaging. Cholelithiasis present. Gallbladder is contracted which accentuates wall thickness. No biliary tree dilatation. No suspicious bowel findings. No mass or bulky lymphadenopathy. Bilateral small fat filled inguinal hernias are present. No free air, free fluid or pneumatosis. No significant bony abnormality. IMPRESSION: No hydronephrosis or obstructing calculi. Patient has nonobstructing bilateral calyx calculi, greater on the left. Left ureter is not dilated there is stranding along the course of the left ureter which could indicate a recently passed stone or infectious/ inflammatory change. Thickened shaggy urinary bladder pruitt would suggest cystitis. This needs correlation with clinical and laboratory findings. Lobulated contour anterior upper pole left kidney. This is probably normal isodense lobulation. An isodense mass, while less likely, cannot be excluded. Cholelithiasis Isodense masses and pyelonephritis are not excluded on stone protocol technique. EXAM DESCRIPTION: RAD - Chest Single View - 05/04/2022 8:05 pm CLINICAL HISTORY: COUGH COMPARISON: Portable 12/02/2020 TECHNIQUE: AP portable chest image was obtained 05/04/2022 8:05 pm . FINDINGS: No peripheral mass or consolidation. Cardiomegaly is present accentuated by pericardial fat pads. No acute failure or volume overload findings. No measurable pleural effusion and no pneumothorax. No acute bony abnormality seen. No acute aortic findings suspected. IMPRESSION: No acute lung parenchymal process. Cardiomegaly without other findings of failure or volume overload. EXAM DESCRIPTION: US - Renal Ultrasound-Complete - 05/05/2022 7:15 am CLINICAL HISTORY: arf COMPARISON: Stone Protocol dated 05/04/2022None. FINDINGS: The right kidney measures 12.0 x 5.9 x 6.6 cm. The left kidney measures 12.6 x 7.0 x 4.8 cm. Renal cortical thinning is evident. Parenchymal echogenicity is only slightly increased. There is no hydronephrosis of either kidney. A 2.2 centimeter exophytic cyst is present lateral right kidney. This is the correlate to the suspected high protein content cyst on the CT study. This cyst has no worrisome characteristics. An 11 millimeter cyst is present in the lower pole of the left kidney. The upper pole of the left kidney was difficult to visualize due to limited acoustic window. The upper pole of the left kidney was the area of concern on the CT study. Urinary bladder assessment was limited. IMPRESSION: The upper pole of the left kidney was poorly visualized due to limited sonographic acoustic window. Upper pole of the left kidney was the area of prominent lobulation noted on the CT study. Bilateral renal cortical thinning and increased cortical echogenicity consistent with underlying medical renal disease. The hyperdense small mass the right kidney is simple cyst characteristics at sonography. This is a benign high protein content cyst. Due to the poor visualization, continued follow-up of the left kidney is needed. Repeat CT imaging could be performed with contrast when the patient has renal function allows. MRI imaging, even if performed without contrast, could also be used to evaluate the upper pole left kidney. Conclusions/Impression: Stage III INGRID of unclear etiology CKD III with proteinuria -No NSAIDs -Continue fletcher and monitor I/O -Arrange for kidney biopsy rad -Check Hepatitis panel Nephrolithiasis, non-obstructive -Maintain hydration Hyperkalemia, resolved -Renal diet Metabolic Acidosis -Continue IV bicarb Hypomagnesemia -Replete prn Hyperuricemia HTN with CKD -Continue metoprolol DM II with CKD -RISS Anemia in chronic illness -Monitor H&H -Retacrit prn CKD MBD Hypocalcemia HyperPO4 -Start Renagel -Start Ergo Case reviewed with Dr. Armas Thank you kindly for the consultation
[2022-05-05] MEDS: D5W 1,000 ML with NA BICARB 8.4% 150 MEQ IV SCH ×4 (11:00→22:30)
[2022-05-05 12:40] LABS: Phosphorus 8.4 mg/dL (2.5-4.9)
--- NOTE | 2022-05-05 13:28 | P.PN ---
Subjective Date of Service: 05/05/22 Chief Complaint: Acute renal failure No acute events overnight. He reports that he has gradually been gaining weight and he has noticed decreased urine output. He denies any dysuria, frequency, pyuria, or hematuria. Review of Systems 10-point ROS is otherwise unremarkable General: Other (weight gain) Genitourinary: Other (decreased urine output) Physical Examination - Vital Signs Temperature: 98.1 F Blood Pressure: 99/56 Pulse: 63 Respirations: 20 Pulse Ox (%): 96 - Physical Exam General: Alert, In no apparent distress, Oriented x3 HEENT: Atraumatic, Mucous membr. moist/pink, EOMI, Sclerae nonicteric Neck: JVD not distended Respiratory: Clear to auscultation bilaterally, Normal air movement Cardiovascular: No edema, Regular rate/rhythm, Normal S1 S2, No gallops, No rubs, No murmurs Gastrointestinal: Normal bowel sounds, Soft and benign, Non-distended, No tenderness, No rebound, No guarding Musculoskeletal: No clubbing Integumentary: No rashes Neurological: Normal speech, Cranial nerves 3-12 intact, Normal affect - Studies Laboratory Data (last 24 hrs) 05/04/22 19:56: PT 12.4, INR 1.13 05/04/22 19:56: WBC 6.80, Hgb 12.3 L, Hct 36.1 L, Plt Count 168 05/04/22 19:56: Sodium 136, Potassium 6.0 H*, BUN 119 H, Creatinine 13.20 H*, Glucose 107 H, Uric Acid 10.3 H, Magnesium 1.7 L, Total Bilirubin 0.6, AST 21, ALT 38, Alkaline Phosphatase 73, Lipase 385 05/04/22 19:38: Uric Acid Cancelled Assessment And Plan - Plan # KDIGO Stage III Acute Kidney Injury on Chronic Kidney Disease Stage III # High Anion Gap Metabolic Acidosis due to above # Hyperkalemia # Bilateral Nonobstructive Nephrolithiasis # Lateral Right Mid-Kidney Hyperdense Mass (suggestive of High Protein Cyst) # Left Upper Pole Left Kidney Mass (3 cm) - Consulted Nephrology and spoke with Dr. Cevallos - recommendations appreciated - Bicarbonate drip per Neph - Creatinine = 13.2 -> 12.6 (baseline creatinine ~1.9) - Urinalysis = trace blood, 1+ total protein - Renal Ultrasound = "the upper pole of the left kidney was poorly visualized du e to limited sonographic acoustic window. Upper pole of the left kidney was the area of prominent lobulation noted on the CT study. Bilateral renal cortical thinning and increased cortical echogenicity consistent with underlying medical renal disease. The hyperdense small mass the right kidney is simple cyst characteristics at sonography. This is a benign high protein content cyst. Due to the poor visualization, continued follow-up of the left kidney is needed. Repeat CT imaging could be performed with contrast when the patient has renal function allows. MRI imaging, even if performed without contrast, could also be used to evaluate the upper pole left kidney." - CT abdomen/pelvis - "thickened shaggy urinary bladder pruitt would suggest cystitis. This needs correlation with clinical and laboratory findings. Lobulated contour anterior upper pole left kidney. This is probably normal isodense lobulation. An isodense mass, while less likely, cannot be excluded. Cholelithiasis. Isodense masses and pyelonephritis are not excluded on stone protocol technique." - Urinalysis is not consistent with UTI - Monitor creatinine and urine output - Renally dose medications - Follow-up renal lesions with PCP +/- Urology # Type II Diabetes Mellitus - Hgb A1c = 6.5 % - Correction scale insulin # Hypertension - Hold home losartan-hydrochlorothiazide given INGRID # Atrial Fibrillation/Flutter - Continue home metoprolol - Home apixaban on hold pending Nep recs regarding TDC placement +/- renal biopsy Mo Armas M.D.
[2022-05-05 14:03] LABS: Specific Gravity 1.008 (1.005-1.030); Transitional Epithelial <5 /HPF (None Seen); Urine Bacteria <20 /HPF (<20); Urine Bilirubin NEGATIVE (Negative); Urine Blood 2+ (Negative); Urine Clarity Turbid (Clear); Urine Color Colorless (Yellow); Urine Glucose TRACE (Negative); Urine Mucus Slight /HPF (None Seen); Urine Protein TRACE (Negative); Urine Urobilinogen Normal (Normal); Urine WBC Clump Few /HPF (None Seen)
[2022-05-05 14:17] LABS: UR MICROALBUMIN 8.8 mg/dL (< 1.9); UR PROTEIN 27.5 mg/dL (<11.9); Urine Protein/Creatinine Ratio 0.4 ratio (<0.15)
--- NOTE | 2022-05-05 16:01 | EKG ---
Test Date: 2022-05-04 Test Time: 19:44:15 Biometrics Head: MEASUREMENT RESULTS: Intervals: Rate: 76 [place]: QRSD: 68 QT: 378 QTc: 425 [place]: P: OK: QRS: 66 T: 43 INTERPRETIVE STATEMENTS: Atrial flutter with variable AV block Low voltage QRS Cannot rule out Anteroseptal infarct, age undetermined Abnormal ECG Compared to ECG 12/02/2020 16:10:29 No significant changes Electronically Signed On 05-05-22 16:00:02 CENTRIFUGAL CHILLER TECHNICIAN by Rudy Peoples
[2022-05-05] MEDS ORDERED: INSULIN -REGULAR HUMAN 50 UNIT/0.5 ML ML ONE (17:24)
[2022-05-06] MEDS: D5W 1,000 ML with NA BICARB 8.4% 150 MEQ IV SCH ×4 (01:38→10:00)
[2022-05-06 03:30] LABS: Absolute Lymphocytes (CBC) 0.8 K/uL (0.7-4.9); Hematocrit 30.2 % (39.6-49.0); Lymphocytes % 13.2 % (15.3-44.8); MCV 95.9 fL (80-100); MPV 8.1 fL (7.6-11.3); RBC Red Blood Cell Count 3.14 M/uL (4.33-5.43)
[2022-05-06 04:05] LABS: Albumin 3.1 g/dL (3.4-5.0); Bilirubin Total 0.7 mg/dL (0.2-1.0); Potassium 3.4 mmol/L (3.5-5.1); Protein, Total 6.4 g/dL (6.4-8.2)
[2022-05-06 04:08] LABS: Magnesium 1.4 mg/dL (1.6-2.4)
[2022-05-06] MEDS ORDERED: MAGNESIUM SULFATE 1 gm IVPB 1 GM/100 ML BAG IV ONE (04:53)
[2022-05-06] MEDS: METOPROLOL TAR 25 MG TAB PO SCH (05:43)
[2022-05-06 05:54] LABS: UR CL RANDOM 12 mmol/L (25-40)
[2022-05-06 05:55] LABS: UR POTASSIUM < 6.0 mmol/L (20-40); UR SODIUM < 15 mmol/L (27-287)
[2022-05-06 06:00] LABS: Specific Gravity < 1.005 (1.005-1.030); Urine Bilirubin NEGATIVE (Negative); Urine Blood Negative (Negative); Urine Clarity Clear (Clear); Urine Color Colorless (Yellow); Urine Glucose NEGATIVE (Negative); Urine Protein NEGATIVE (Negative); Urine RBC <5 /HPF (None Seen); Urine Urobilinogen Normal (Normal); Urine pH 5.5 (5.0-7.0)
[2022-05-06] MEDS ORDERED: Magnesium Sulfate 2gm IVPB 2 G/50 ML BAG IV ONE (06:40)
[2022-05-06] MEDS: INSULIN -REGULAR HUMAN 50 UNIT/0.5 ML ML SQ SCH ×4 (07:30→20:49)
[2022-05-06] MEDS: SODIUM BICARB 325 MG TAB PO SCH ×3 (08:00→17:21)
[2022-05-06] MEDS ORDERED: SEVELAMER CARBONATE 800 MG TABLET PO SCH (08:00)
[2022-05-06] MEDS: SEVELAMER CARBONATE 800 MG TABLET PO SCH ×3 (08:00→17:21)
[2022-05-06] MEDS: DRISDOL (VITAMIN D=ERGOCALCIFEROL) 50000 UNIT CAP PO SCH (08:06)
[2022-05-06] MEDS: DOCUSATE NA 100 MG CAP PO SCH ×2 (08:06→20:49)
[2022-05-06] MEDS ORDERED: FENTANYL CITR 100 MCG/2 ML ONE (09:40)
[2022-05-06] MEDS ORDERED: MIDAZOLAM HCL 2 MG/2 ML INJ ONE (09:40)
[2022-05-06] MEDS ORDERED: NALOXONE 0.4 MG/ML VIAL ONE (09:41)
[2022-05-06] MEDS ORDERED: FLUMAZENIL 0.1 MG/ML (5 mL VIAL) IV ONE (09:41)
[2022-05-06] MEDS ORDERED: NA CHLORIDE 0.9% 500 ML ONE (09:42)
--- NOTE | 2022-05-06 11:54 | P.PN ---
Nephrology note (S) Pt seen s/p renal biopsy, tolerated procedure well, no apparent immediate complications noted, discussed post biopsy instructions and plan. No complaints of acute abd or back pain, has not voided since procedure General: In no apparent distress, Oriented x3, Cooperative HEENT: Atraumatic, sclera anicteric Neck: Supple Respiratory: Clear to auscultation bilaterally, no rhonchi Cardiovascular: Regular rate/rhythm, No LE edema Gastrointestinal: Soft and benign, Non-distended Musculoskeletal: No clubbing, No contractures Integumentary: No rashes, No cyanosis Neurological: Normal speech, awake, alert non focal Laboratory Data (last 24 hrs) Reviewed Conclusions/Impression: Stage III acute or sub acute renal failure of unclear etiology underlying CKD III unspecified with proteinuria -Differential includes ATN, idiopathic AIN, possible GN, UA yesterday had some abnormal findings but not on the repeat. Non oliguric. 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 Await path, f/u on serologic studies. Abnormal diagnostic imaging of the kidney, left. Acquired cyst of kidney. Calculus of kidney -Possible passed stone recently, no hydro Hyperkalemia, resolved -Renal diet Metabolic Acidosis -Bicarb deficit improved Hyperphosphatemia -Placed on binders, clear with HD if levels trend any higher Mio Camargo MD, FASN
[2022-05-06] MEDS ORDERED: Ringers Lactate 1,000 ML IV SCH (12:00)
--- NOTE | 2022-05-06 12:31 | RAD REPORT ---
EXAM DESCRIPTION: CT - Renal Biopsy CT - 05/06/2022 12:01 pm CLINICAL HISTORY: INGRID with Cr increased 1.5 to >13 COMPARISON: No comparisons FINDINGS: Preoperative diagnosis: Acute renal failure Post operative diagnosis: Same Conscious Sedation: 45 minutes of IV conscious sedation was utilized. Fentanyl and midazolam was give n to the patient.. Patient was continuously monitored by nursing staff. Contrast used: NONE Estimated blood loss: less than 5 mL Specimens: 3 x 18 gauge core specimens left kidney The patient was placed prone on the table and the posterior left flank area was prepped and draped in the usual sterile fashion. 1% lidocaine was infiltrated into the subcutaneous tissues for local anes thesia. Under computed tomographic guidance, a 17 gauge introducer was advanced into the inferior lef t kidney. Subsequently, a 18 gauge, 50 cm long, 20 mm throw core biopsy gun was advanced into the inf erior left kidney and 3 cores were obtained. Postprocedure imaging demonstrated no complications. Samples were given to pathology for analysis. Th e patient tolerated the procedure without immediate complication and transferred to the floor in stab le condition. IMPRESSION: Successful CT-guided nonfocal left renal biopsy. 45 minutes of IV conscious sedation was utilized. All CT scans are performed using dose optimization technique as appropriate and may include automated exposure control or mA/KV adjustment according to patient size.
[2022-05-06] MEDS ORDERED: D5W 1,000 ML with NA BICARB 8.4% 150 MEQ IV SCH ×2 (13:00)
--- NOTE | 2022-05-06 13:46 | ECHO ---
HEIGHT: 5 ft 8 in WEIGHT: 212 lb 2 oz DATE OF STUDY: 05/06/[address]: Richard Cevallos DO 2-DIMENSIONAL: YES M.MODE: YES DOPPLER: YES COLOR FLOW: YES TDS: PORTABLE: YES DEFINITY: BUBBLE STUDY: DIAGNOSIS: DYSPNEA ON EXERTION, CONGESTIVE HEART FAILURE CARDIAC HISTORY: CATHERIZATION: SURGERY: PROSTHETIC VALVE: PACEMAKER: MEASUREMENTS (cm) DIASTOLIC (NORMALS) SYSTOLIC (NORMALS) IVSd 0.9 (0.6-1.2) LA Diam 3.6 (1.9-4.0) LVEF 69% LVIDd 4.7 (3.5-5.7) LVIDs 2.9 (2.0-3.5) %FS 39% LVPWd 1.3 (0.6-1.2) Ao Diam 2.9 (2.0-3.7) 2 DIMENSIONAL ASSESSMENT: RIGHT ATRIUM: NORMAL LEFT ATRIUM: NORMAL RIGHT VENTRICLE: NORMAL LEFT VENTRICLE: NORMAL TRICUSPID VALVE: NORMAL MITRAL VALVE: NORMAL PULMONIC VALVE: NORMAL AORTIC VALVE: NORMAL PERICARDIAL EFFUSION: NONE AORTIC ROOT: NORMAL LEFT VENTRICULAR WALL MOTION: NORMAL, ATRIAL FIBRILLATION DOPPLER/COLOR FLOW: MILD MITRAL REGURGITATION COMMENTS: 1. NORMAL LEFT VENTRICULAR EJECTION FRACTION GREATER THAN 60% 2. NORMAL WALL MOTION 3. MILD MITRAL REGURGITATION 4. ATRIAL FIBRILLATION TECHNOLOGIST: PRUDENCIO DENNY
[2022-05-06 14:26] LABS: Hematocrit 31.2 % (39.6-49.0)
--- NOTE | 2022-05-06 17:51 | P.PN ---
Subjective Date of Service: 05/06/22 Primary Care Provider: Dr. Ibrahim Chief Complaint: Acute renal failure No acute events overnight. He is doing well this morning. He denies any particular complaints this morning. Plan for renal biopsy today. Review of Systems 10-point ROS is otherwise unremarkable Physical Examination - Vital Signs Temperature: 96.8 F Blood Pressure: 125/69 Pulse: 58 Respirations: 18 Pulse Ox (%): 98 - Studies Microbiology Data (last 24 hrs): 05/04/22 21:24 Clean Catch Urine Davis Count - Final No growth. 05/04/22 21:24 Clean Catch Urine - Final No growth. Assessment And Plan - Plan - Physical Exam General: Alert, In no apparent distress, Oriented x3 HEENT: Atraumatic, Mucous membr. moist/pink, EOMI, Sclerae nonicteric Neck: JVD not distended Respiratory: Clear to auscultation bilaterally, Normal air movement Cardiovascular: No edema, Regular rate/rhythm, Normal S1 S2, No gallops, No rubs, No murmurs Gastrointestinal: Normal bowel sounds, Soft and benign, Non-distended, No tenderness, No rebound, No guarding Musculoskeletal: No clubbing Integumentary: No rashes Neurological: Normal speech, Cranial nerves 3-12 intact, Normal affect # KDIGO Stage III Acute Kidney Injury on Chronic Kidney Disease Stage III # High Anion Gap Metabolic Acidosis due to above # Hyperkalemia # Bilateral Nonobstructive Nephrolithiasis # Lateral Right Mid-Kidney Hyperdense Mass (suggestive of High Protein Cyst) # Left Upper Pole Left Kidney Mass (3 cm) - Consulted Nephrology and spoke with Dr. Cevallos - recommendations appreciated - Bicarbonate drip per Neph - Creatinine = 13.2 -> 12.6 -> 11.9 (baseline creatinine ~1.9) - Urinalysis = trace blood, 1+ total protein - Renal Ultrasound = "the upper pole of the left kidney was poorly visualized due to limited sonographic acoustic window. Upper pole of the left kidney was the area of prominent lobulation noted on the CT study. Bilateral renal cortical thinning and increased cortical echogenicity consistent with underlying medical renal disease. The hyperdense small mass the right kidney is simple cyst characteristics at sonography. This is a benign high protein content cyst. Due to the poor visualization, continued follow-up of the left kidney is needed. Repeat CT imaging could be performed with contrast when the patient has renal function allows. MRI imaging, even if performed without contrast, could also be used to evaluate the upper pole left kidney." - CT abdomen/pelvis - "thickened shaggy urinary bladder pruitt would suggest cystitis. This needs correlation with clinical and laboratory findings. Lobulated contour anterior upper pole left kidney. This is probably normal isodense lobulation. An isodense mass, while less likely, cannot be excluded. Cholelithiasis. Isodense masses and pyelonephritis are not excluded on stone protocol technique." - Urinalysis is not consistent with UTI - Monitor creatinine and urine output - Renally dose medications - Follow-up renal lesions with PCP +/- Urology - Plan for renal biopsy today # Type II Diabetes Mellitus - Hgb A1c = 6.5 % - Correction scale insulin # Hypertension - Hold home losartan-hydrochlorothiazide given INGRID # Atrial Fibrillation/Flutter - Continue home metoprolol - Home apixaban on hold pending renal biopsy +/- TDC placement Mo Armas M.D.
[2022-05-07 03:09] LABS: Absolute Lymphocytes (CBC) 0.8 K/uL (0.7-4.9); Hematocrit 29.8 % (39.6-49.0); Lymphocytes % 13.5 % (15.3-44.8); MCV 95.9 fL (80-100); MPV 8.2 fL (7.6-11.3)
[2022-05-07 03:40] LABS: Albumin 3.1 g/dL (3.4-5.0); Potassium 3.4 mmol/L (3.5-5.1)
[2022-05-07] MEDS: METOPROLOL TAR 25 MG TAB PO SCH (06:03)
[2022-05-07] MEDS: INSULIN -REGULAR HUMAN 50 UNIT/0.5 ML ML SQ SCH ×4 (07:30→21:00)
[2022-05-07] MEDS ORDERED: POTASSIUM CL SA 10 MEQ TAB PO ONE (07:55)
[2022-05-07] MEDS: SODIUM BICARB 325 MG TAB PO SCH ×3 (09:20→16:36)
[2022-05-07] MEDS: SEVELAMER CARBONATE 800 MG TABLET PO SCH ×3 (09:20→16:36)
[2022-05-07] MEDS: DOCUSATE NA 100 MG CAP PO SCH ×2 (09:20→21:51)
--- NOTE | 2022-05-07 13:04 | P.PN ---
Nephrology note (S) Pt tolerated biopsy with no issues, no hematuria, no acute complaints, seen sitting in recliner chair next to bed General: In no apparent distress, Oriented x3, Cooperative HEENT: Atraumatic, sclera anicteric Neck: Supple Respiratory: Clear to auscultation bilaterally, no rhonchi Cardiovascular: Regular rate/rhythm, No LE edema Gastrointestinal: Soft and benign, Non-distended Musculoskeletal: No clubbing, No contractures Integumentary: No rashes, No cyanosis Neurological: Normal speech, awake, alert non focal Laboratory Data (last 24 hrs) Reviewed Conclusions/Impression: Stage III acute or sub acute renal failure of unclear etiology underlying CKD III unspecified with proteinuria -Differential includes ATN, idiopathic AIN, possible GN, UA yesterday had some abnormal findings but not on the repeat. Non oliguric, in fact with good UOP. Metab profile stable so no emergent in dication for CLEANER WALL was felt, no overt uremia, cont to monitor, low treshold to initiate dialysis for metab clearance but as mentioned no plans yet. Await path, f/u on serologic studies. Abnormal diagnostic imaging of the kidney, left. Acquired cyst of kidney. Calculus of kidney -Possible passed stone recently, no hydro. Repeat UA appeared bland Hyperkalemia, resolved -Renal diet Metabolic Acidosis -Bicarb deficit improved Hyperphosphatemia -Placed on binders, repeat level still elevated but lower than prev Mio Camargo MD, EFRENN
--- NOTE | 2022-05-07 18:12 | P.PN ---
Subjective Date of Service: 05/07/22 Primary Care Provider: Dr. Ibrahim Chief Complaint: Acute renal failure No acute events overnight. He is doing well this morning. He tolerated the procedure well, without any major issues. He states that his urine output seems to be low to him. Review of Systems 10-point ROS is otherwise unremarkable Genitourinary: Other (decreased urine output) Physical Examination - Vital Signs Temperature: 97.2 F Blood Pressure: 176/74 Pulse: 53 Respirations: 16 Pulse Ox (%): 98 Assessment And Plan - Plan - Physical Exam General: Alert, In no apparent distress, Oriented x3 HEENT: Atraumatic, Mucous membr. moist/pink, EOMI, Sclerae nonicteric Neck: JVD not distended Respiratory: Clear to auscultation bilaterally, Normal air movement Cardiovascular: No edema, Regular rate/rhythm, Normal S1 S2, No gallops, No rubs, No murmurs Gastrointestinal: Normal bowel sounds, Soft and benign, Non-distended, No tenderness, No rebound, No guarding Musculoskeletal: No clubbing Integumentary: No rashes Neurological: Normal speech, Cranial nerves 3-12 intact, Normal affect # KDIGO Stage III Acute Kidney Injury on Chronic Kidney Disease Stage III # High Anion Gap Metabolic Acidosis due to above # Hyperkalemia # Bilateral Nonobstructive Nephrolithiasis # Lateral Right Mid-Kidney Hyperdense Mass (suggestive of High Protein Cyst) # Left Upper Pole Left Kidney Mass (3 cm) - Consulted Nephrology and spoke with Dr. Camargo - recommendations appreciated - Creatinine = 13.2 -> 12.6 -> 11.9 -> 10.8 (baseline creatinine ~1.9) - Urinalysis = trace blood, 1+ total protein - Renal Ultrasound = "the upper pole of the left kidney was poorly visualized due to limited sonographic acoustic window. Upper pole of the left kidney was the area of prominent lobulation noted on the CT study. Bilateral renal cortical thinning and increased cortical echogenicity consistent with underlying medical renal disease. The hyperdense small mass the right kidney is simple cyst charact eristics at sonography. This is a benign high protein content cyst. Due to the poor visualization, continued follow-up of the left kidney is needed. Repeat CT imaging could be performed with contrast when the patient has renal function allows. MRI imaging, even if performed without contrast, could also be used to evaluate the upper pole left kidney." - CT abdomen/pelvis - "thickened shaggy urinary bladder pruitt would suggest cystitis. This needs correlation with clinical and laboratory findings. Lobulated contour anterior upper pole left kidney. This is probably normal isodense lobulation. An isodense mass, while less likely, cannot be excluded. Cholelithiasis. Isodense masses and pyelonephritis are not excluded on stone protocol technique." - Urinalysis is not consistent with UTI - Monitor creatinine and urine output - Renally dose medications - Follow-up renal lesions with PCP +/- Urology - S/P renal biopsy on 05/06/2022 - awaiting pathology results # Type II Diabetes Mellitus - Hgb A1c = 6.5 % - Correction scale insulin # Hypertension - Hold home losartan-hydrochlorothiazide given INGRID # Atrial Fibrillation/Flutter - Continue home metoprolol - Home apixaban on hold until 05/09/[address] Camargo based on recent biopsy Mo Armas M.D.
[2022-05-08 03:47] LABS: Hematocrit 29.6 % (39.6-49.0); Lymphocytes % 14.8 % (15.3-44.8); MCV 96.2 fL (80-100); MPV 8.5 fL (7.6-11.3); RBC Red Blood Cell Count 3.08 M/uL (4.33-5.43)
[2022-05-08 04:17] LABS: Albumin 3.2 g/dL (3.4-5.0); Phosphorus 6.4 mg/dL (2.5-4.9); Potassium 3.3 mmol/L (3.5-5.1)
[2022-05-08] MEDS: METOPROLOL TAR 25 MG TAB PO SCH (06:36)
[2022-05-08] MEDS: INSULIN -REGULAR HUMAN 50 UNIT/0.5 ML ML SQ SCH ×4 (07:30→21:00)
[2022-05-08] MEDS: SODIUM BICARB 325 MG TAB PO SCH ×3 (09:07→16:33)
[2022-05-08] MEDS: SEVELAMER CARBONATE 800 MG TABLET PO SCH ×3 (09:07→16:34)
[2022-05-08] MEDS: DOCUSATE NA 100 MG CAP PO SCH ×2 (09:07→21:00)
[2022-05-08] MEDS ORDERED: POTASSIUM CL SA 10 MEQ TAB PO ONE (14:40)
--- NOTE | 2022-05-08 14:42 | P.PN ---
Nephrology note (S) Pt continues to report feeling well, no acute complaints, has some questions about held DM/BP meds, was taking Metformin and Losartan/HCTZ at home General: In no apparent distress, Oriented x3, Cooperative HEENT: Atraumatic, sclera anicteric Neck: Supple Respiratory: Clear to auscultation bilaterally, no rhonchi Cardiovascular: Regular rate/rhythm, No LE edema Gastrointestinal: Soft and benign, Non-distended Musculoskeletal: No clubbing, No contractures Integumentary: No rashes, No cyanosis Neurological: Normal speech, awake, alert non focal Laboratory Data (last 24 hrs) Reviewed Conclusions/Impression: Stage III acute or sub acute renal failure of unclear etiology underlying CKD III unspecified with proteinuria -Differential includes ATN, idiopathic AIN, possible GN, UA yesterday had some abnormal findings but not on the repeat. Non oliguric, in fact with good UOP. Metab profile stable so no emergent indication for [employer] was felt, no overt uremia, Cr level v.slowly trending downwards. Cont to monitor, low treshold to initiate dialysis for metab clearance but as mentioned no plans yet. Await path, f/u on serologic studies. Abnormal diagnostic imaging of the kidney, left. Acquired cyst of kidney. Calculus of kidney -Possible passed stone recently, no hydro. Repeat UA appeared bland Hyperkalemia, resolved -Renal diet Metabolic Acidosis -Bicarb deficit improved Hyperphosphatemia -Placed on binders, repeat level still elevated but lower than prev HTN Labile pressures, place on IV Hydralazine PRN for SBP > 160, start CCB if BP remains elevated Mio Camargo MD, MARC
--- NOTE | 2022-05-08 15:56 | P.PN ---
Subjective Date of Service: 05/08/22 Primary Care Provider: Dr. Ibrahim Chief Complaint: Acute renal failure No acute events overnight. He is doing well this morning. He reports no concerns this morning. He reports good urine output today. Waiting for biopsy results. Review of Systems 10-point ROS is otherwise unremarkable Physical Examination - Vital Signs Temperature: 97.3 F Blood Pressure: 123/66 Pulse: 52 Respirations: 16 Pulse Ox (%): 96 Assessment And Plan - Plan - Physical Exam General: Alert, In no apparent distress, Oriented x3 HEENT: Atraumatic, Mucous membr. moist/pink, EOMI, Sclerae nonicteric Neck: JVD not distended Respiratory: Clear to auscultation bilaterally, Normal air movement Cardiovascular: No edema, Regular rate/rhythm, Normal S1 S2, No gallops, No rubs, No murmurs Gastrointestinal: Normal bowel sounds, Soft and benign, Non-distended, No tenderness, No rebound, No guarding Musculoskeletal: No clubbing Integumentary: No rashes Neurological: Normal speech, Cranial nerves 3-12 intact, Normal affect # KDIGO Stage III Acute Kidney Injury on Chronic Kidney Disease Stage III # High Anion Gap Metabolic Acidosis due to above # Hyperkalemia # Bilateral Nonobstructive Nephrolithiasis # Lateral Right Mid-Kidney Hyperdense Mass (suggestive of High Protein Cyst) # Left Upper Pole Left Kidney Mass (3 cm) - Consulted Nephrology and spoke with Dr. Camargo - recommendations appreciated - Creatinine = 13.2 -> 12.6 -> 11.9 -> 10.8 -> 9.84 (baseline creatinine ~1.9) - Urinalysis = trace blood, 1+ total protein - Renal Ultrasound = "the upper pole of the left kidney was poorly visualized due to limited sonographic acoustic window. Upper pole of the left kidney was the area of prominent lobulation noted on the CT study. Bilateral renal cortical thinning and increased cortical echogenicity consistent with underlying medical renal disease. The hyperdense small mass the right kidney is simple cyst characteristics at sonography. This is a benign high protein content cyst. Due to the poor visualization, continued follow-up of the left kidney is needed. Repeat CT imaging could be performed with contrast when the patient has renal function allows. MRI imaging, even if performed without contrast, could also be used to evaluate the upper pole left kidney." - CT abdomen/pelvis - "thickened shaggy urinary bladder pruitt would suggest cystitis. This needs correlation with clinical and laboratory findings. Lobulated contour anterior upper pole left kidney. This is probably normal isodense lobulation. An isodense mass, while less likely, cannot be excluded. Cholelithiasis. Isodense masses and pyelonephritis are not excluded on stone protocol technique." - Urinalysis is not consistent with UTI - Monitor creatinine and urine output - Renally dose medications - Follow-up renal lesions with PCP +/- Urology - S/P renal biopsy on 05/06/2022 - awaiting pathology results # Type II Diabetes Mellitus - Hgb A1c = 6.5 % - Correction scale insulin # Hypertension - Hold home losartan-hydrochlorothiazide given INGRID # Atrial Fibrillation/Flutter - Continue home metoprolol - Home apixaban on hold until 05/09/[address] Camargo based on recent biopsy Mo Armas M.D.
[2022-05-09 03:38] LABS: Absolute Lymphocytes (CBC) 0.9 K/uL (0.7-4.9); Hematocrit 29.1 % (39.6-49.0); Lymphocytes % 13.2 % (15.3-44.8); MCV 96.4 fL (80-100); MPV 8.5 fL (7.6-11.3); RBC Red Blood Cell Count 3.02 M/uL (4.33-5.43)
[2022-05-09 04:16] LABS: Albumin 3.2 g/dL (3.4-5.0); Phosphorus 5.8 mg/dL (2.5-4.9); Potassium 3.7 mmol/L (3.5-5.1)
[2022-05-09] MEDS: METOPROLOL TAR 25 MG TAB PO SCH (06:00)
[2022-05-09] MEDS: INSULIN -REGULAR HUMAN 50 UNIT/0.5 ML ML SQ SCH ×4 (07:30→21:00)
[2022-05-09] MEDS: SEVELAMER CARBONATE 800 MG TABLET PO SCH ×3 (08:42→16:55)
[2022-05-09] MEDS: DOCUSATE NA 100 MG CAP PO SCH ×2 (08:42→21:00)
[2022-05-09] MEDS: HYDRALAZINE HCL 20 MG/ML VIAL IV PRN ×2 (08:42→21:46)
[2022-05-09] MEDS: SODIUM BICARB 325 MG TAB PO SCH ×3 (08:42→16:55)
--- NOTE | 2022-05-09 13:56 | P.PN ---
Subjective Date of Service: 05/09/22 Patient is clinically improving. Arrange for outpatient hemodialysis. Biopsy is pending. Review of Systems 10-point ROS is otherwise unremarkable Physical Examination - Vital Signs Temperature: 97.3 F Blood Pressure: 132/66 Pulse: 52 Respirations: 16 Pulse Ox (%): 97 - Physical Exam General: Alert, In no apparent distress HEENT: Atraumatic, PERRLA, EOMI Neck: Supple, JVD not distended Respiratory: Clear to auscultation bilaterally, Normal air movement Cardiovascular: Regular rate/rhythm, Normal S1 S2 Gastrointestinal: Normal bowel sounds, No tenderness Musculoskeletal: No tenderness Integumentary: No rashes Neurological: Normal speech, Normal tone, Normal affect Lymphatics: No axilla or inguinal lymphadenopathy - Studies Medications List Reviewed: Yes Assessment & Plan - Problems (Diagnosis) (1) INGRID (acute kidney injury) Current Visit: Yes Status: Acute (2) ESRD (end stage renal disease) Current Visit: Yes Status: Acute - Plan Plan: 1. Arrange for outpatient hemodialysis if nephrology agreeable 2. Awaiting biopsy results 3. Monitor renal function closely 4. Continue monitoring electrolytes 5. Encourage ambulation 6. GI DVT prophylaxis - Advance Directives Does patient have a Living Will: No Does patient have a Durable POA for Healthcare: No Physician Review: Patient Assessed, Agree with Above Assessment and Plan
--- NOTE | 2022-05-09 21:17 | P.PN ---
Date of Service: 05/09/22 Vital Signs Temp Pulse Resp BP Pulse Ox 97.7 F 65 16 156/89 H 97 05/09/22 16:00 05/09/22 16:00 05/09/22 16:00 05/09/22 16:00 05/09/22 16:00 Medications Docusate Sodium (Docusate Na 100 Mg Cap) 100 mg PO BID [facility] Last Admin: 05/09/22 08:42 Dose: 100 mg Ergocalciferol (Drisdol (Vitamin D=Ergocalciferol) 90133 Unit Cap) 50,000 unit PO Q7D@0900 [facility] Last Admin: 05/06/22 08:06 Dose: Not Given Hydralazine HCl (Hydralazine Hcl 20 Mg/Ml Vial) 5 mg IV Q4HP PRN PRN Reason: SBP>160 DBP>110 Last Admin: 05/09/22 08:42 Dose: 5 mg Insulin Human Regular (Insulin -Regular Human 50 Unit/0.5 Ml Ml) 0 unit SQ [facility]; Protocol Last Admin: 05/09/22 16:30 Dose: Not Given Metoprolol Tartrate (Metoprolol Tar 25 Mg Tab) 25 mg PO [id number] [facility] Last Admin: 05/09/22 06:00 Dose: 25 mg Ondansetron HCl (Ondansetron 4 Mg/2 Ml Vial) 4 mg IV Q6HP PRN PRN Reason: NAUSEA / VOMITING Sevelamer Carbonate (Sevelamer Carbonate 800 Mg Tablet) 1,600 mg PO TIDWM [facility] Last Admin: 05/09/22 16:55 Dose: 1,600 mg Sodium Bicarbonate (Sodium Bicarb 325 Mg Tab) 650 mg PO TIDWM [facility] Last Admin: 05/09/22 16:55 Dose: 650 mg Sodium Chloride (Flush Normal Saline 10 Ml) 10 ml IV BID [facility] Last Admin: 05/09/22 08:43 Dose: 10 ml Microbiology Results 05/04/22 21:24 Clean Catch Urine [place] Count - Final No growth. 05/04/22 21:24 Clean Catch Urine - Final No growth. Assessment/ Plan: Nephrology No dyspnea No chest pain No acute events overnight Vitals, medications, blood work and imaging reviewed in the chart. General: In no apparent distress, Oriented x3, Cooperative HEENT: Atraumatic Neck: Supple Respiratory: Clear to auscultation bilaterally Cardiovascular: Regular rate/rhythm, Edema Gastrointestinal: Soft and benign, Non-distended Musculoskeletal: No clubbing, No contractures Integumentary: No rashes, No cyanosis Neurological: Normal speech Laboratory Data (last 24 hrs) 05/04/22 19:56: PT 12.4, INR 1.13 05/04/22 19:56: WBC 6.80, Hgb 12.3 L, Hct 36.1 L, Plt Count 168 05/04/22 19:56: Sodium 136, Potassium 6.0 H*, BUN 119 H, Creatinine 13.20 H*, Glucose 107 H, Uric Acid 10.3 H, Magnesium 1.7 L, Total Bilirubin 0.6, AST 21, ALT 38, Alkaline Phosphatase 73, Lipase 385 05/04/22 19:38: Uric Acid Cancelled Imagings Data: EXAM DESCRIPTION: CT - Stone Protocol - 05/04/2022 8:54 pm CLINICAL HISTORY: Acute kidney failure, possible obstruction COMPARISON: <Comparisons> TECHNIQUE: Axial 3 mm thick images were obtained without oral or IV contrast. The [id number] spans the entirety of the system including uppermost abdomen and lung bases. All CT scans are performed using dose optimization technique as appropriate and may include automated exposure control or mA/KV adjustment according to patient size. FINDINGS: No hydronephrosis is present in either kidney. Parapelvic cysts are present. No obstructing calculi seen. Patient has bilateral nonobstructing calyx calculi, more prominent on the left. An exophytic 2 centimeter homogeneous slightly hyperdense mass projects from the lateral mid right kidney matching the 2020 study. This is believed to be an incidental high protein content cyst. There is a lobulated or prominent contour anterior upper pole left kidney approximately 3 cm in size. This is more prominent than on the prior studies. This may still be isodense lobulated parenchyma. An isodense mass, while lower in likelihood, cannot be excluded. Isodense masses and pyelonephritis are not excluded. There is nonspecific stranding along the course of the left ureter down to the UVJ. Urinary bladder is only partially filled. Bladder pruitt appear thickened and edematous with shaggy margins. No prostate abnormality. Imaged portions of the liver, spleen and pancreas show no suspicious findings on non-contrast imaging. Cholelithiasis present. Gallbladder is contracted which accentuates wall thickness. No biliary tree dilatation. No suspicious bowel findings. No mass or bulky lymphadenopathy. Bilateral small fat filled inguinal hernias are present. No free air, free fluid or pneumatosis. No significant bony abnormality. IMPRESSION: No hydronephrosis or obstructing calculi. Patient has nonobstructing bilateral calyx calculi, greater on the left. Left ureter is not dilated there is stranding along the course of the left ureter which could indicate a recently passed stone or infectious/ inflammatory change. Thickened shaggy urinary bladder pruitt would suggest cystitis. This needs correlation with clinical and laboratory findings. Lobulated contour anterior upper pole left kidney. This is probably normal isodense lobulation. An isodense mass, while less likely, cannot be excluded. Cholelithiasis Isodense masses and pyelonephritis are not excluded on stone protocol technique. EXAM DESCRIPTION: RAD - Chest Single View - 05/04/2022 8:05 pm CLINICAL HISTORY: COUGH COMPARISON: Portable 12/02/2020 TECHNIQUE: AP portable chest image was obtained 05/04/2022 8:05 pm . FINDINGS: No peripheral mass or consolidation. Cardiomegaly is present accentuated by pericardial fat pads. No acute failure or volume overload findings. No measurable pleural effusion and no pneumothorax. No acute bony abnormality seen. No acute aortic findings rocael pected. IMPRESSION: No acute lung parenchymal process. Cardiomegaly without other findings of failure or volume overload. EXAM DESCRIPTION: US - Renal Ultrasound-Complete - 05/05/2022 7:15 am CLINICAL HISTORY: arf COMPARISON: Stone Protocol dated 05/04/2022None. FINDINGS: The right kidney measures 12.0 x 5.9 x 6.6 cm. The left kidney measures 12.6 x 7.0 x 4.8 cm. Renal cortical thinning is evident. Parenchymal echogenicity is only slightly increased. There is no hydronephrosis of either kidney. A 2.2 centimeter exophytic cyst is present lateral right kidney. This is the correlate to the suspected high protein content cyst on the CT study. This cyst has no worrisome characteristics. An 11 millimeter cyst is present in the lower pole of the left kidney. The upper pole of the left kidney was difficult to visualize due to limited acoustic window. The upper pole of the left kidney was the area of concern on the CT study. Urinary bladder assessment was limited. IMPRESSION: The upper pole of the left kidney was poorly visualized due to limited sonographic acoustic window. Upper pole of the left kidney was the area of prominent lobulation noted on the CT study. Bilateral renal cortical thinning and increased cortical echogenicity consistent with underlying medical renal disease. The hyperdense small mass the right kidney is simple cyst characteristics at sonography. This is a benign high protein content cyst. Due to the poor visualization, continued follow-up of the left kidney is needed. Repeat CT imaging could be performed with contrast when the patient has renal function allows. MRI imaging, even if performed without contrast, could also be used to evaluate the upper pole left kidney. Conclusions/Impression: Stage III INGRID of unclear etiology CKD III with proteinuria -No NSAIDs -Continue fletcher and monitor I/O -Kidney biopsy pending -Hepatitis pending Nephrolithiasis, non-obstructive -Maintain hydration Hyperkalemia/ Hypokalemia -Renal diet -Replete prn Metabolic Acidosis -Reduce oral bicarb Hypomagnesemia -Replete prn Hyperuricemia HTN with CKD -Continue metoprolol DM II with CKD -RISS Anemia in chronic illness -Monitor H&H -Retacrit prn CKD MBD Hypocalcemia HyperPO4 -Continue Renagel -Continue Ergo
[2022-05-10 05:52] LABS: Absolute Lymphocytes (CBC) 0.9 K/uL (0.7-4.9); Hematocrit 29.8 % (39.6-49.0); Lymphocytes % 13.8 % (15.3-44.8); MCV 97.3 fL (80-100); MPV 8.5 fL (7.6-11.3); RBC Red Blood Cell Count 3.06 M/uL (4.33-5.43)
[2022-05-10] MEDS: METOPROLOL TAR 25 MG TAB PO SCH (06:00)
[2022-05-10 06:07] LABS: Specific Gravity 1.012 (1.005-1.030); Urine Bacteria <20 /HPF (<20); Urine Bilirubin NEGATIVE (Negative); Urine Blood Negative (Negative); Urine Clarity Clear (Clear); Urine Color Light-Yellow (Yellow); Urine Glucose TRACE (Negative); Urine Mucus Slight /HPF (None Seen); Urine Protein 1+ (Negative); Urine Urobilinogen Normal (Normal)
[2022-05-10 06:14] LABS: Albumin 3.4 g/dL (3.4-5.0); Bilirubin Total 0.6 mg/dL (0.2-1.0); Magnesium 1.9 mg/dL (1.6-2.4); Phosphorus 5.3 mg/dL (2.5-4.9); Potassium 3.5 mmol/L (3.5-5.1); Protein, Total 7.2 g/dL (6.4-8.2); Uric Acid 7.6 mg/dL (3.5-7.2)
[2022-05-10 06:39] LABS: UR MICROALBUMIN 24.9 mg/dL (< 1.9)
[2022-05-10] MEDS: INSULIN -REGULAR HUMAN 50 UNIT/0.5 ML ML SQ SCH ×4 (07:30→21:00)
[2022-05-10] MEDS: SODIUM BICARB 325 MG TAB PO SCH ×2 (08:18→17:56)
[2022-05-10] MEDS: SEVELAMER CARBONATE 800 MG TABLET PO SCH ×3 (08:18→17:56)
[2022-05-10] MEDS: DOCUSATE NA 100 MG CAP PO SCH ×2 (08:19→20:27)
[2022-05-10 12:13] LABS: UR PROTEIN 62.1 mg/dL (<11.9); Urine Protein/Creatinine Ratio 0.58 ratio (<0.15)
[2022-05-10] MEDS ORDERED: MELATONIN 5 MG TABLET PO PRN (19:48)
--- NOTE | 2022-05-10 22:49 | P.PN ---
Date of Service: 05/10/22 Vital Signs Temp Pulse Resp BP Pulse Ox 98.3 F 53 16 148/80 H 97 05/10/22 20:00 05/10/22 20:00 05/10/22 20:00 05/10/22 20:00 05/10/22 20:00 Medications Amlodipine Besylate (Amlodipine 5 Mg Tab) 5 mg PO DAILY [facility] Docusate Sodium (Docusate Na 100 Mg Cap) 100 mg PO BID [facility] Last Admin: 05/10/22 20:27 Dose: Not Given Ergocalciferol (Drisdol (Vitamin D=Ergocalciferol) 49403 Unit Cap) 50,000 unit PO Q7D@0900 [facility] Last Admin: 05/06/22 08:06 Dose: Not Given Hydralazine HCl (Hydralazine Hcl 20 Mg/Ml Vial) 5 mg IV Q4HP PRN PRN Reason: SBP>160 DBP>110 Last Admin: 05/09/22 21:46 Dose: 5 mg Insulin Human Regular (Insulin -Regular Human 50 Unit/0.5 Ml Ml) 0 unit SQ [facility]; Protocol Last Admin: 05/10/22 21:00 Dose: Not Given Melatonin (Melatonin 5 Mg Tablet) 10 mg PO BEDTIME PRN PRN PRN Reason: INSOMNIA Metoprolol Tartrate (Metoprolol Tar 25 Mg Tab) 25 mg PO [id number] [facility] Last Admin: 05/10/22 06:00 Dose: Not Given Ondansetron HCl (Ondansetron 4 Mg/2 Ml Vial) 4 mg IV Q6HP PRN PRN Reason: NAUSEA / VOMITING Sevelamer Carbonate (Sevelamer Carbonate 800 Mg Tablet) 1,600 mg PO TIDWM [facility] Last Admin: 05/10/22 17:56 Dose: 1,600 mg Sodium Bicarbonate (Sodium Bicarb 325 Mg Tab) 325 mg PO BIDWM [facility] Last Admin: 05/10/22 17:56 Dose: 325 mg Sodium Chloride (Flush Normal Saline 10 Ml) 10 ml IV BID [facility] Last Admin: 05/10/22 21:29 Dose: 10 ml Microbiology Results 05/04/22 21:24 Clean Catch Urine [place] Count - Final No growth. 05/04/22 21:24 Clean Catch Urine - Final No growth. Assessment/ Plan: Nephrology No dyspnea No chest pain No acute events overnight Vitals, medications, blood work and imaging reviewed in the chart. General: In no apparent distress, Oriented x3, Cooperative HEENT: Atraumatic Neck: Supple Respiratory: Clear to auscultation bilaterally Cardiovascular: Regular rate/rhythm, Edema Gastrointestinal: Soft and benign, Non-distended Musculoskeletal: No clubbing, No contractures Integumentary: No rashes, No cyanosis Neurological: Normal speech Laboratory Data (last 24 hrs) 05/04/22 19:56: PT 12.4, INR 1.13 05/04/22 19:56: WBC 6.80, Hgb 12.3 L, Hct 36.1 L, Plt Count 168 05/04/22 19:56: Sodium 136, Potassium 6.0 H*, BUN 119 H, Creatinine 13.20 H*, Glucose 107 H, Uric Acid 10.3 H, Magnesium 1.7 L, Total Bilirubin 0.6, AST 21, ALT 38, Alkaline Phosphatase 73, Lipase 385 05/04/22 19:38: Uric Acid Cancelled Imagings Data: EXAM DESCRIPTION: CT - Stone Protocol - 05/04/2022 8:54 pm CLINICAL HISTORY: Acute kidney failure, possible obstruction COMPARISON: <Comparisons> TECHNIQUE: Axial 3 mm thick images were obtained without oral or IV contrast. The [id number] spans the entirety of the system including uppermost abdomen and lung bases. All CT scans are performed using dose optimization technique as appropriate and may include automated exposure control or mA/KV adjustment according to patient size. FINDINGS: No hydronephrosis is present in either kidney. Parapelvic cysts are present. No obstructing calculi seen. Patient has bilateral nonobstructing calyx calculi, more prominent on the left. An exophytic 2 centimeter homogeneous slightly hyperdense mass projects from the lateral mid right kidney matching the 2020 study. This is believed to be an incidental high protein content cyst. There is a lobulated or prominent contour anterior upper pole left kidney approximately 3 cm in size. This is more prominent than on the prior studies. This may still be isodense lobulated parenchyma. An isodense mass, while lower in likelihood, cannot be excluded. Isodense masses and pyelonephritis are not excluded. There is nonspecific stranding along the course of the left ureter down to the UVJ. Urinary bladder is only partially filled. Bladder pruitt appear thickened and edematous with shaggy margins. No prostate abnormality. Imaged portions of the liver, spleen and pancreas show no suspicious findings on non-contrast imaging. Cholelithiasis present. Gallbladder is contracted which accentuates wall thickness. No biliary tree dilatation. No suspicious bowel findings. No mass or bulky lymphadenopathy. Bilateral small fat filled inguinal hernias are present. No free air, free fluid or pneumatosis. No significant bony abnormality. IMPRESSION: No hydronephrosis or obstructing calculi. Patient has nonobstructing bilateral calyx calculi, greater on the left. Left ureter is not dilated there is stranding along the course of the left ureter which could indicate a recently passed stone or infectious/ inflammatory change. Thickened shaggy urinary bladder pruitt would suggest cystitis. This needs correlation with clinical and laboratory findings. Lobulated contour anterior upper pole left kidney. This is probably normal isodense lobulation. An isodense mass, while less likely, cannot be excluded. Cholelithiasis Isodense masses and pyelonephritis are not excluded on stone protocol technique. EXAM DESCRIPTION: RAD - Chest Single View - 05/04/2022 8:05 pm CLINICAL HISTORY: COUGH COMPARISON: Portable 12/02/2020 TECHNIQUE: AP portable chest image was obtained 05/04/2022 8:05 pm . FINDINGS: No peripheral mass or consolidation. Cardiomegaly is present accentuated by pericardial fat pads. No acute failure or volume overload findings. No measurable pleural effusion and no pneumothorax. No acute bony abnormality seen. No acute aortic findings suspected. IMPRESSION: No acute lung parenchymal process. Cardiomegaly without other findings of failure or volume overload. EXAM DESCRIPTION: US - Renal Ultrasound-Complete - 05/05/2022 7:15 am CLINICAL HISTORY: arf COMPARISON: Stone Protocol dated 05/04/2022None. FINDINGS: The right kidney measures 12.0 x 5.9 x 6.6 cm. The left kidney measures 12.6 x 7.0 x 4.8 cm. Renal cortical thinning is evident. Parenchymal echogenicity is only slightly increased. There is no hydronephrosis of either kidney. A 2.2 centimeter exophytic cyst is present lateral right kidney. This is the correlate to the suspected high protein content cyst on the CT study. This cyst has no worrisome characteristics. An 11 millimeter cyst is present in the lower pole of the left kidney. The upper pole of the left kidney was difficult to visualize due to limited acoustic window. The upper pole of the left kidney was the area of concern on the CT study. Urinary bladder assessment was limited. IMPRESSION: The upper pole of the left kidney was poorly visualized due to limited sonographic acoustic window. Upper pole of the left kidney was the area of prominent lobulation noted on the CT study. Bilateral renal cortical thinning and increased cortical echogenicity consistent with underlying medical renal disease. The hyperdense small mass the right kidney is simple cyst characteristics at sonography. This is a benign high protein content cyst. Due to the poor visualization, continued follow-up of the left kidney is needed. Repeat CT imaging could be performed with contrast when the patient has renal function allows. MRI imaging, even if performed without contrast, could also be used to evaluate the upper pole left kidney. 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
--- NOTE | 2022-05-10 23:32 | P.PN ---
Date of Service: 05/10/22 Subjective Review of Systems 10-point ROS is otherwise unremarkable Physical Examination - Vital Signs reviewed - Physical Exam General: Alert, In no apparent distress Respiratory: Clear to auscultation bilaterally, Normal air movement Cardiovascular: Regular rate/rhythm, Normal S1 S2 Gastrointestinal: Normal bowel sounds, No tenderness Neurological: Normal speech, Normal tone, Normal affect Assessment & Plan - Problems (Diagnosis) (1) INGRID (acute kidney injury) Current Visit: Yes Status: Acute (2) ESRD (end stage renal disease) Current Visit: Yes Status: Acute - Plan Continue with POC as mentioned below 1. Arrange for outpatient hemodialysis if nephrology agreeable 2. Awaiting biopsy results 3. Monitor renal function closely 4. Continue monitoring electrolytes 5. Encourage ambulation 6. GI DVT prophylaxis - Advance Directives Does patient have a Living Will: No Does patient have a Durable POA for Healthcare: No Physician Review: Patient Assessed, Agree with Above Assessment and Plan
[2022-05-11 04:31] LABS: Potassium 3.5 mmol/L (3.5-5.1)
[2022-05-11] MEDS: METOPROLOL TAR 25 MG TAB PO SCH (06:38)
[2022-05-11] MEDS: INSULIN -REGULAR HUMAN 50 UNIT/0.5 ML ML SQ SCH ×4 (07:30→20:42)
[2022-05-11] MEDS: SEVELAMER CARBONATE 800 MG TABLET PO SCH ×3 (08:23→16:20)
[2022-05-11] MEDS: AMLODIPINE 5 MG TAB PO SCH (08:23)
[2022-05-11] MEDS: SODIUM BICARB 325 MG TAB PO SCH ×2 (08:24→16:20)
[2022-05-11] MEDS: DOCUSATE NA 100 MG CAP PO SCH ×2 (08:24→21:00)
--- NOTE | 2022-05-11 10:48 | P.PN ---
Nephrology note (S) Discussed in length the prelim biopsy report received by Dr. Mart Sherman as well as the latest labs and plans, all questions answered. Pt has no acute complaints. No shortness of breath or swelling. General: In no apparent distress, Oriented x3, Cooperative HEENT: Atraumatic, sclera anicteric Neck: Supple Respiratory: Clear to auscultation bilaterally, no rhonchi Cardiovascular: Regular rate/rhythm, No LE edema Gastrointestinal: Soft and benign, Non-distended Musculoskeletal: No clubbing, No contractures Integumentary: No rashes, No cyanosis Neurological: Normal speech, awake, alert non focal Laboratory Data (last 24 hrs) Reviewed Conclusions/Impression: Stage III sub acute renal failure 2nd to ATN due to Ca oxalate nephropathy in part, likely induced through long-term moderate dose Vit C consumption Nnderlying CKD III NOS 2nd to hypertensive nephropathy with some global glomerulosclerosis noted and moderate tubular interstitial fibrosis reported. Await full path report for all details. Non oliguric, in fact remains with good UOP. Metab profile stable so no emergent indication for [employer] was felt on admission and currently plan is to avoid dialysis if possible, no overt uremia, Cr level v.slowly trending downwards. Developing plan to discharge by end of the week if renal function continues to slowly recover. on discharge will obtain labs 2x/week and see pt in clinic every 2 weeks while monitoring to see where his renal function ultimately settles. Risk for dialysis dependence remains and clearly explained to pt Abnormal diagnostic imaging of the kidney, left. Acquired cyst of kidney. Calculus of kidney -Several weeks from now once renal function stabilizes, will get 24h urine studies to assess calcium, oxalate, citrate and supersaturation Hyperkalemia, resolved -Renal diet Metabolic Acidosis -Bicarb deficit improved Hyperphosphatemia -Placed on binders, repeat levels improving, target < 5.5 HTN Mod elevated at times, started on CCB, monitor Mio Camargo MD, MARC
[2022-05-11 19:31] LABS: HBsAG Nonreactive (Nonreactive)
[2022-05-12] MEDS: METOPROLOL TAR 25 MG TAB PO SCH (06:00)
[2022-05-12] MEDS: INSULIN -REGULAR HUMAN 50 UNIT/0.5 ML ML SQ SCH ×4 (07:30→20:31)
[2022-05-12] MEDS: SEVELAMER CARBONATE 800 MG TABLET PO SCH ×3 (08:25→17:07)
[2022-05-12] MEDS: AMLODIPINE 5 MG TAB PO SCH (08:25)
[2022-05-12] MEDS: DOCUSATE NA 100 MG CAP PO SCH ×3 (08:26→20:31)
[2022-05-12] MEDS: SODIUM BICARB 325 MG TAB PO SCH ×2 (08:26→17:08)
[2022-05-12 11:47] LABS: Potassium 3.6 mmol/L (3.5-5.1)
--- NOTE | 2022-05-12 22:28 | P.PN ---
Date of Service: 05/12/22 Vital Signs Temp Pulse Resp BP Pulse Ox 97 F 65 18 176/81 H 96 05/12/22 20:00 05/12/22 20:00 05/12/22 20:00 05/12/22 20:00 05/12/22 20:00 Medications Amlodipine Besylate (Amlodipine 5 Mg Tab) 5 mg PO DAILY [facility] Last Admin: 05/12/22 08:25 Dose: 5 mg Docusate Sodium (Docusate Na 100 Mg Cap) 100 mg PO BID [facility] Last Admin: 05/12/22 20:31 Dose: Not Given Ergocalciferol (Drisdol (Vitamin D=Ergocalciferol) 63002 Unit Cap) 50,000 unit PO Q7D@0900 [facility] Last Admin: 05/06/22 08:06 Dose: Not Given Hydralazine HCl (Hydralazine Hcl 20 Mg/Ml Vial) 5 mg IV Q4HP PRN PRN Reason: SBP>160 DBP>110 Last Admin: 05/09/22 21:46 Dose: 5 mg Insulin Human Regular (Insulin -Regular Human 50 Unit/0.5 Ml Ml) 0 unit SQ [facility]; Protocol Last Admin: 05/12/22 20:31 Dose: Not Given Melatonin (Melatonin 5 Mg Tablet) 10 mg PO BEDTIME PRN PRN PRN Reason: INSOMNIA Metoprolol Tartrate (Metoprolol Tar 25 Mg Tab) 25 mg PO [id number] [facility] Last Admin: 05/12/22 06:00 Dose: Not Given Ondansetron HCl (Ondansetron 4 Mg/2 Ml Vial) 4 mg IV Q6HP PRN PRN Reason: NAUSEA / VOMITING Sevelamer Carbonate (Sevelamer Carbonate 800 Mg Tablet) 1,600 mg PO TIDWM [facility] Last Admin: 05/12/22 17:07 Dose: 1,600 mg Sodium Bicarbonate (Sodium Bicarb 325 Mg Tab) 325 mg PO BIDWM [facility] Last Admin: 05/12/22 17:08 Dose: 325 mg Sodium Chloride (Flush Normal Saline 10 Ml) 10 ml IV BID [facility] Last Admin: 05/12/22 08:26 Dose: 10 ml Microbiology Results 05/04/22 21:24 Clean Catch Urine [place] Count - Final No growth. 05/04/22 21:24 Clean Catch Urine - Final No growth. Assessment/ Plan: Nephrology No dyspnea No chest pain No uremic symptoms. Good appetite. Good urine output. No acute events overnight Vitals, medications, blood work and imaging reviewed in the chart. General: In no apparent distress, Oriented x3, Cooperative HEENT: Atraumatic Neck: Supple Respiratory: Clear to auscultation bilaterally Cardiovascular: Regular rate/rhythm, Edema Gastrointestinal: Soft and benign, Non-distended Musculoskeletal: No clubbing, No contractures Integumentary: No rashes, No cyanosis Neurological: Normal speech Laboratory Data (last 24 hrs) 05/04/22 19:56: PT 12.4, INR 1.13 05/04/22 19:56: WBC 6.80, Hgb 12.3 L, Hct 36.1 L, Plt Count 168 05/04/22 19:56: Sodium 136, Potassium 6.0 H*, BUN 119 H, Creatinine 13.20 H*, Glucose 107 H, Uric Acid 10.3 H, Magnesium 1.7 L, Total Bilirubin 0.6, AST 21, ALT 38, Alkaline Phosphatase 73, Lipase 385 05/04/22 19:38: Uric Acid Cancelled Imagings Data: EXAM DESCRIPTION: CT - Stone Protocol - 05/04/2022 8:54 pm CLINICAL HISTORY: Acute kidney failure, possible obstruction COMPARISON: <Comparisons> TECHNIQUE: Axial 3 mm thick images were obtained without oral or IV contrast. The [id number] spans the entirety of the system including uppermost abdomen and lung bases. All CT scans are performed using dose optimization technique as appropriate and may include automated exposure control or mA/KV adjustment according to patient size. FINDINGS: No hydronephrosis is present in either kidney. Parapelvic cysts are present. No obstructing calculi seen. Patient has bilateral nonobstructing calyx calculi, more prominent on the left. An exophytic 2 centimeter homogeneous slightly hyperdense mass projects from the lateral mid right kidney matching the 2019 study. This is believed to be an incidental high protein content cyst. There is a lobulated or prominent contour anterior upper pole left kidney approximately 3 cm in size. This is more prominent than on the prior studies. This may still be isodense lobulated parenchyma. An isodense mass, while lower in likelihood, cannot be excluded. Isodense masses and pyelonephritis are not excluded. There is nonspecific stranding along the course of the left ureter down to the UVJ. Urinary bladder is only partially filled. Bladder pruitt appear thickened and edematous with shaggy margins. No prostate abnormality. Imaged portions of the liver, spleen and pancreas show no suspicious findings on non-contrast imaging. Cholelithiasis present. Gallbladder is contracted which accentuates wall thickness. No biliary tree dilatation. No suspicious bowel findings. No mass or bulky lymphadenopathy. Bilateral small fat filled inguinal hernias are present. No free air, free fluid or pneumatosis. No significant bony abnormality. IMPRESSION: No hydronephrosis or obstructing calculi. Patient has nonobstructing bilateral calyx calculi, greater on the left. Left ureter is not dilated there is stranding along the course of the left ureter which could indicate a recently passed stone or infectious/ inflammatory change. Thickened shaggy urinary bladder pruitt would suggest cystitis. This needs correlation with clinical and laboratory findings. Lobulated contour anterior upper pole left kidney. This is probably normal isodense lobulation. An isodense mass, while less likely, cannot be excluded. Cholelithiasis Isodense masses and pyelonephritis are not excluded on stone protocol technique. EXAM DESCRIPTION: RAD - Chest Single View - 05/04/2022 8:05 pm CLINICAL HISTORY: COUGH COMPARISON: Portable 12/02/2020 TECHNIQUE: AP portable chest image was obtained 05/04/2022 8:05 pm . FINDINGS: No peripheral mass or consolidation. Cardiomegaly is present accentuated by pericardial fat pads. No acute failure or volume overload findings. No measurable pleural effusion and no pneumothorax. No acute bony abnormality seen. No acute aortic findings suspected. IMPRESSION: No acute lung parenchymal process. Cardiomegaly without other findings of failure or volume overload. EXAM DESCRIPTION: US - Renal Ultrasound-Complete - 05/05/2022 7:15 am CLINICAL HISTORY: arf COMPARISON: Stone Protocol dated 05/04/2022None. FINDINGS: The right kidney measures 12.0 x 5.9 x 6.6 cm. The left kidney measures 12.6 x 7.0 x 4.8 cm. Renal cortical thinning is evident. Parenchymal echogenicity is only slightly increased. There is no hydronephrosis of either kidney. A 2.2 centimeter exophytic cyst is present lateral right kidney. This is the correlate to the suspected high protein content cyst on the CT study. This cyst has no worrisome characteristics. An 11 millimeter cyst is present in the lower pole of the left kidney. The upper pole of the left kidney was difficult to visualize due to limited acoustic window. The upper pole of the left kidney was the area of concern on the CT study. Urinary bladder assessment was limited. IMPRESSION: The upper pole of the left kidney was poorly visualized due to limited sonographic acoustic window. Upper pole of the left kidney was the area of prominent lobulation noted on the CT study. Bilateral renal cortical thinning and increased cortical echogenicity consistent with underlying medical renal disease. The hyperdense small mass the right kidney is simple cyst characteristics at sonography. This is a benign high protein content cyst. Due to the poor visualization, continued follow-up of the left kidney is needed. Repeat CT imaging could be performed with contrast when the patient has renal function allows. MRI imaging, even if performed without contrast, could also be used to evaluate the upper pole left kidney. 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
[2022-05-13 02:25] VITALS: O2SAT 98
[2022-05-13 05:17] LABS: Specific Gravity 1.011 (1.005-1.030); Urine Bacteria <20 /HPF (<20); Urine Bilirubin NEGATIVE (Negative); Urine Blood Negative (Negative); Urine Clarity Clear (Clear); Urine Color Colorless (Yellow); Urine Glucose TRACE (Negative); Urine Protein 1+ (Negative); Urine RBC <5 /HPF (None Seen); Urine Sperm Present (None Seen); Urine Urobilinogen Normal (Normal)
[2022-05-13 05:44] LABS: Absolute Lymphocytes (CBC) 0.8 K/uL (0.7-4.9); Hematocrit 30.2 % (39.6-49.0); Lymphocytes % 12.4 % (15.3-44.8); MCV 96.6 fL (80-100); MPV 8.5 fL (7.6-11.3); RBC Red Blood Cell Count 3.13 M/uL (4.33-5.43)
[2022-05-13 06:01] LABS: Albumin 3.3 g/dL (3.4-5.0); Bilirubin Total 0.6 mg/dL (0.2-1.0); Magnesium 1.7 mg/dL (1.6-2.4); Phosphorus 4.6 mg/dL (2.5-4.9); Potassium 3.6 mmol/L (3.5-5.1); Protein, Total 7.1 g/dL (6.4-8.2); Uric Acid 7.6 mg/dL (3.5-7.2)
[2022-05-13] MEDS: METOPROLOL TAR 25 MG TAB PO SCH (06:34)
[2022-05-13] MEDS: INSULIN -REGULAR HUMAN 50 UNIT/0.5 ML ML SQ SCH (07:30)
[2022-05-13] MEDS: SODIUM BICARB 325 MG TAB PO SCH (08:12)
[2022-05-13] MEDS: DRISDOL (VITAMIN D=ERGOCALCIFEROL) 50000 UNIT CAP PO SCH (08:12)
[2022-05-13] MEDS: SEVELAMER CARBONATE 800 MG TABLET PO SCH (08:13)
[2022-05-13 08:14] VITALS: BP 153/79
[2022-05-13] MEDS: DOCUSATE NA 100 MG CAP PO SCH (08:14)
[2022-05-13 08:34] VITALS: TEMP 96.9
[2022-05-13] MEDS ORDERED: AMLODIPINE 5 MG TAB PO SCH (09:00)
--- NOTE | 2022-05-13 09:14 | P.PN ---
Nephrology note (S) Discussed discharge plans with pt, no acute complaints General: In no apparent distress, Oriented x3, Cooperative HEENT: Atraumatic, sclera anicteric Neck: Supple Respiratory: Clear to auscultation bilaterally, no rhonchi Cardiovascular: Regular rate/rhythm, No LE edema Gastrointestinal: Soft and benign, Non-distended Musculoskeletal: No clubbing, No contractures Integumentary: No rashes, No cyanosis Neurological: Normal speech, awake, alert non focal Laboratory Data (last 24 hrs) Reviewed Conclusions/Impression: Stage III sub acute renal failure 2nd to ATN due to Ca oxalate nephropathy in part, likely induced through long-term moderate dose Vit C consumption Nnderlying CKD III NOS 2nd to hypertensive nephropathy with some global glomerulosclerosis noted and moderate tubular interstitial fibrosis reported. Non oliguric, in fact remains with good UOP. 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 Discharge today since renal function continues to slowly recover. on discharge will obtain labs 2x/week and see pt in clinic every 2 weeks while monitoring to see where his renal function ultimately settles. Risk for dialysis dependence remains and clearly explained to pt Abnormal diagnostic imaging of the kidney, left. Acquired cyst of kidney. Calculus of kidney -Several weeks from now once renal function stabilizes, will get 24h urine studies to assess calcium, oxalate, citrate and supersaturation Hyperkalemia, resolved -Renal diet Metabolic Acidosis -Bicarb deficit improved Hyperphosphatemia -Placed on binders, repeat levels improving, target < 5.5, will switch to Ca acetate on discharge HTN Mod elevated at times, started on CCB, monitor. Cont to hold losartan/hctz Mio Camargo MD, MARC
[2022-05-13] MEDS ORDERED: CALCIUM ACETATE 667 MG TAB PO SCH (12:00)
[2022-05-18 19:32] LABS: HBsAG Nonreactive (Nonreactive)
== END 2022-05-13 10:55 | disposition home or self-care (01) | DRG 683 ==
LOC: ER 18:29 → ERHOLD 22:40 → 2ND 05-05 18:32
PROVIDERS: ADMIT Internal Medicine; ATTEND Hospitalist
PROC: 0T9B70Z Drainage of Bladder with Drainage Device, Via Natural or Artificial Opening (ICD-10-PCS; principal; 2022-05-04)
PROC: 0TB13ZX Excision of Left Kidney, Percutaneous Approach, Diagnostic (ICD-10-PCS; 2022-05-06)
DX: N17.0 Acute kidney failure with tubular necrosis (principal); E87.21 Acute metabolic acidosis; I48.20 Chronic atrial fibrillation, unspecified; I48.92 Unspecified atrial flutter; D63.8 Anemia in other chronic diseases classified elsewhere; E11.22 Type 2 diabetes mellitus with diabetic chronic kidney disease; N18.30 Chronic kidney disease, stage 3 unspecified; E87.5 Hyperkalemia; E87.6 Hypokalemia; I12.9 Hypertensive chronic kidney disease with stage 1 through stage 4 chronic kidney disease, or unspecified chronic kidney disease; Z79.01 Long term (current) use of anticoagulants; N20.0 Calculus of kidney; N28.89 Other specified disorders of kidney and ureter; N28.1 Cyst of kidney, acquired; Z20.822 Contact with and (suspected) exposure to COVID-19
CPT/HCPCS: 36415; 50200; 51702; 71045; 74176; 76377; 76770; 80048; 80053; 80061; 80069; 80076; 81001; 81003; 82043; 82435; 82550; 82570; 82947; 83036; 83520; 83690; 83735; 83880; 84100; 84132; 84156; 84300; 84439; 84443; 84484; 84550; 85014; 85018; 85025; 85610; 86021; 86038; 86160; 86317; 86704; 86803; 87086; 87088; 87340; 87811; 88300; 93005; 93306; 99285; J0360; J0610; J1815; J2250; J2310; J3010; J3475; J7030; J7040; J7120

== ENCOUNTER 2022-08-01 15:05 | Emergency (ER) | payer BC, OTHER ==
--- OUTSIDE RECORDS SUMMARY | 2022-08-01 15:22 | XMS REPORT | Continuity of Care Document ---
:1950 Author Organization [facility] t Address [address] [facility] [address] [place] [address] Care Team Providers Name Role Phone Asked, No Pcp Primary Care Physician Unavailable DEVONTE HUANG Attending Clinician Unavailable Franko Crowley Attending Clinician Unavailable LAB90 Attending Clinician Unavailable ROXY ALFARO Attending Clinician Unavailable AVERY KHAN Attending Clinician Unavailable DEVONTE HUANG Attending Clinician Unavailable LORI VIVEROS Attending Clinician Unavailable Roxy Alfaro MD Attending Clinician [phone] Devonte Huang MD Attending Clinician [phone] NAZIA GALVAN Attending Clinician Unavailable DEVONTE HUANG Admitting Clinician Unavailable Sagar Cavanaugh Admitting Clinician Unavailable NAZIA GALVAN Admitting Clinician Unavailable Payers Payer Name Policy Type Policy Number Effective Date Expiration Date S soraida MEDICARE PART A [id number] 2018 00:00:00 CIGNA HMO/POS/OPEN [id number] 2016 ACCESS 00:00:00 BCBS 2 [id number] 2020 00:00:00 OUT OF STATE [facility] [id number] O - [facility] OPEN ACCESS PLUS - [id number] 2016 CIGNA 00:00:00 CVCP-CIGNA PPO [id number] MEDICARE PART A [id number] \T\ B - MEDICARE Problems Condition Condition Condition Status Onset Resolution Last Treating Co mments Source Name Details Category Date Date Treatment Clinician Date 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 Natural sister Cancer [facility] Natural sister Hypertension [facility] Social History Social Habit Start Date Stop Date Quantity Comments Source History of Cigarette Smoker Dom self tobacco use of Medicine History SDOH [facility] Drinks History [facility] Alcohol Binge Medical [address] [facility] Alcohol intake 2019-12-25 2019-12-25 [facility] alcohol (finding) Medical Center History [facility] 2019-08-09 2019-08-[address] [facility] Alcohol Frequency 00:00:00 00:00:00 Medical Center History [facility] 2019-08-08 2019-08-[address] [facility] Alcohol Comment 00:00:00 00:00:00 2-3 days Medical C enter Tobacco use and 2018-10-05 2018-10-[address] [facility] exposure 00:00:00 00:00:00 Medical Center Sex Assigned At [address] [facility] 00:[facility] Center Smoking Status Start Date Stop Date Source Tobacco smoking [facility] consumption unknown Never smoked tobacco Mirtha Bourgeois old - External Former smoker 2020-03-02 00:00:00 2020-03-02 [facility] Colle ge of 00:00:00 Medicine Medications Ordered Filled Start Stop Current Ordering Indication Dosage Frequency Signature Comments Components Source Medication Medication Date Date Medication? Clinician (SIG) Name Name Apixaban 2021-05- No 2.5mg Take 2.5 Omer sey 2.5 MG oral 2-07 12-07 mg by Seybol d Tablet 08:25: 00:00 mouth 2 - 32 :00 times Externa daily l Cholecalcif 2021-05 Yes 1{tbl} Take 1 Ke patricia daniel 2-07 tablet by Kely (D3-1000) 08:04: mouth - 25 MCG 24 daily Externa (1000 UT) l oral Capsule [place]-3 2021-05 Yes 1{tbl} Take 1 Mirtha Fatty Acids 2-07 tablet by Solomon delgadillo (Fish Oil) 08:04: mouth - 1000 MG 24 Externa oral l Capsule Latanoprost 2021-05 Yes 1[drp] 1 drop Paras vencesey 0.005 % 2-07 nightly Seybold ophthalmic 08:04: [...] 24 Externa Solution l Losartan 2021-05 Yes [id number] 1{tbl} Take 1 K elsey Potassium-H 2-07 tablet by Solomon delgadillo CTZ 100-25 00:00: mouth - MG oral 00 daily Externa Tablet l Metformin 2021-05 Yes [id number] 500mg Take 1 K elsey HCl ER 500 2-07 tablet Seybold MG oral 00:00: (500 mg - TABLET SR 00 total) by Exter na 24 HR mouth 4 l times daily Apixaban 2021-05 Yes [id number] 2.5mg Take 1 Ke lsey (Eliquis) 2-07 tablet Seybold 2.5 MG oral 00:00: (2.5 mg - Tablet 00 total) by Externa mouth 2 l times daily Metoprolol 2021-05 Yes [id number] 25mg Take 0.5 Mirtha Tartrate 50 2-07 tablets Seybo ld MG oral 00:00: (25 mg - Tablet 00 total) by Externa mouth l daily Minoxidil 2021-05 Yes [id number] 10mg Take 1 Ke lsey 10 MG oral 2-07 tablet (10 Sey bold Tablet 00:00: mg total) - 00 by mouth Externa daily l Losartan 2021-05- No [id number] 1{tbl} TAKE 1 Mirtha Potassium-H 2-05 12-07 TABLET BY Se ybskylar CTZ 100-25 00:00: 00:00 MOUTH - MG [...] MCG 47 daily (1000 UT) oral Capsule [place]-3 2020-05 Yes 1{tbl} Take 1 Mirtha Fatty Acids 0-22 tablet by Sey PhishMe (Fish Oil) 09:51: mouth 1000 MG 47 oral Capsule Latanoprost 2020-05 Yes 1[drp] 1 drop Ke lsey 0.005 % 0-22 nightly Seybold ophthalmic 09:51: Solution 47 Ascorbic 2020-05 Yes 1{tbl} Take 1 Kelse y Acid 0-22 tablet by Seybskylar (Vitamin C) 09:51: mouth 100 MG oral [...] Tablet 47 times daily Losartan 2020-05 Yes [id number] 1{tbl} Take 1 K elsey Potassium-H 0-22 tablet by Sey bold CTZ 00:00: mouth 100-12.5 MG 00 daily oral Tablet Metformin 2020-05 Yes [id number] 500mg Take 1 K elsey HCl ER 500 0-22 tablet Seybold MG oral 00:00: (500 mg TABLET SR 00 total) by 24 HR mouth 4 times daily Losartan 2020-05- No [id number] 1{tbl} Take 1 Mirtha Potassium-H 0-22 12-07 tablet by Se ybold CTZ 00:00: 00:00 mouth - 100-12.5 MG 00 :00 daily Externa oral Tablet l Metformin 2020-05- No [id number] 500mg Take 1 Mirtha HCl ER 500 0-22 12-07 tablet Seybol d MG oral 00:00: 00:00 (500 mg - TABLET SR 00 :00 total) by Chucker na 24 HR mouth 4 l times daily Metformin 2020-05- No Mirtha HCl ER 500 0-09 10-22 Seybold MG oral 00:00: 00:00 TABLET SR 00 :00 24 HR Losartan 2020- No [id number] 1{tbl} Take 1 Mirtha Potassium-H 7-23 10-22 tablet by Se ybold CTZ 00:00: 00:00 mouth 100-12.5 MG 00 :00 daily oral Tablet Metoprolol Yes 25mg Take 25 mg K elsey Tartrate 50 7-09 by mouth Seyb old MG oral 00:00: daily Tablet 00 Metoprolol 2021- No 25mg Take 25 mg Mirtha Tartrate 50 12-04 12-07 by mouth Sey bold MG oral [...] 10 MG 11:19: daily. Medical tablet 10 [place] latanoprost 2019-0 Yes 1[drp] QD Place [address] (XALATAN) 7-29 drop into [facility] 0.005 % 11:19: both [...] 12.[address] thiazide 7-29 mg by [facility]ukes (HYDRODIURI 11:19: mouth Medic al L) 12.5 MG 10 daily. Center tablet fluorometho 2020-0 Yes 1[drp] QD Place [address] lone (FML) 7- drop into Luke s 0.1 % 11:19: the right Medical ophthalmic [address] suspension cholecalcif 2020-0 Yes Take by [facility] daniel, 12-24 mouth. [facility] vitamin D3, 11:19: Medica l (VITAMIN D3 10 Center ORAL) cyanocobala 2020-0 Yes Take by [facility] min, 12-24 mouth. [facility] vitamin 11:19: Medical B-12, 10 Center (VITAMIN B-12 ORAL) omega-3 2020-0 Yes 1{tbl} Take [address] fatty acids - tablet by Monika es (FISH OIL 11:19: mouth. Medica l CONCENTRATE 10 Center ORAL) ascorbic 2020-0 Yes 1{tbl} Take 1 [facility] t acid - tablet by [facility] (VITAMIN C 11:19: mouth. Medic al ORAL) 10 [place] gatifloxaci 2020-0 Yes 1[drp] Apply [address] n 0.5 % - drop to [facility] Drop 11:19: eye(s) Medical 10 Administer Center in right eye . UNKNOWN 2020-0 Yes [place] XL . [facility] 11:19: Medical 10 Center metFORMIN 2020-0 Yes 1000mg Take 1,[address] (GLUCOPHAGE [...] [address] MG EC - by mouth [facility]ukes tablet 11:19: daily. Medical 10 Center AMLODIPINE 2020-0 Yes 10mg QD [address] BESYLATE, 7-29 Miscellane Luke s BULK, MISC 11:19: ous route Me dical 10 nightly. Center hydroCHLORO 2020-0 Yes 12.5mg QD Take 12.[address] thiazide - mg by [facility] (HYDRODIURI 11:19: mouth Medic al L) 12.5 MG 10 daily. Center tablet fluorometho 2020-0 Yes 1[drp] QD Place [address] lone (FML) 12-24 drop into Luke s 0.1 % 11:19: the right Medical ophthalmic [address] suspension cholecalcif 2020-0 Yes Take by [facility] daniel, 12-24 mouth. [facility] vitamin D3, 11:19: Medica l (VITAMIN D3 10 Center ORAL) cyanocobala 2020-0 Yes Take by [facility] St min, 12-24 mouth. [place] vitamin 11:19: Medical B-12, 10 Center (VITAMIN B-12 ORAL) omega-3 2020-0 Yes 1{tbl} Take 1 [facility] fatty acids 12-24 tablet by Monika monte (FISH OIL 11:19: mouth. Medica l CONCENTRATE 10 Center ORAL) ascorbic 2020-0 Yes 1{tbl} Take 1 [facility] t acid 12-24 tablet by Yohana (VITAMIN C 11:19: mouth. Medic al ORAL) 10 Center gatifloxaci 2020-0 Yes 1[drp] Apply [address] n 0.5 % 12-24 drop to [facility] Drop 11:19: eye(s) Medical 10 Administer Center in right eye . UNKNOWN 2020-0 Yes [place] XL . [facility] 12-24 [facility]ukes 11:19: [...] moxifloxaci 2020-0 Yes 400mg Take 1 Tab [facility] n (AVELOX) 7-24 by mouth Colle ge 400 MG 00:00: daily. of tablet 00 Medicin e atropine 1 2020-0 Yes 1[drp] Apply 1 Ba [facility] % 7-24 Drop to [place] ophthalmic 00:00: eye two of solution 00 times Medicin daily. e Apply to eye(s) as directed. moxifloxaci 2020-0 Yes 400mg Take 1 Tab [facility] n (AVELOX) 7-24 by mouth Colle ge 400 MG 00:00: daily. of tablet 00 Medicin e atropine 1 2020-0 Yes 1[drp] Apply 1 Ba [facility] % 7-24 Drop to [place] ophthalmic 00:00: eye two of solution 00 times Medicin daily. e Apply to eye(s) as directed. moxifloxaci 2020-0 Yes 400mg Take 1 Tab Dom n (AVELOX) 7-24 by mouth Colle ge 400 MG 00:00: daily. of tablet 00 Medicin e atropine 1 2020-0 Yes 1[drp] Apply 1 [facility] % 7-24 Drop to [place] ophthalmic 00:00: eye two of solution 00 times Medicin daily. e Apply to eye(s) as directed. moxifloxaci 2020-0 Yes 400mg Take 1 Tab [facility] n (AVELOX) 7-24 by mouth Colle ge 400 MG 00:00: daily. of tablet 00 Medicin e atropine 1 2020-0 Yes 1[drp] Apply 1 Ba [facility] % 7-24 Drop to [place] ophthalmic 00:00: eye two of solution 00 times Medicin daily. e Apply to eye(s) as directed. moxifloxaci 2020-0 Yes 400mg Take 1 Tab [facility] n (AVELOX) 7-24 by mouth Colle ge 400 MG 00:00: daily. of tablet 00 Medicin e atropine 1 2020-0 Yes 1[drp] Apply 1 [facility] % 7-24 Drop to [place] ophthalmic 00:00: eye two of solution 00 times Medicin daily. e Apply to eye(s) as directed. moxifloxaci 2020-0 Yes 400mg Take 1 Tab [facility] n (AVELOX) 7-24 by mouth Colle ge 400 MG 00:00: daily. of tablet 00 Medicin e atropine 1 2020-0 Yes 1[drp] Apply 1 Ba [facility] % 7-24 Drop to [place] ophthalmic 00:00: eye two of solution 00 times Medicin daily. e Apply to eye(s) as directed. moxifloxaci 2020-0 Yes 400mg Take 1 Tab [facility] n (AVELOX) 7-24 by mouth Colle ge 400 MG 00:00: daily. of tablet 00 Medicin e atropine 1 2020-0 Yes 1[drp] Apply 1 Ba [facility] % 7-24 Drop to [place] ophthalmic 00:00: eye two of solution 00 times Medicin daily. e Apply to eye(s) as directed. moxifloxaci 2020-0 Yes 400mg Take 1 Tab [facility] n (AVELOX) 7-24 by mouth Colle ge 400 MG 00:00: daily. of tablet 00 Medicin e atropine 1 2020-0 Yes 1[drp] Apply 1 Ba [facility] % 7-24 Drop to [place] ophthalmic 00:00: eye two of solution 00 times Medicin daily. e Apply to eye(s) as directed. moxifloxaci 2020-0 Yes 400mg Take 1 Tab [facility] n (AVELOX) 7-24 by mouth Colle ge 400 MG 00:00: daily. of tablet 00 Medicin e atropine 1 2020-0 Yes 1[drp] Apply 1 Ba [facility] % 7-24 Drop to [place] ophthalmic 00:00: eye two of solution 00 times Medicin daily. e Apply to eye(s) as directed. moxifloxaci 2020-0 Yes 400mg Take 1 Tab [facility] n (AVELOX) 7-24 by mouth Colle ge 400 MG 00:00: daily. of tablet 00 Medicin e atropine 1 2020-0 Yes 1[drp] Apply 1 [facility] % 7-24 Drop to [place] ophthalmic 00:00: eye two of solution 00 [...] eye daily. Med icin suspension e diflupredna Yes [id number] 1[drp] Place 1 [facility] te 5-11 Drop into College (DUREZOL) 00:00: the right of 0.05 % 00 eye four Medicin ophthalmic times e emulsion daily. VALTREX 1 g Yes [id number] 1000mg Take 1 Tab Dom tablet 5-11 by mouth 3 College 00:00: times of 00 daily. Medicin e COMBIGAN 2018- Yes [id number] 1[drp] Place 1 [facility] 0.2-0.5 % 5-[address] [facility] ge ophthalmic 00:00: both eyes of solution 00 every 12 Medicin hours. e diflupredna 2018- Yes [id number] 1[drp] Place 1 [facility] te 5-11 Drop into [place] (DUREZOL) 00:00: the right of 0.05 % 00 eye four Medicin ophthalmic times e emulsion daily. VALTREX 1 g Yes [id number] 1000mg Take 1 Tab [facility] tablet 5-11 by mouth 3 College 00:00: times of 00 daily. Medicin e diflupredna 2018- Yes [id number] 1[drp] Place 1 [facility] te 5-11 Drop into College (DUREZOL) 00:00: the right of 0.05 % 00 eye four Medicin ophthalmic times e emulsion daily. VALTREX 1 g Yes [id number] 1000mg Take 1 Tab [facility] tablet 5-11 by mouth 3 College 00:00: times of 00 daily. Medicin e COMBIGAN Yes [id number] 1[drp] Place 1 [place] 0.2-0.5 % 5-11 Drop into Colle ge ophthalmic 00:00: both eyes of solution 00 every 12 Medicin hours. e COMBIGAN 2018- Yes [id number] 1[drp] Place 1 [place] 0.2-0.5 % 5-11 Drop into Colle ge ophthalmic 00:00: both eyes of solution 00 every 12 Medicin hours. e diflupredna 2018- Yes [id number] 1[drp] Place 1 Dom te 5-11 Drop into College (DUREZOL) 00:00: the right of 0.05 % 00 eye four Medicin ophthalmic times e emulsion daily. VALTREX 1 g Yes [id number] 1000mg Take 1 Tab [facility] tablet 5-11 by mouth 3 College 00:00: times of 00 daily. Medicin e COMBIGAN 2018- Yes [id number] 1[drp] Place 1 [place] 0.2-0.5 % 5-11 Drop into Colle ge ophthalmic 00:00: both eyes of solution 00 every 12 Medicin hours. e diflupredna 2018- Yes [id number] 1[drp] Place 1 [facility] te 5-11 Drop into College (DUREZOL) 00:00: the right of 0.05 % 00 eye four Medicin ophthalmic times e emulsion daily. VALTREX 1 g Yes [id number] 1000mg Take 1 Tab [facility] tablet 5-11 by mouth 3 College 00:00: times of 00 daily. Medicin e COMBIGAN 2018- Yes [id number] 1[drp] Place 1 [place] 0.2-0.5 % 5-11 Drop into Colle ge ophthalmic 00:00: both eyes of solution 00 every 12 Medicin hours. e diflupredna 2019- Yes [id number] 1[drp] Place 1 [facility] te 5-11 Drop into College (DUREZOL) 00:00: the right of 0.05 % 00 eye four Medicin ophthalmic times e emulsion daily. VALTREX 1 g Yes [id number] 1000mg Take 1 Tab [facility] tablet 5-11 by mouth 3 College 00:00: times of 00 daily. Medicin e COMBIGAN 2019- Yes [id number] 1[drp] Place 1 [place] 0.2-0.5 % 5-11 Drop into Colle ge ophthalmic 00:00: both eyes of solution 00 every 12 Medicin hours. e diflupredna 2018- Yes [id number] 1[drp] Place 1 [facility] te 5-11 Drop into College (DUREZOL) 00:00: the right of 0.05 % 00 eye four Medicin ophthalmic times e emulsion daily. VALTREX 1 g Yes [id number] 1000mg Take 1 Tab [facility] tablet 5-11 by mouth 3 [place] 00:00: times of 00 daily. Medicin e COMBIGAN 2018- Yes [id number] 1[drp] Place 1 [place] 0.2-0.5 % 5-11 Drop into Colle ge ophthalmic 00:00: both eyes of solution 00 every 12 Medicin hours. e diflupredna 2018- Yes [id number] 1[drp] Place 1 [facility] te 5-11 Drop into College (DUREZOL) 00:00: the right of 0.05 % 00 eye four Medicin ophthalmic times e emulsion daily. VALTREX 1 g Yes [id number] 1000mg Take 1 Tab [facility] tablet 5-11 by mouth 3 College 00:00: times of 00 daily. Medicin e COMBIGAN 2018- Yes [id number] 1[drp] Place 1 [place] 0.2-0.5 % 5-11 Drop into Colle ge ophthalmic 00:00: both eyes of solution 00 every 12 Medicin hours. e diflupredna 2019- Yes [id number] 1[drp] Place 1 [facility] te 5-11 Drop into College (DUREZOL) 00:00: the right of 0.05 % 00 eye four Medicin ophthalmic times e emulsion daily. VALTREX 1 g Yes [id number] 1000mg Take 1 Tab Dom tablet 5-11 by mouth 3 College 00:00: times of 00 daily. Medicin e COMBIGAN 2018- Yes [id number] 1[drp] Place 1 [place] 0.2-0.5 % 5-11 Drop into Colle ge ophthalmic 00:00: both eyes of solution 00 every 12 Medicin hours. e diflupredna 2019- Yes [id number] 1[drp] Place 1 Dom te 5-11 Drop into College (DUREZOL) 00:00: the right of 0.05 % 00 eye four Medicin ophthalmic times e emulsion daily. VALTREX 1 g Yes [id number] 1000mg Take 1 Tab [facility] tablet 5-11 by mouth 3 College 00:00: times of 00 daily. Medicin e COMBIGAN Yes [id number] 1[drp] Place 1 [place] 0.2-0.5 % 5-11 Drop into Colle ge ophthalmic 00:00: both eyes of solution 00 every 12 Medicin hours. e diflupredna 2018- Yes [id number] 1[drp] Place 1 [facility] te 5-11 Drop into College (DUREZOL) 00:00: the right of 0.05 % 00 eye four Medicin ophthalmic times e emulsion daily. VALTREX 1 g Yes [id number] 1000mg Take 1 Tab [facility] tablet 5-11 by mouth 3 [place] 00:00: times of 00 daily. Medicin e COMBIGAN 2018- Yes [id number] 1[drp] Place 1 [place] 0.2-0.5 % 5-11 Drop into Colle ge ophthalmic 00:00: both eyes of solution 00 every 12 Medicin hours. e diflupredna 2018- Yes [id number] 1[drp] Place 1 Dom te 5-11 Drop into College (DUREZOL) 00:00: the right of 0.05 % 00 eye four Medicin ophthalmic times e emulsion daily. VALTREX 1 g Yes [id number] 1000mg Take 1 Tab Dom tablet 5-11 by mouth 3 [place] 00:00: times of 00 daily. Medicin e COMBIGAN 2018- Yes [id number] 1[drp] Place 1 [place] 0.2-0.5 % [...] [place] 0.005 % 6-28 GTT IN [place] ophthalmic 00:00: BOTH EYES of solution 00 HS Medicin e XALATAN Yes INSTILL 1 [place] 0.005 % 6-28 GTT IN [place] ophthalmic 00:00: BOTH EYES of solution 00 HS Medicin e XALATAN 2017-0 Yes INSTILL 1 [place] 0.005 % 6-28 GTT IN [place] ophthalmic 00:00: BOTH EYES of solution 00 HS Medicin e XALATAN 2016-0 Yes INSTILL 1 [place] 0.005 % 6-28 GTT IN [place] ophthalmic 00:00: BOTH EYES of solution 00 HS Medicin e XALATAN 2016-0 Yes INSTILL 1 [place] 0.005 % 6-28 GTT IN [place] ophthalmic 00:00: BOTH EYES of solution 00 HS Medicin e XALATAN 2016-0 Yes INSTILL 1 [place] 0.005 % 6-28 GTT IN [place] ophthalmic 00:00: BOTH EYES of solution 00 HS Medicin e XALATAN 2016-0 Yes INSTILL 1 [place] 0.005 % 6-28 GTT IN [place] ophthalmic 00:00: BOTH EYES of solution 00 HS Medicin e XALATAN 2016-0 Yes INSTILL 1 [place] 0.005 % 6-28 GTT IN [place] ophthalmic 00:00: BOTH EYES of solution 00 HS Medicin e XALATAN 2016-0 Yes INSTILL 1 [place] 0.005 % 6-28 GTT IN [place] ophthalmic 00:00: BOTH EYES of solution 00 HS Medicin e XALATAN 2016-0 Yes INSTILL 1 [place] 0.005 % 6-28 GTT IN [place] ophthalmic 00:00: BOTH EYES of solution 00 HS Medicin e XALATAN 2016-0 Yes INSTILL 1 [place] 0.005 % 6-28 GTT IN [place] ophthalmic 00:00: BOTH EYES of solution 00 HS Medicin e XALATAN 2016-0 Yes INSTILL 1 [place] 0.005 % 6-28 GTT IN [place] ophthalmic 00:00: BOTH EYES of solution 00 HS Medicin e minoxidil Yes TK 1 T PO [place] (LONITEN) 6-26 QD [place] 10 MG 00:00: of tablet Medicin e minoxidil Yes TK 1 T PO [place] (LONITEN) 6-26 QD [place] 10 MG 00:00: of tablet Medicin e minoxidil Yes TK 1 T PO [place] (LONITEN) 6-26 QD [place] 10 MG 00:00: of tablet Medicin e minoxidil Yes TK 1 T PO [place] (LONITEN) 6- QD College 10 MG 00:00: of tablet 00 Medicin e minoxidil Yes TK 1 T PO [place] (LONITEN) 6 QD College 10 MG 00:00: of tablet 00 Medicin e minoxidil Yes TK 1 T PO [place] (LONITEN) 6 QD College 10 MG 00:00: of tablet Medicin e minoxidil Yes TK 1 T PO [place] (LONITEN) 11-21 QD College 10 MG 00:00: of tablet 00 Medicin e minoxidil Yes TK 1 T PO [place] (LONITEN) 11-21 QD College 10 MG 00:00: of tablet 00 Medicin e minoxidil Yes TK 1 T PO [place] (LONITEN) 11-21 QD College 10 MG 00:00: of tablet Medicin e minoxidil Yes TK 1 T PO [place] (LONITEN) 6 QD College 10 MG 00:00: of tablet Medicin e minoxidil Yes TK 1 T PO [place] (LONITEN) 11-21 QD College 10 MG 00:00: of tablet Medicin e minoxidil Yes TK 1 T PO [place] (LONITEN) 6 QD College 10 MG 00:00: of tablet 00 Medicin e amlodipine Yes [facility] College 10 MG 00:00: of tablet 00 Medicin e amlodipine Yes [facility] College 10 MG 00:00: of tablet 00 Medicin e amlodipine Yes [facility] ([facility]) 6-16 College 10 MG 00:00: of tablet 00 Medicin e amlodipine Yes [facility] ([facility]) 6-16 [place] 10 MG 00:00: of tablet 00 Medicin e amlodipine Yes [facility] ([facility]) 6-16 [place] 10 MG 00:00: of tablet 00 Medicin e amlodipine Yes [facility] 6[facility]16 [place] 10 MG 00:00: of tablet 00 Medicin e amlodipine Yes [facility] 6[facility]16 [place] 10 MG 00:00: of tablet 00 Medicin e amlodipine 2017-0 Yes [facility] 6-16 [place] 10 MG 00:00: of tablet 00 Medicin e amlodipine 2017-0 Yes [facility] 6-16 [place] 10 MG 00:00: of tablet 00 Medicin e amlodipine 2017-0 Yes [facility] [address] 10 MG 00:00: of tablet 00 Medicin e amlodipine 2017-0 [address] [place] 10 MG 00:00: of tablet 00 Medicin e amlodipine 2017-0 Yes [facility] [address] [place] 10 MG 00:00: of tablet 00 Medicin e INVOKANA 2017-0 Yes TK [...] College 00:00: of 00 Medicin e INVOKANA 2016- Yes TK 1 T PO [facility] or 100 MG TABS 6-03 QD College 00:00: of 00 Medicin e losartan-hy Yes TK ONE T [facility] [...] Name Name Tdap- (Boostrix, 2019-05-14 Completed Mirtha Chaparro grant Adacel) 00:00:00 Tdap- (Boostrix, 2019-05-14 Completed Mirtha burns Adacel) 00:00:00 - External Influenza Virus 2014-04-04 Completed Mirtha Woods ybold Vaccine, age 6 months 00:00:00 and up Influenza Virus 2014-04-04 Completed Mirtha Woods ybold Vaccine, age 6 months 00:00:00 - E xternal and up Shingles SQ 2014-03-14 Completed Mirtha Woodsybol d (Zostavax) 00:00:00 Shingles SQ 2014-03-14 Completed Mirtha Woodsybol d (Zostavax) 00:00:00 - External Pneumococcal Vaccine, 2014-01-07 Completed Omer woodsy Seybold Polysaccharide 00:00:00 Pneumococcal Vaccine, 2014-01-07 Completed Omer woodsy Seybold Polysaccharide 00:00:00 - External Vital Signs Vital Name Observation Time Observation Value Comments Source HEIGHT 2019-12-23 00:00:00 170.2 cm WEIGHT 2019-12-23 00:00:00 92.987 kg Systolic blood 2022-05-04 14:01:00 124 mm[Hg] Mirtha Edge - pressure External Diastolic blood 2022-05-04 14:01:00 72 mm[Hg] Gomez Bourgeoisold - pressure External Heart rate 2022-05-04 14:01:00 82 /min Mirtha burns - External Body temperature 2022-05-04 14:01:00 36.56 Dina Kenzie nayeli Woodsybskylar - External Respiratory rate 2022-05-04 14:01:00 14 /min Kenzie Edge - External Body height 2022-05-04 14:01:00 172.7 cm Mirtha burns - External Body weight 2022-05-04 14:01:00 97.977 kg Mirtha burns - External BMI 2022-05-04 14:01:00 32.84 kg/m2 Mirtha burns - External Oxygen saturation in 2022-05-04 14:01:00 99 /min Mirtha Edge - Arterial blood by External Pulse oximetry Systolic blood 2021-03-19 14:46:00 156 mm[Hg] Mirtha ybskylar pressure Diastolic blood 2021-03-19 14:46:00 76 mm[Hg] Kelse y Seybold pressure Heart rate 2021-03-19 14:46:00 63 /min Mirtha tylerbogénesis Body temperature 2021-03-19 14:46:00 36.56 Dina Kenzie tyler Seybskylar Respiratory rate 2021-03-19 14:46:00 16 /min Kenzie tyler Seybskylar Body height 2021-03-19 14:46:00 165.1 cm Mirtha tylerbogénesis Body weight 2021-03-19 14:46:00 92.534 kg Mirtha burns BMI 2021-03-19 14:46:00 33.95 kg/m2 Mirtha tylerbogénesis HEIGHT 2019-12-23 00:00:00 170.2 cm WEIGHT 2019-12-23 00:00:00 92.987 kg Systolic blood 2019-12-23 15:05:00 135 mm[Hg] [facility] Medicine Diastolic blood 2019-12-23 15:05:00 70 mm[Hg] [facility] Medicine Heart rate 2019-12-23 15:05:00 48 /min [facility] Systolic blood 2019-12-23 15:05:00 135 mm[Hg] [facility] Diastolic blood 2019-12-23 15:05:00 70 mm[Hg] [facility] Heart rate 2019-12-23 15:05:00 48 /min [facility] Procedures This patient has no known procedures. Plan of Care Planned Activity Planned Date Details Comments Source Future Scheduled 2022-08-01 COVID-[address] Test 15:12:41 (#1) [code = Hospital COVID-19 VACCINE (#1)] Future Scheduled 2022-08-01 COLONOSCOPY [facility] 15:12:41 SCREENING [code = Hospital COLONOSCOPY SCREENING] Future Scheduled 2022-08-01 SHINGLES VACCINES (1 [facility] 15:12:41 of 2) [code = Hospital SHINGLES VACCINES (1 of 2)] Future Scheduled 2022-08-01 65+ PNEUMOCOCCAL [facility] 15:12:41 VACCINE (1 - PCV) Hospital [code = 65+ PNEUMOCOCCAL VACCINE (1 - PCV)] Future Scheduled 2022-08-01 INFLUENZA VACCINE [facility] Test 15:12:41 [code = INFLUENZA Hospital VACCINE] Future Scheduled 2022-05-[address] [facility] Test 00:00:00 (12+) [code = Medical Center DEPRESSION SCREENING (12+)] Future Scheduled 2022-05-29 FALLS RISK SCREENING [facility] Test 00:00:00 [code = FALLS RISK Medical C enter SCREENING] Future Scheduled 2022-04-03 HEPATITIS B VACCINES [facility] 13:39:02 (1 of 3 - 3-dose Hospital series) [code = HEPATITIS B VACCINES (1 of 3 - 3-dose series)] Future Scheduled 2022-04-03 COVID-[address] Test 13:39:02 (#1) [code = Hospital COVID-19 VACCINE (#1)] Future Scheduled 2022-04-03 COLONOSCOPY [facility] 13:39:02 SCREENING [code = Hospital COLONOSCOPY [...] Medical Center INFLUENZA VACCINE (#1)] Future Scheduled 2022-01-[address] [...] Cessation Counseling and Screening (12+)] Future Scheduled 2020-12-[address] [facility] Test 00:00:00 Counseling and Medical Cente r Screening (12+) [code = Tobacco Cessation Counseling and Screening (12+)] Future Scheduled 2013 PNEUMOCOCCAL 65+ YRS [facility] Test 00:00:00 (1 - PCV) [code = Medical Ce nter PNEUMOCOCCAL 65+ YRS (1 - PCV)] Future Scheduled 2013 PNEUMOCOCCAL 65+ YRS [facility] Test 00:00:00 (1 - PCV) [code = Medical Ce nter PNEUMOCOCCAL 65+ YRS (1 - PCV)] Future Scheduled 1998 SHINGLES VACCINES ([address] [facility] Test 00:00:00 of 2) [code = Medical Center SHINGLES VACCINES (1 of 2)] Future Scheduled 1998 SHINGLES VACCINES ([address] [facility] Test 00:00:00 of 2) [code = Medical Center SHINGLES VACCINES (1 of 2)] Future Scheduled 1967-11-18 DTAP/TDAP/TD [facility] 00:[facility] VACCINES (1 - Tdap) Medical Center [code = DTAP/TDAP/TD VACCINES (1 - Tdap)] Future Scheduled 1967-11-18 DTAP/TDAP/TD [facility] Test 00:00:00 VACCINES (1 - Tdap) Medical Center [code = DTAP/TDAP/TD VACCINES (1 - Tdap)] Future Scheduled [address] [facility] Test 00:00:00 SCREENING [code = Medical Ce nter HEPATITIS C SCREENING] Future Scheduled [address] [facility] Test 00:00:00 SCREENING [code = Medical Ce nter HEPATITIS C SCREENING] Future Scheduled 1949-05-19 COVID-[address] [facility] Test 00:00:00 (#1) [code = Medical Center COVID-19 VACCINE (#1)] Future Scheduled 1949-05-19 COVID-[address] [facility] Test 00:00:00 (#1) [code = Medical Center COVID-19 VACCINE (#1)] Future Scheduled [address] [facility] Test 00:00:00 (combo) [code = CT Medical C enter Colonography (combo)] Future Scheduled [address] [facility] 00:00:00 malignant neoplasm Medical C enter of colon (procedure) [code = 445705564] Future Scheduled [address] [facility] Test 00:00:00 malignant neoplasm Medical C enter of colon (procedure) [code = 967019024] Future Scheduled [address] [facility] Test 00:00:00 malignant neoplasm Medical C enter of colon (procedure) [code = 996713852] Future Scheduled [address] [facility] Test 00:00:00 malignant neoplasm Medical C enter of colon (procedure) [code = 729684429] Future Scheduled 1948 Sigmoidoscopy [code [facility] Test 00:00:00 = Sigmoidoscopy] Medical [facility] [facility] Future Scheduled [address] [facility] Test 00:00:00 (combo) [code = CT Medical C enter Colonography (combo)] Future Scheduled [address] [facility] Test 00:00:00 malignant neoplasm Medical C enter of colon (procedure) [code = 062328147] Future Scheduled [address] [facility] Test 00:00:00 malignant neoplasm Medical C enter of colon (procedure) [code = 796080765] Future Scheduled [address] [facility] Test 00:00:00 malignant neoplasm Medical C enter of colon (procedure) [code = 317845272] Future Scheduled [address] [facility] Test 00:00:00 malignant neoplasm Medical C enter of colon (procedure) [code = 073745413] Future Scheduled 1948 Sigmoidoscopy [code [facility] Test 00:00:00 = Sigmoidoscopy] Medical [address] [facility] Future Scheduled TETANUS SHOT (ADULT) [facility] Test [code = TETANUS SHOT of Medi cine (ADULT)] Future Scheduled Diabetic foot [facility] Col lege Test examination of Medicine (regime/therapy) [code = 366700158] Future Scheduled HEPATITIS C [facility]ge Test SCREENING [code = of Medicin e HEPATITIS C SCREENING] Future Scheduled AAA Screen [code = [employer] Test AAA Screen] of Medicine Future Scheduled FALL SCREEN [code = [employer] Test FALL SCREEN] of Medicine Future Scheduled PNEUMOVAX >=65 [facility] Test (PPSV23) [code = of Medicine PNEUMOVAX >=65 (PPSV23)] Future Scheduled FLU VACCINE > 6 [facility] C ollege Test MONTHS [code = FLU of Medici ne VACCINE > 6 MONTHS] Future Scheduled ANNUAL DIABETIC Dom C ollege Test RETINOPATHY of Medicine SCREENING [code = ANNUAL DIABETIC RETINOPATHY SCREENING] Future Scheduled COLON CANCER [facility] [employer] Test SCREENING: of Medicine COLONOSCOPY [code = COLON CANCER SCREENING: COLONOSCOPY] Future Scheduled TETANUS SHOT (ADULT) [employer] Test [code = TETANUS SHOT of Medi cine (ADULT)] Future Scheduled Diabetic foot [facility] Col [facility]ge Test examination of Medicine (regime/therapy) [code = 895154453] Future Scheduled HEPATITIS C [facility] [employer] Test SCREENING [code = of [...] DIABETIC RETINOPATHY SCREENING] Future Scheduled COLON CANCER [facility] Test SCREENING: of Medicine COLONOSCOPY [code = COLON CANCER SCREENING: COLONOSCOPY] Future Scheduled TETANUS SHOT (ADULT) [employer] Test [code = TETANUS SHOT of Medi cine (ADULT)] Future Scheduled Diabetic foot [facility] Col [facility]ge Test examination of Medicine (regime/therapy) [code = 719454795] Future Scheduled HEPATITIS C Dom [facility] Test SCREENING [code = of Medicin e HEPATITIS C SCREENING] Future Scheduled AAA Screen [code = [employer] Test AAA Screen] of Medicine Future Scheduled FALL SCREEN [code = [employer] Test FALL SCREEN] of Medicine Future Scheduled PNEUMOVAX >=65 [facility] Test (PPSV23) [code = of Medicine PNEUMOVAX >=65 (PPSV23)] Future Scheduled FLU VACCINE > 6 [facility] C ollege Test MONTHS [code = FLU of Medici ne VACCINE > 6 MONTHS] Future Scheduled ANNUAL DIABETIC [facility] C [facility]lege Test RETINOPATHY of Medicine SCREENING [code = ANNUAL DIABETIC RETINOPATHY SCREENING] Future Scheduled COLON CANCER [facility] [employer] Test SCREENING: of Medicine COLONOSCOPY [code = COLON CANCER SCREENING: COLONOSCOPY] Future Scheduled TETANUS SHOT (ADULT) [employer] Test [code = TETANUS SHOT of Medi cine (ADULT)] Future Scheduled COLON CANCER [facility] Test SCREENING: of Medicine COLONOSCOPY [code = COLON CANCER SCREENING: COLONOSCOPY] Future Scheduled TETANUS SHOT (ADULT) [employer] Test [code = TETANUS SHOT of Medi cine (ADULT)] Future Scheduled Diabetic foot [facility] Test examination of Medicine (regime/therapy) [code = 937164935] Future Scheduled HEPATITIS C [facility] [employer] Test SCREENING [code = of Medicin e HEPATITIS C SCREENING] Future Scheduled AAA Screen [code = [facility] Test AAA Screen] of Medicine Future Scheduled FALL SCREEN [code = [employer] Test FALL SCREEN] of Medicine Future Scheduled PNEUMOVAX >=65 [facility] Test (PPSV23) [code = of Medicine PNEUMOVAX >=65 (PPSV23)] Future Scheduled HEPATITIS C [facility] [employer] Test SCREENING [code = of Medicin e HEPATITIS C SCREENING] Future Scheduled FLU VACCINE > 6 [facility] C ollege Test MONTHS [code = FLU of Medici ne VACCINE > 6 MONTHS] Future Scheduled ANNUAL DIABETIC [facility] C [facility]lege Test RETINOPATHY of Medicine SCREENING [code = ANNUAL DIABETIC RETINOPATHY SCREENING] Future Scheduled FALL SCREEN [code = [employer] Test FALL SCREEN] of Medicine Future Scheduled PNEUMOVAX >=65 [facility] Test (PPSV23) [code = of Medicine PNEUMOVAX >=65 (PPSV23)] Future Scheduled COLON CANCER [facility] [employer] Test SCREENING: of Medicine COLONOSCOPY [code = COLON CANCER SCREENING: COLONOSCOPY] Future Scheduled TETANUS SHOT (ADULT) [employer] Test [code = TETANUS SHOT of Medi cine (ADULT)] Future Scheduled Diabetic foot [facility] Col [facility]ge Test examination of Medicine (regime/therapy) [code = 747438422] Future Scheduled HEPATITIS C [facility] [employer] Test SCREENING [code = of [...] > 6 MONTHS] Future Scheduled ANNUAL DIABETIC [facility] C ollege Test RETINOPATHY of Medicine SCREENING [code = ANNUAL DIABETIC RETINOPATHY SCREENING] Future Scheduled PREVNAR >= 65 Dom Col [facility] Test (PCV13) [code = of Medicine PREVNAR >= 65 (PCV13)] Future Scheduled FLU VACCINE > 6 [facility] C ollege Test MONTHS [code = FLU of Medici ne VACCINE > 6 MONTHS] Future Scheduled COLON CANCER [facility] Test SCREENING: of Medicine COLONOSCOPY [code = COLON CANCER SCREENING: COLONOSCOPY] Future Scheduled TETANUS SHOT (ADULT) [employer] Test [code = TETANUS SHOT of Medi cine (ADULT)] Future Scheduled Diabetic foot [facility] Col [facility]ge Test examination of Medicine (regime/therapy) [code = 027963909] Future Scheduled HEPATITIS C [facility] [employer] Test SCREENING [code = of Medicin e HEPATITIS C SCREENING] Future Scheduled AAA Screen [code = [employer] Test AAA Screen] of Medicine Future Scheduled FALL SCREEN [code = [employer] Test FALL SCREEN] of Medicine Future Scheduled PNEUMOVAX >=65 [facility] Test (PPSV23) [code = of Medicine PNEUMOVAX >=65 (PPSV23)] Future Scheduled FLU VACCINE > 6 [facility] C ollege Test MONTHS [code = FLU of Medici ne VACCINE > 6 MONTHS] Future Scheduled ANNUAL DIABETIC [facility] C [facility]lege Test RETINOPATHY of Medicine SCREENING [code = ANNUAL DIABETIC RETINOPATHY SCREENING] Future Scheduled COLON CANCER [facility] Test SCREENING: of Medicine COLONOSCOPY [code = COLON CANCER SCREENING: COLONOSCOPY] Future Scheduled TETANUS SHOT (ADULT) [employer] Test [code = TETANUS SHOT of Medi cine (ADULT)] Future Scheduled Diabetic foot [facility] Test examination of Medicine (regime/therapy) [code = 631101513] Future Scheduled HEPATITIS C [facility] Test SCREENING [code = of Medicin e HEPATITIS C SCREENING] Future Scheduled ZOSTER VACCINE (1 of [employer] Test 2) [code = ZOSTER of Medicin e VACCINE (1 of 2)] Future Scheduled AAA Screen [code = [employer] Test AAA Screen] of Medicine Future Scheduled FALL SCREEN [code = [employer] Test FALL SCREEN] of Medicine Future Scheduled PNEUMOVAX >=65 [facility] Test (PPSV23) [code = of Medicine PNEUMOVAX >=65 (PPSV23)] Future Scheduled FLU VACCINE > 6 [facility] C ollege Test MONTHS [code = FLU of Medici ne VACCINE > 6 MONTHS] Future Scheduled ANNUAL DIABETIC [facility] C [facility]lege Test RETINOPATHY of Medicine SCREENING [code = ANNUAL DIABETIC RETINOPATHY SCREENING] Future Scheduled COLON CANCER [facility] Test SCREENING: of Medicine COLONOSCOPY [code = COLON CANCER SCREENING: COLONOSCOPY] Future Scheduled TETANUS SHOT (ADULT) [employer] Test [code = TETANUS SHOT of Medi cine (ADULT)] Future Scheduled Diabetic foot [facility] Col [facility] Test examination of Medicine (regime/therapy) [code = 159950146] Future Scheduled HEPATITIS C [facility] Test SCREENING [code = of Medicin e HEPATITIS C SCREENING] Future Scheduled ZOSTER VACCINE (1 of [employer] Test 2) [code = ZOSTER of Medicin e VACCINE (1 of 2)] Future Scheduled AAA Screen [code = [employer] Test AAA Screen] of Medicine Future Scheduled FALL SCREEN [code = [facility] or [facility] Test FALL SCREEN] of Medicine Future Scheduled PNEUMOVAX >=65 [facility] Test (PPSV23) [code = of Medicine PNEUMOVAX >=65 (PPSV23)] Future Scheduled FLU VACCINE > 6 [facility] C ollege Test MONTHS [code = FLU of Medici ne VACCINE > 6 MONTHS] Future Scheduled ANNUAL DIABETIC [facility] C [facility]lege Test RETINOPATHY of Medicine SCREENING [code = ANNUAL DIABETIC RETINOPATHY SCREENING] Future Scheduled COLON CANCER [facility] Test SCREENING: of Medicine COLONOSCOPY [code = COLON CANCER SCREENING: COLONOSCOPY] Future Scheduled TETANUS SHOT (ADULT) [employer] Test [code = TETANUS SHOT of Medi cine (ADULT)] Future Scheduled Diabetic foot [facility] Col [facility] Test examination of Medicine (regime/therapy) [code = 281198718] Future Scheduled HEPATITIS C [facility] Test SCREENING [code = of Medicin e HEPATITIS C SCREENING] Future Scheduled ZOSTER VACCINE (1 of [employer] Test 2) [code = ZOSTER of Medicin e VACCINE (1 of 2)] Future Scheduled AAA Screen [code = [employer] Test AAA Screen] of Medicine Future Scheduled FALL SCREEN [code = [employer] Test FALL SCREEN] of Medicine Future Scheduled PNEUMOVAX >=65 [facility] Test (PPSV23) [code = of Medicine PNEUMOVAX >=65 (PPSV23)] Future Scheduled FLU VACCINE > 6 Dom C [facility]lege Test MONTHS [code = FLU of Medici ne VACCINE > 6 MONTHS] Future Scheduled ANNUAL DIABETIC [facility] C [facility]lege Test RETINOPATHY of Medicine SCREENING [code = ANNUAL DIABETIC RETINOPATHY SCREENING] Future Scheduled COLON CANCER [facility] [employer] Test SCREENING: of Medicine COLONOSCOPY [code = COLON CANCER SCREENING: COLONOSCOPY] Future Scheduled TETANUS SHOT (ADULT) [employer] Test [code = TETANUS SHOT of Medi cine (ADULT)] Future Scheduled HEPATITIS C [facility] Test SCREENING [code = of Medicin e HEPATITIS C SCREENING] Future Scheduled FALL SCREEN [code = [employer] Test FALL SCREEN] of Medicine Future Scheduled PNEUMOVAX >=65 [facility] Test (PPSV23) [code = of Medicine PNEUMOVAX >=65 (PPSV23)] Future Scheduled PREVNAR >= 65 [facility] Col [facility]ge Test (PCV13) [code = of Medicine PREVNAR >= 65 (PCV13)] Future Scheduled FLU VACCINE > 6 [facility] C ollege Test MONTHS [code = FLU of Medici ne VACCINE > 6 MONTHS] Future Scheduled [place] REPAIR CORNEA Ordered: [facility] Test LAC,PERF,NO UVEAL 12/20/2019 of Medicin e [code = 76568] Future Scheduled COLON CANCER [facility] Test SCREENING: of Medicine COLONOSCOPY [code = COLON CANCER SCREENING: COLONOSCOPY] Future Scheduled TETANUS SHOT (ADULT) [employer] Test [code = TETANUS SHOT of Medi cine (ADULT)] Future Scheduled Diabetic foot [facility] Col [facility]ge Test examination of Medicine (regime/therapy) [code = 530224876] Future Scheduled HEPATITIS C [facility] [employer] Test SCREENING [code = of Medicin e HEPATITIS C SCREENING] Future Scheduled AAA Screen [code = [employer] Test AAA Screen] of Medicine Future Scheduled FALL SCREEN [code = [employer] Test FALL SCREEN] of Medicine Future Scheduled PNEUMOVAX >=65 [facility] Co [facility] Test (PPSV23) [code = of Medicine PNEUMOVAX >=65 (PPSV23)] Future Scheduled FLU VACCINE > 6 [facility] C ollege Test MONTHS [code = FLU of Medici ne VACCINE > 6 MONTHS] Future Scheduled ANNUAL DIABETIC [facility] C [facility]lege Test RETINOPATHY of Medicine SCREENING [code = ANNUAL DIABETIC RETINOPATHY SCREENING] Future Scheduled COLON CANCER [facility] Test SCREENING: of Medicine COLONOSCOPY [code = COLON CANCER SCREENING: COLONOSCOPY] Future Scheduled CT ORBITS W WO 1 Occurrences [facility] C [facility]lege Test CONTRAST [code = starting of Medicine 30087] 12/20/2019 until 12/19/2020 Encounters Start End Encounter Admission Attending Care Care Encounter Source Date/Time Date/Time Type Type Clinicians Facility Department ID 2021-03-03 Outpatient CAL HUANG Surgery [id number] [facility] 01:06:36 DEVONTE 2019-09-24 Inpatient SAMIRA Crowley [facility] [id number] [facility] 08:00:[address] [place] [address] 2019-08-08 Inpatient [facility] [id number] SLE 22:36:00 [id number] 2022-05-04 2022-05-04 Outpatient LAB90 MIRTHA SOLIS [id number] [facility] 09:00:00 09:00:00 Sejoseol d 2022-05-04 2022-05-04 Outpatient MIRTHA ALFARO [id number] [facility] 08:00:00 08:00:00 ROXY Bourgeoisol homer 2022-05-04 2022-05-04 Outpatient MIRTHA ALFARO [id number] [facility] 00:00:00 00:00:00 ROXY Seybol d 2022-05-02 2022-05-02 Outpatient MIRTHA KHAN [id number] [facility] 00:00:00 00:00:00 AVERY Seybol d 2022-05-02 2022-05-02 Outpatient MIRTHA ALFARO [id number] [facility] 00:00:00 00:00:00 ROXY Seybol d 2021-07-15 2021-07-15 Outpatient AYSE HUANG [id number] [facility] 12:34:28 13:54:29 DEVONTE sam of Medicin e 2021-06-24 2021-06-24 Outpatient MIRTHA ALFARO [id number] [facility] 15:00:00 15:00:00 ROXY Seybol d 2021-06-10 2021-06-10 [facility] [id number] [facility] 12:25:46 14:50:53 DEVONTE Colle ge of Medicin e 2021-05-13 2021-05-13 Outpatient [facility] [id number] [facility] 12:47:48 15:00:02 DEVONTE Colle ge of Medicin e 2021-05-12 2021-05-12 Outpatient LORI VIVEROS MIRTHA SOLIS [id number] [facility] 00:00:00 00:00:00 Seybol d 2021-05-11 2021-05-11 Outpatient MIRTHA ALFARO [id number] [facility] 00:00:00 00:00:00 ROXY Seybol d 2021-03-19 2021-03-19 Outpatient LAB90 MIRTHA SOLIS [id number] [facility] 11:00:00 11:00:00 Seybol d 2021-03-19 2021-03-19 Office RogelioJairo rosales 1.2.840.114 [id number] [facility] 09:44:50 10:29:50 Visit Roxy Retana 350.1.13.13 Se batsheva Miller 1.2.7.2.686 [id number] 2021-01-14 2021-01-14 Outpatient LAB90 MIRTHA SOLIS [id number] [facility] 10:15:00 10:15:00 Seybol d 2021-01-14 2021-01-14 Outpatient LORI VIVEROS MIRTHA SOLIS [id number] [facility] 00:00:00 00:00:00 Seybol d 2020-12-18 2020-12-18 Outpatient MIRTHA ALFARO [id number] [facility] 10:30:00 10:30:00 ROXY Seybol d 2020-11-03 2020-11-03 [facility] [id number] [facility] 13:14:18 14:57:56 DEVONTE Colle ge of Medicin e 2020-03-02 2020-03-02 Vernon Huang, [facility] 1.2.840.114 [id number] 10:45:08 10:55:08 Visit Devonte AMBULATOR 350.1.13.21 Evelyn Y 0.2.7.2.686 [id number] 300 2020-03-02 2020-03-02 Office MYRON Huang 1.2.840.114 [id number] [facility] 10:45:08 10:55:08 Visit Devonte AMBULATOR 350.1.13.21 College Evelyn Y 0.2.7.2.686 of [id number] [facility] 300 e 2020-01-28 2020-01-28 Office Reina, [facility] 1.2.840.114 [id number] 12:31:31 12:41:31 Visit Devonte AMBULATOR 350.1.13.21 Evelyn Y 0.2.7.2.686 [id number] 300 2020-01-28 2020-01-28 Office Reina, [facility] 1.2.840.[id number] [place] [address] 12:31:31 12:41:31 Visit Devonte AMBULATOR 350.1.13.21 College Evelyn Y 0.2.7.2.686 of [id number] [facility] 300 e 2020-01-20 2020-01-20 Office Reina, [facility] 1.2.840.114 [id number] 10:26:35 10:36:35 Visit Devonte AMBULATOR 350.1.13.21 Evelyn Y 0.2.7.2.686 [id number] 300 2020-01-20 2020-01-20 Office Reina, [facility] 1.2.840.114 [id number] [facility] 10:26:35 10:36:35 Visit Devonte AMBULATOR 350.1.13.21 College Evelyn Y 0.2.7.2.686 of [id number] [facility] 300 e 2020-01-06 2020-01-06 Office Reina, [facility] 1.2.840.114 [id number] 07:26:28 07:36:28 Visit Devonte AMBULATOR 350.1.13.21 Evelyn Y 0.2.7.2.686 [id number] 300 2020-01-06 2020-01-06 Office Reina, [facility] 1.2.840.[id number] [place] [address] 07:26:28 07:36:28 Visit Devonte AMBULATOR 350.1.13.21 College Evelyn Y 0.2.7.2.686 of [id number] Medi reginaldo 300 e 2019-12-30 2019-12-30 Office Reina, [facility] 1.2.840.114 [id number] 09:40:16 09:50:16 Visit Devonte AMBULATOR 350.1.13.21 Evelyn Y 0.2.7.2.686 [id number] 300 2019-12-30 2019-12-30 Office Reina, [facility] 1.2.840.[id number] [place] [address] 09:40:16 09:50:16 Visit Devonte AMBULATOR 350.1.13.21 College Evelyn Y 0.2.7.2.686 of [id number] Medi reginaldo 300 e 2019-12-26 2019-12-26 Office Reina, [facility] 1.2.840.114 [id number] 15:46:14 15:56:14 Visit Devonte AMBULATOR 350.1.13.21 Evelyn Y 0.2.7.2.686 [id number] 300 2019-12-26 2019-12-26 Office [place], [facility] 1.2.840.[id number] [place] [address] 15:46:14 15:56:14 Visit Devonte AMBULATOR 350.1.13.21 College Evelyn Y 0.2.7.2.686 of [id number] Medi reginaldo 300 e 2019-12-24 2019-12-24 Office Reina, [facility] 1.2.840.114 [id number] 12:29:14 12:39:14 Visit Devonte AMBULATOR 350.1.13.21 Evelyn Y 0.2.7.2.686 [id number] 300 2019-12-24 2019-12-24 Office Reina, [facility] 1.2.840.[id number] [place] [address] 12:29:14 12:39:14 Visit Devonte AMBULATOR 350.1.13.21 College Evelyn Y 0.2.7.2.686 of [id number] Medi reginaldo 300 e 2019-12-23 2019-12-23 Office [place] 1.2.840.114 [id number] 09:45:01 10:26:23 Visit Devonte AMBULATOR 350.1.13.21 Evelyn Y 0.2.7.2.686 [id number] 300 2019-12-23 2019-12-23 Office [place] 1.2.840.114 [id number] [facility] 09:45:01 10:26:23 Visit Devonte AMBULATOR 350.1.13.21 College Evelyn Y 0.2.7.2.686 of [id number] Medi reginaldo 300 e 2019-12-23 2019-12-23 Outpatient [facility] [id number] [address] [place] [address] 00:00:00 00:00:00 2019-12-21 2019-12-21 Office [place] 1.2.840.114 [id number] 09:00:00 09:10:00 Visit Devonte AMBULATOR 350.1.13.21 Evelyn Y 0.2.7.2.686 [id number] 300 2019-12-21 2019-12-21 Office [place] 1.2.840.[id number] [place] [address] 09:00:00 09:10:00 Visit Devonte AMBULATOR 350.1.13.21 College Evelyn Y 0.2.7.2.686 of [id number] Medi reginaldo 300 e 2019-12-20 2019-12-20 Office [place] 1.2.840.114 [id number] 13:44:32 17:12:04 Visit Devonte AMBULATOR 350.1.13.21 Evelyn Y 0.2.7.2.686 [id number] 300 2019-12-20 2019-12-20 Office [place] 1.2.840.114 [id number] 58 [facility] 13:44:32 17:12:04 Visit Devonte AMBULATOR 350.1.13.21 College Evelyn Y 0.2.7.2.686 of [phone] Medi reginaldo 300 e 2019-12-20 2019-12-20 Outpatient [facility] [id number] [address] [place] [address] 00:00:00 00:00:00 DEVONTE [address] 2019-07-23 2019-07-23 Office Reina [facility] [id number] 13:06:08 13:16:08 Visit Devonte AMBULATOR 350.1.13.21 Evelyn Y 0.2.7.2.686 [id number] 300 2019-07-23 2019-07-23 [facility] Reina [facility] [id number] [place] [address] 13:06:08 13:16:08 Visit Devonte AMBULATOR 350.1.13.21 College Evelyn Y 0.2.7.2.686 of [id number] Medi reginaldo 300 e 2019-01-15 2019-01-15 [facility] Reina [facility] [id number] 14:15:43 14:30:43 Visit Devonte ESCALERAATOR 350.1.13.21 Evelyn Y 0.2.7.2.686 [id number] 300 2019-01-15 2019-01-15 [facility] [id number] 74 [facility] 14:15:43 14:30:43 Visit Devonte AMBULATOR 350.1.13.21 College Evelyn Y 0.2.7.2.686 of [id number] [facility] 300 e Results Test Description Test Time Test Comments Results Result Comments Source POCT-GLUCOSE METER 2019-12-25 07:30:00 Test Item Value Reference Range Interpretation Comme [facility] POC-GLUCOSE METER (BEAKER) 129 mg/dL 70-110 H : TESTED AT [facility] [address] [place] [address], (test code = 1538) [facility] [address]: Utilities Operator/Techni adalid ID = [id number] for [place] GOOD TTWilber CALCULI URINARY WITH [id number] 15:09:00 Test Item Value Reference Range Interpretation Comments ST COLOR (test code = [place] () COLST) ST SIZE (test code = [...] [facility] at: . - XR FLUOROSCOPY 0-60 [id number] 10:11:00 Name: CHRISTINA NICHOLS [place] : 1950 Age/S: 68 / M [address] [address] [place] Unit #: [id number] Loc: [place] [address] Phys: Franko Crowley MD Acct: [id number] Dis Date: Status: REG [facility] PHONE #: [phone] Exam Date: 09/24/2019 0845 FAX #: Reason: LASER LITHO WITH STENT EXAMS: CPT: [id number] XR FLUOROSCOPY 0-60 MIN 15682 Fluoro Time: 28 SEC DAP (Gy m2): [...] PAGE 1 Signed Report Name: CHRISTINA NICHOLS [place] : 1950 Age/S: 68 / M [address] [place] Unit #: [id number] Loc: [place] [address] Phys: Franko Crowley MD Acct: [id number] Dis Date: Status: REG [facility] PHONE #: [phone] Exam Date: 09/24/2019 0845 FAX #: Reason: LASER LITHOWITH STENT EXAMS: CPT: [id number] XR FLUOROSCOPY 0-60 MIN 68931 Fluoro Time: 28 SEC DAP (Gy m2): Air Kerma (mGy): (Continued) Technologist: Maggy Monge RT(R) Trnestherb Date/Time: 09/24/2019 (1011) [id number] Orig Print D/T: S: 09/24/2019 (1015) PAGE 2 Signed ReportGLUCOSE BEDSIDE [id number] 06:32:00 Test Item Value Reference Range Interpretation Comments GLUCOSE BEDSIDE TESTING (test code 141 mg/dL 70-110 H = GLUBED) URINALYSIS [id number] 14:48:00 Test Item Value Reference Range Interpretation Comments RBC UA (BEAKER) (test code = 519) 1072 /HPF WBC UA (BEAKER) (test code = 520) 1555 /HPF Utilities Operator ID - techURINALYSIS WITH MICROSCOPIC IF [id number] 14:37:00 Test Item Value Reference Range Interpretation [...] = 463) SOURCE(BEAKER) (test code = 2795) Utilities Operator ID - [auto]FL, FLUORO, NON-SPECIFIC, UP TO 1 [id number] 11:28:00 Reason for exam:->ureter stoneFINAL REPORT Fluoroscopic [...] MDReport Verified Date/Time: 08/10/2019 11:28:32 Reading Location: [address] Transitional Reading Room -GLUCOSE [id number] 11:17:00 Test Item Value Reference Range Interpretation Comments POC-GLUCOSE METER 146 mg/dL 70-110 H : TESTED A T [facility] 6720 (BEAKER) (test code = [facility], 1538) [address]: Utilities Operator/Techni adalid ID = [id number] for FRANCIA JULES BASIC METABOLIC [id number] 06:56:00 Test Item Value Reference Range Interpretation [...] S NOT APPLICABLE FOR DIALYSIS PATIEN TS. Utilities Operator ID - KIKA MCBC W/PLT COUNT & AUTO [id number] 06:35:00 Test Item Value Reference Range Interpretation [...] PERCENT (BEAKER) (test code = 2801) POCT-GLUCOSE [id number] 23:53:00 Test Item Value Reference Range Interpretation Comments POC-GLUCOSE METER 168 mg/dL 70-110 H : TESTED A T [facility] 6720 (BEAKER) (test code = [facility]UI [address], 1538) [address]: Utilities Operator/Techni adalid ID = [id number] for HENNA DURBIN MS RAD, CHEST, 1 VIEW, NON [id number] 13:37:00Reason for exam:->pre-opShould this be performed at the bedside?->YesFINAL REPORT INDICATION: pre-op COMPARISON: None TECHNIQUE: Single frontal viewof the chest. FINDINGS: Lungs and pleura: Clear lungs. No effusion.Heart and mediastinum: Normal heart size. Unremarkable mediastinal contours.Osseous structures: No acute abnormality.Other: None. IMPRESSION: No acute intrathoracic abnormality. Signed: Paras Batista Verified Date/Time: 08/09/2019 13:37:32 Reading Location: [facility] Radiology Reading Room URINALYSIS W/ REFLEX URINE [...] 3 /LPF 514) SOURCE(BEAKER) (test code = 4335) Utilities Operator ID - [auto]Utilities Operator ID - hankBASIC METABOLIC [id number] 07:13:00 Test Item Value Reference Range Interpretation [...] S NOT APPLICABLE FOR DIALYSIS PATIEN TS. Utilities Operator ID - KIKA MCBC W/PLT COUNT & AUTO [id number] 06:04:00 Test Item Value Reference Range Interpretation [...] PERCENT (BEAKER) (test code = 2801) POCT-GLUCOSE [id number] 08:29:00 Test Item Value Reference Range Interpretation Comments POC-GLUCOSE METER 178 mg/dL 70-110 H TESTED AT [facility] 7200 (BEAKER) (test code CAMBKATG E BLDG B ALVARES = 1538) [place] [address]
--- NOTE | 2022-08-01 15:50 | ER ---
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 15:10 Coronavirus screen: At this time, the client does not indicate any symptoms associated bp with coronavirus-19. Ebola Screen: No symptoms or risks identified at this time. 15:10 Method Of Arrival: Stretcher bp 15:22 Initial Sepsis Screen: Does the patient meet any 2 criteria? No. Patient's initial ph sepsis screen is negative. Does the patient have a suspected source of infection? No. Patient's initial sepsis screen is negative. Risk Assessment: Do you want to hurt yourself or someone else? Patient reports no desire to harm self or others. 15:22 Acuity: JESSIKA 2 ph 15:22 Onset of symptoms was August 01, 2022. ph Triage Assessment: 15:17 General: Appears in no apparent distress. Behavior is calm, cooperative, appropriate bp for age. Pain: Denies pain. EENT: No deficits noted. Neuro: No deficits noted. Cardiovascular: Rhythm is sinus bradycardia. Respiratory: No deficits noted. GI: No signs and/or symptoms were reported involving the gastrointestinal system. : No signs and/or symptoms were reported regarding the genitourinary system. Derm: No deficits noted. Musculoskeletal: No deficits noted. Historical: - Allergies: 15:13 No Known Allergies; bp - Home Meds: 15:13 metoprolol tartrate 25 mg oral tab 1 tab once daily [Active]; cholecalciferol (vitamin bp D3) 25 mcg (1,000 unit) Oral cap [Active]; Eliquis 2.5 mg oral tab 1 tab [Active]; fluorometholone 0.25 % ophthalmic (eye) drps 1 drop 2 times per day [Active]; omega-3 fatty acids 1,000 mg Oral cap daily [Active]; minoxidil 10 mg Oral tab 1 tab once daily [Active]; metformin 500 mg Oral tr24 2 tabs 2 times per day [Active]; latanoprost 0.005 % ophthalmic (eye) drop 1 drop once daily [Active]; losartan-hydrochlorothiazide 100-25 mg Oral tab 1 tab once daily [Active]; - PMHx: 15:13 Diabetes - NIDDM; BRADYCARDIA; High Cholesterol; Hypertension; Atrial fibrillation; bp - Immunization history:: Adult Immunizations up to date. - Social history:: Smoking status: unknown. Screenin:15 [facility] ED Fall Risk Assessment (Adult) History of falling in the last 3 months, bp including since admission No falls in past 3 months (0 pts). Abuse screen: Denies threats or abuse. Denies injuries from another. Nutritional screening: No deficits noted. Tuberculosis screening: No symptoms or risk factors identified. Assessment: 15:15 General: SEE TRIAGE NOTE. bp 17:03 Reassessment: Patient appears in no apparent distress at this time. Patient and/or ph family updated on plan of care and expected duration. Pain level reassessed. Patient is alert, oriented x 3, equal unlabored respirations, skin warm/dry/pink. 18:30 Reassessment: TRANSFER IN PROCESS, APPROVAL PENDING. bp 19:48 Reassessment: Patient appears in no apparent distress at this time. Patient and/or kl family updated on plan of care and expected duration. Pain level reassessed. Patient is alert, oriented x 3, equal unlabored respirations, skin warm/dry/pink. Patient states feeling better. Patient states symptoms have improved. Cardiovascular: Rhythm is sinus bradycardia with unifocal PVCs. 20:40 Reassessment: Patient appears in no apparent distress at this time. Patient and/or pf1 family updated on plan of care and expected duration. Pain level reassessed. Patient is alert, oriented x 3, equal unlabored respirations, skin warm/dry/pink. Patient states feeling better. Patient states symptoms have improved. 21:35 General: Patient report given to Fausto Masters dispatcher tow truck with [facility]. pf1 21:40 Reassessment: Patient appears in no apparent distress at this time. Patient and/or pf1 family updated on plan of care and expected duration. Pain level reassessed. Patient is alert, oriented x 3, equal unlabored respirations, skin warm/dry/pink. Patient states feeling better. Patient states symptoms have improved. Vital Signs: 15:10 BP 126 / 62; Pulse 33; Resp 16; Temp 98; Pulse Ox 96% on R/A; bp 15:41 BP 144 / 62; Pulse 45; Resp 20; Pulse Ox 97% ; bp 17:04 BP 141 / 63; Pulse 50; Resp 18; Pulse Ox 98% on R/A; ph 18:30 BP 135 / 75; Pulse 55; Resp 18; Pulse Ox 97% ; bp 19:49 BP 129 / 60; Pulse 50; Resp 18; Pulse Ox 98% on R/A; kl 20:30 BP 126 / 61; Pulse 47; Resp 18; Pulse Ox 98% on R/A; Pain 0/10; pf1 21:30 BP 146 / 72; Pulse 54; Resp 16; Temp 98.1; Pulse Ox 100% on R/A; Pain 0/10; pf1 ED Course: 15:11 Patient arrived in ED. bp 15:12 Jason Coffman DO is Attending Physician. ms3 15:15 Arm band placed on. bp 15:15 Patient has correct armband on for positive identification. Bed in low position. Call bp light in reach. Side rails up X2. 15:17 Sagar Burns, RN is Primary Nurse. bp 15:18 Inserted saline lock: 22 gauge in right antecubital area, using aseptic technique. bp Blood collected. 15:22 Triage completed. ph 15:38 XRAY Chest (1 view) Sent. bp 15:39 Troponin HS Sent. bp 15:39 CBC with Diff Sent. bp 15:39 Basic Metabolic Panel Sent. bp 15:41 Ptt, Activated Sent. bp 15:41 Protime (+inr) Sent. bp 15:41 EKG done, by ED staff, reviewed by Jason Coffman DO. em1 17:[address] [facility]. bd 21:43 No provider procedures requiring assistance completed. Patient transferred, IV remains pf1 in place. Administered Medications: No medications were administered Medication: 15:15 VIS not applicable for this client. bp Outcome: 15:50 ER care complete, transfer ordered by . ms3 21:43 Transferred by ground EMS to [facility], Transfer form completed. pf1 X-rays sent w/ patient. Note: to [facility] 21:43 Condition: stable 21:43 Instructed on the need for transfer, Demonstrated understanding of instructions. 21:43 Patient left the ED. pf1 Signatures: Yamile Melchor Kimberly, RN RN Rogerio Bui em1 Monica Pacheco RN RN Sagar Burns RN RN Jason Rosen DO DO ms3 [place] sanon RN RN pf1 Corrections: (The following items were deleted from the chart) 15:15 15:13 PSHx: cataract repair; bp bp 15:15 15:13 PSHx: kidney stone removal; bp bp
--- NOTE | 2022-08-01 15:50 | EDPHYS ---
Physician Documentation [facility] Name: Jose Perry Age: 71 yrs Sex: Male : 1950 Arrival Date: 08/01/2022 Time: 15:11 Bed 4 Private MD: ED Physician Jason Coffman HPI: 08/01 15:53 This 71 yrs old Male presents to ER via Stretcher with complaints of SENT FROM CABLE TENDER ms3 FOR TRANSFER. 15:53 71-year-old male with past medical history of diabetes, hyperlipidemia, hypertension, ms3 bradycardia presents from [facility] after cardioversion for atrial fibrillation with marked bradycardia. Per Dr. Peoples patient is having intermittent complete heart block. Patient denies pain. Patient denies lightheadedness, chest pain, shortness of breath.. Historical: - Allergies: 15:13 No Known Allergies; bp - Home Meds: 15:13 metoprolol tartrate 25 mg oral tab 1 tab once daily [Active]; cholecalciferol (vitamin bp D3) 25 mcg (1,000 unit) Oral cap [Active]; Eliquis 2.5 mg oral tab 1 tab [Active]; fluorometholone 0.25 % ophthalmic (eye) drps 1 drop 2 times per day [Active]; omega-3 fatty acids 1,000 mg Oral cap daily [Active]; minoxidil 10 mg Oral tab 1 tab once daily [Active]; metformin 500 mg Oral tr24 2 tabs 2 times per day [Active]; latanoprost 0.005 % ophthalmic (eye) drop 1 drop once daily [Active]; losartan-hydrochlorothiazide 100-25 mg Oral tab 1 tab once daily [Active]; - PMHx: 15:13 Diabetes - NIDDM; BRADYCARDIA; High Cholesterol; Hypertension; Atrial fibrillation; bp - Immunization history:: Adult Immunizations up to date. - Social history:: Smoking status: unknown. ROS: 15:53 Constitutional: Negative for fever, and chills. Neck: Negative for injury, pain, and ms3 swelling, Cardiovascular: Negative for chest pain, and palpitations. Respiratory: Negative for shortness of breath, cough, wheezing, and pleuritic chest pain, Abdomen/GI: Negative for abdominal pain, nausea, vomiting, diarrhea, and constipation, MS/Extremity: Negative for injury and deformity, Skin: Negative for injury, rash, and discoloration. 15:53 All other systems are negative. Exam: 15:53 Constitutional: This is a well developed, well nourished patient who is awake, alert, ms3 and in no acute distress. Head/Face: Normocephalic, atraumatic. Neck: Trachea midline, no cervical lymphadenopathy. Supple, full range of motion without nuchal rigidity, or vertebral point tenderness. No Meningismus. Chest/axilla: Normal chest wall appearance and motion. Nontender with no deformity. 15:53 Cardiovascular: Rate: bradycardic, Rhythm: regular, Pulses: no pulse deficits are appreciated, Heart sounds: normal, normal S1and S2. 15:53 ECG was reviewed by the Attending Physician. Vital Signs: 15:10 BP 126 / 62; Pulse 33; Resp 16; Temp 98; Pulse Ox 96% on R/A; bp 15:41 BP 144 / 62; Pulse 45; Resp 20; Pulse Ox 97% ; bp 17:04 BP 141 / 63; Pulse 50; Resp 18; Pulse Ox 98% on R/A; ph 18:30 BP 135 / 75; Pulse 55; Resp 18; Pulse Ox 97% ; bp 19:49 BP 129 / 60; Pulse 50; Resp 18; Pulse Ox 98% on R/A; kl 20:30 BP 126 / 61; Pulse 47; Resp 18; Pulse Ox 98% on R/A; Pain 0/10; pf1 21:30 BP 146 / 72; Pulse 54; Resp 16; Temp 98.1; Pulse Ox 100% on R/A; Pain 0/10; pf1 MDM: 15:18 Patient medically screened. ms3 15:53 Differential Diagnosis Beta kenan overdose vs NC vs sick sinus . ms3 18:31 Data reviewed: vital signs, nurses notes, lab test result(s), EKG, radiologic studies, ms3 and as a result, I will Transfer of [facility] is at capacity. Consideration of Admission/Observation Will transfer. Management of patient was discussed with the following: Hospitalist: Dr Cornell Navarro. Independent interpretation of the following test(s) in the Emergency Department EKG: See my EKG interpretation above property assessment monitor: rate is 47 beats/min, Rhythm is regular, sinus bradycardia, with no ectopy, Interpretation: normal rhythm, bradycardia. Care significantly affected by the following chronic conditions: Diabetes, Hypertension. Counseling: I had a detailed discussion with the patient and/or guardian regarding: the historical points, exam findings, and any diagnostic results supporting the discharge/admit diagnosis, lab results, radiology results, the need to transfer to another facility, [facility] at [facility]. 03 15:23 Order name: Basic Metabolic Panel ms3 08/01 15:23 Order name: CBC with Diff ms3 08/01 15:23 Order name: Troponin HS ms3 08/01 15:23 Order name: XRAY Chest (1 view) ms3 08/01 15:23 Order name: EKG; Complete Time: 15:24 ms3 08/01 15:23 Order name: Cardiac monitoring; Complete Time: 15:32 ms3 08/01 15:23 Order name: EKG - Nurse/Tech; Complete Time: 15:34 ms3 08/01 15:23 Order name: IV Saline Lock; Complete Time: 15:34 ms3 08/01 15:23 Order name: Labs collected and sent; Complete Time: 15:38 ms3 08/01 15:23 Order name: O2 Per Protocol; Complete Time: 15:29 ms3 08/01 15:23 Order name: O2 Sat Monitoring; Complete Time: 15:29 ms3 08/01 15:38 Order name: Protime (+inr) bp 08/01 15:38 Order name: Ptt, Activated bp 08/01 15:59 Order name: Protime (+INR); Complete Time: 16:46 EDMS 08/01 15:59 Order name: PTT, Activated Partial Thromb; Complete Time: 16:46 EDMS 08/01 16:05 Order name: CBC with Automated Diff; Complete Time: 16:46 EDMS 08/01 16:07 Order name: Basic Metabolic Panel; Complete Time: 16:46 EDMS 08/01 16:07 Order name: Troponin High Sensitivity; Complete Time: 16:46 EDMS 08/01 16:37 Order name: RAD; Complete Time: 16:46 EDMS 08/01 16:40 Order name: SARS-COV-2 Antigen Rapid bd 08/01 17:46 Order name: SARS-COV-2 Antigen Rapid; Complete Time: 18:02 EDMS EC:53 Rate is 45 beats/min. Rhythm is regular. QRS [place] is Normal. QRS interval is normal. ms3 Clinical impression: Sinus bradycardia. Interpreted by me. Reviewed by me. Administered Medications: No medications were administered Disposition Summary: 08/01/22 15:50 Transfer Ordered Transfer Location: [facility] ms3 Reason: Higher level of care ms3 Condition: Stable ms3 Problem: new ms3 Symptoms: are unchanged ms3 Accepting Physician: (08/01/22 21:43) pf1 Diagnosis - Bradycardia, unspecified ms3 Forms: - Medication Reconciliation Form ms3 - SBAR form ms3 Signatures: Dispatcher [employer] EDMS Sagar Burns, RN RN bp Jason Coffman DO DO ms3 [place] sanon RN RN pf1 Corrections: (The following items were deleted from the chart) 15:15 15:13 PSHx: cataract repair; bp bp 15:15 15:13 PSHx: kidney stone removal; bp bp 21:43 15:50 ms3 pf1
[2022-08-01 15:56] LABS: Hematocrit 30.6 % (39.6-49.0); Lymphocytes % 10.4 % (15.3-44.8); MCV 96.3 fL (80-100); MPV 8.3 fL (7.6-11.3); RBC Red Blood Cell Count 3.18 M/uL (4.33-5.43)
[2022-08-01 15:59] LABS: Protime INR 1.46
[2022-08-01 16:06] LABS: Potassium 4.8 mmol/L (3.5-5.1); Troponin High Sensitivity 4.4 pg/mL (<58.9)
--- NOTE | 2022-08-01 16:36 | EKG ---
Test Date: 2022-08-01 Test Time: 12:42:54 Biostatistics Professor: JERRY MEASUREMENT RESULTS: Intervals: Rate: 35 OH: 230 QRSD: 72 QT: 526 QTc: 401 [place]: P: 78 OH: 230 QRS: 4 T: 26 INTERPRETIVE STATEMENTS: Marked sinus bradycardia with 1st degree AV block Low voltage QRS Abnormal ECG Compared to ECG 07/29/2022 10:23:49 First degree AV block now present Atrial fibrillation no longer present Electronically Signed On 08-01-22 16:35:12 CERTIFIED ORTHOTIST/PEDORTHIST by Rudy Peoples
--- NOTE | 2022-08-01 16:37 | RAD REPORT ---
EXAM DESCRIPTION: Dave Single View08/01/2022 3:52 pm CLINICAL HISTORY: Chest pain COMPARISON: April 2022 FINDINGS: The lungs appear clear of acute infiltrate. The heart is mildly enlarged IMPRESSION: No acute abnormalities displayed
[2022-08-01 17:46] LABS: SARS-CoV-2 Antigen Rapid Res Negative (Negative)
[2022-08-01 22:24] VITALS: BP 146/72; TEMP 98.1; O2SAT 100
--- NOTE | 2022-08-02 17:35 | EKG ---
Test Date: 2022-08-01 Test Time: 13:36:59 Car Dumper Operator: GILMAR MEASUREMENT RESULTS: Intervals: Rate: 43 CO: 236 QRSD: 82 QT: 516 QTc: 436 [place]: P: 60 CO: 236 QRS: 5 T: 25 INTERPRETIVE STATEMENTS: Marked sinus bradycardia with 1st degree AV block with premature atrial complexes with aberrant conduction Low voltage QRS Cannot rule out Inferior infarct, age undetermined Cannot rule out Anterior infarct, age undetermined Abnormal ECG Compared to ECG 08/01/2022 12:42:54 Atrial premature complex(es) now present Aberrant conduction of supraventricular beat(s) now present Myocardial infarct finding now present Electronically Signed On 08-02-22 17:32:58 COMMUNITY HEALTH EDUCATOR by Rudy Peoples
== END 2022-08-01 21:43 | disposition short-term general hospital (02) ==
LOC: ER 15:05
DX: R00.1 Bradycardia, unspecified (principal); I10 Essential (primary) hypertension; I48.91 Unspecified atrial fibrillation; E11.9 Type 2 diabetes mellitus without complications; Z79.01 Long term (current) use of anticoagulants; Z20.822 Contact with and (suspected) exposure to COVID-19
CPT/HCPCS: 36415; 71045; 80048; 84484; 85025; 85610; 85730; 87811; 93005; 99285

== ENCOUNTER → 2022-08-01 | Day surgery (SDC) | payer BC, OTHER ==
[2022-07-29 10:34] LABS: Absolute Lymphocytes (CBC) 1.1 K/uL (0.7-4.9); Hematocrit 33.5 % (39.6-49.0); Lymphocytes % 12.9 % (15.3-44.8); MCV 95.7 fL (80-100); MPV 7.7 fL (7.6-11.3)
[2022-07-29 10:40] LABS: Protime INR 1.54
[2022-07-29 10:49] LABS: Potassium 4.8 mmol/L (3.5-5.1)
[~2022-08-01] MED LIST: ATROPINE SULF 1 MG/10 ML SYR IV ONE; FENTANYL CITR 100 MCG/2 ML ONE; FLUMAZENIL 0.1 MG/ML (5 mL VIAL) IV ONE; LIDOCAINE VISCOUS 2% SOLN 15 ML UDC ONE; METOPROLOL TARTRATE 5 MG/5 ML INJ IV ONE; MIDAZOLAM HCL 2 MG/2 ML INJ ONE; MIDAZOLAM HCL 5 ML ONE; NA CHLORIDE 0.9% 500 ML ONE; PHENOL 1.4% ORAL SPRAY 180ML ONE
[2022-08-01 11:19] VITALS: BP 142/69; O2SAT 98
--- NOTE | 2022-08-01 16:49 | EKG ---
Test Date: 2022-07-29 Test Time: 10:23:49 Rock Picker: CL MEASUREMENT RESULTS: Intervals: Rate: 51 IA: QRSD: 76 QT: 448 QTc: 412 [place]: P: IA: QRS: 49 T: 38 INTERPRETIVE STATEMENTS: Atrial fibrillation with slow ventricular response Low voltage QRS Abnormal ECG Compared to ECG 05/04/2022 19:44:15 Atrial flutter no longer present Myocardial infarct finding no longer present Electronically Signed On 08-01-22 16:40:39 AVIONICS REPAIR TECHNICIAN by Rudy Peoples
--- NOTE | 2022-08-02 02:14 | OP ---
Date of Procedure: 08/01/2022 Surgeon: ROYA PEREZ Procedures Performed: 1.Transesophageal echocardiogram. 2.Electrical cardioversion to sinus rhythm. Indication: Atrial fibrillation. Description Of Procedure: After risks, benefits, and alternatives were explained, the patient agreed to procedure and signed informed consent. The patient was brought into the cardiac catheterization laboratory and then the back of the throat was numbed using lidocaine and then gave 5 mg of Versed. The CHRISTEL probe was inserted without difficulty and CHRISTEL was performed. There was no left atrial append age thrombus. Then, CHRISTEL probe was removed and charged the paddles to 200 joules and synchronized judy ctrical cardioversion was performed successfully. Converted the patient to significant sinus bradyca rdia. Conclusion: Successful CHRISTEL-guided cardioversion into normal sinus rhythm. SR/MODL Voice ID: [id number] Report ID: [id number]
--- NOTE | 2022-08-02 07:00 | TEE ---
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 NORMAL LEFT VENTRICULAR EJECTION FRACTION 55-60% 2. NO LEFT ATRIAL APPENDAGE THOMBUS US SEEN 3. MODERATE MITRAL REGURGITATION TECHNOLOGIST: NAY SOLIS
== END ==
LOC: CCL 10:30
PROVIDERS: ATTEND Internal Medicine
DX: I48.21 Permanent atrial fibrillation (principal); I12.9 Hypertensive chronic kidney disease with stage 1 through stage 4 chronic kidney disease, or unspecified chronic kidney disease; E11.22 Type 2 diabetes mellitus with diabetic chronic kidney disease; N18.30 Chronic kidney disease, stage 3 unspecified; E78.2 Mixed hyperlipidemia; Z79.01 Long term (current) use of anticoagulants; Z79.82 Long term (current) use of aspirin; Z79.899 Other long term (current) drug therapy; Z82.49 Family history of ischemic heart disease and other diseases of the circulatory system
CPT/HCPCS: 93005; 93312; 85025; 80048; 36415; 85610; 82947; 85730; 92960; J2250 ×2; J7040; J0461; J3010